=== PATIENT | male | born 1945 | race Caucasian/White ===

== ENCOUNTER → 2016-03-20 | Outpatient (CLI) | payer OTHER ==
--- NOTE | 2016-03-20 11:18 | DIAGNOSTIC IMAGING REPORT ---
CT SCAN OF THE ABDOMEN AND PELVIS WITHOUT IV CONTRAST CLINICAL HISTORY: Nephrolithiasis. Dysuria. COMPARISON STUDY: KUB dated 01/08/2013. TECHNIQUE: CT scan of the abdomen and pelvis is performed from the lung bases to the proximal femora. Images are reviewed in the axial, sagittal, and coronal planes. IV contrast was not administered for this examination. Automated dose control exposure was utilized. CT DOSE: 1692.07 mGy.cm FINDINGS: Lung bases: The heart is mildly enlarged and without pericardial effusion. The lung bases are clear noting dependent atelectasis. Liver: The unenhanced liver is normal in size, contour, and attenuation. There is no intrahepatic biliary ductal dilatation. Gallbladder: There are numerous calcified gallstones. There is no CT evidence of cholecystitis. Spleen: Normal in size and attenuation. Pancreas: Atrophic. Adrenal glands: Unremarkable. Kidneys: The unenhanced kidneys are atrophic and without hydronephrosis. There are 2 nonobstructing calculi in the lower pole of the right kidney measuring up to 8 mm. No left renal calculi are identified. There is nonspecific bilateral perinephric stranding, left greater than right. Bilateral renal cysts measure up to 3.4 cm. Additional subcentimeter hypodensities also likely represent cysts but are too small for definitive characterization. Abdominal vasculature: The abdominal aorta is normal in course and caliber noting moderate atherosclerotic calcification. Bowel: The small bowel and colon are normal in course and caliber. There is a large duodenal diverticulum. There is moderate sigmoid diverticulosis without CT evidence of acute diverticulitis. Moderate colonic fecal retention is observed. The appendix is well-visualized and normal. Peritoneum: There is no intraperitoneal free air or abdominal ascites. Lymphadenopathy: None. Pelvic viscera: The prostate gland is mildly enlarged and heterogeneous, measuring 5.4 cm in transverse diameter. The bladder wall appears thickened and trabeculated suggesting the sequelae of chronic outlet obstruction. Findings suggest previous right inguinal herniorrhaphy. There is a fat-containing left inguinal hernia. Skeletal structures: The skeletal structures are osteopenic. There is moderate lumbosacral spondylosis. No lytic or blastic lesions are seen. Chronic posttraumatic deformity and postoperative changes identified in the right pelvis. Arthritic change is present in the hips, right greater than left. IMPRESSION: 1. The kidneys demonstrate cortical atrophy and are without hydronephrosis. 2. There is nonspecific bilateral perinephric stranding, left greater than right. Correlate clinically and with urinalysis for evidence of urinary tract infection/pyelonephritis. 3. There are nonobstructing right renal calculi. No left renal calculi are identified. 4. Cholelithiasis without CT evidence of acute cholecystitis. 5. Cardiomegaly. 6. Moderate sigmoid diverticulosis without CT evidence of acute diverticulitis. 7. Prostatomegaly with evidence of chronic bladder outlet obstruction. 8. Additional findings as above. Electronically signed by: Conor Dick M.D. 03/20/2016 11:16 AM Dictated Date/Time: 03/20/2016 11:07 AM
== END | disposition home or self-care (01) ==
LOC: C.CTS 10:40
PROVIDERS: ATTEND Urology
DX: N20.0 Calculus of kidney (principal); R30.0 Dysuria; K80.20 Calculus of gallbladder without cholecystitis without obstruction; I51.7 Cardiomegaly; K57.92 Diverticulitis of intestine, part unspecified, without perforation or abscess without bleeding; N40.1 Benign prostatic hyperplasia with lower urinary tract symptoms

== ENCOUNTER → 2016-03-28 | Outpatient (CLI) | payer OTHER | END | disposition home or self-care (01) | LOC: C.LAB 10:32 | PROVIDERS: ATTEND Urology | DX: R30.0 Dysuria (principal) ==

== ENCOUNTER → 2016-05-07 | Outpatient (CLI) | payer OTHER ==
[2016-05-07 10:47] LABS: HEMATOCRIT 41.7 % (42-52); MEAN CORPUSCULAR HEMOGLOBIN 30.2 pg (25-34); MEAN CORPUSCULAR HGB CONC 34.3 g/dl (32-36); PLATELET COUNT 206 K/uL (130-400); RED BLOOD COUNT 4.74 M/uL (4.7-6.1); WHITE BLOOD COUNT 9.65 K/uL (4.8-10.8)
[2016-05-07 10:56] LABS: URINE APPEARANCE CLEAR (CLEAR); URINE BILIRUBIN NEG (NEG); URINE COLOR YELLOW; URINE NITRITE NEG (NEG); URINE SPECIFIC GRAVITY 1.011 (1.000-1.030); UROBILINOGEN NEG (NEG)
[2016-05-07 11:13] LABS: MANUAL MICROSCOPIC REQUIRED? NO; REVIEW REQ? NO
[2016-05-07 11:27] LABS: BLOOD UREA NITROGEN 29 mg/dl (7-18); BUN/CREATININE RATIO 15.3 (10-20); CARBON DIOXIDE 28 mmol/L (21-32); CHLORIDE 106 mmol/L (98-107); GLUCOSE 140 mg/dl (70-99); PHOSPHORUS 3.9 mg/dl (2.5-4.9); POTASSIUM 4.7 mmol/L (3.5-5.1); SODIUM 141 mmol/L (136-145)
[2016-05-07 11:43] LABS: URINE PROTIEN/CREAT RATIO 1.1 (0-0.2); URINE TOTAL PROTEIN 124.9 mg/dl (0-11.9)
== END | disposition home or self-care (01) ==
LOC: C.LAB1850 09:13
PROVIDERS: ATTEND Internal Medicine Nephrology
DX: D64.9 Anemia, unspecified (principal); N20.0 Calculus of kidney; N18.3 Chronic kidney disease, stage 3 (moderate); I12.9 Hypertensive chronic kidney disease with stage 1 through stage 4 chronic kidney disease, or unspecified chronic kidney disease; E55.9 Vitamin D deficiency, unspecified

== ENCOUNTER → 2016-05-14 | Outpatient (CLI) | payer OTHER ==
--- NOTE | 2016-05-14 10:58 | DIAGNOSTIC IMAGING REPORT ---
KUB CLINICAL HISTORY: N20.0 [id number] nephrocalcinosis COMPARISON STUDY: 01/08/2013 FINDINGS: Postoperative changes to the right hip as well as right acetabular region. No significant nephrocalcinosis. Nonobstructive bowel pattern. IMPRESSION: Normal study Electronically signed by: Burt Rivero M.D. 05/14/2016 10:56 AM Dictated Date/Time: 05/14/2016 10:51 AM
== END | disposition home or self-care (01) ==
LOC: C.LAB 09:48
PROVIDERS: ATTEND Urology
DX: N20.0 Calculus of kidney (principal); N40.0 Benign prostatic hyperplasia without lower urinary tract symptoms; N41.1 Chronic prostatitis

== ENCOUNTER → 2016-05-25 | Outpatient (CLI) | payer OTHER ==
[~2016-05-25] MED LIST: AMLO-110 PO; ASCO1CAP3 PO; ATOR-22 PO; CIPR250T3 PO; DUTA0.5C PO; ERGO500037 PO; FERR1TAB23 PO; FLM4 PO; INSU1.2I INJ; METO25TA56 PO; NVLGI/PEN INJ; OXYC7.5T65 PO; PANT40TA PO; PHEN-939 PO; SUCR1TAB29 PO; TRAV0.00 OP; URC10 PO
--- NOTE | 2016-05-25 16:11 | DIAGNOSTIC IMAGING REPORT ---
KUB CLINICAL HISTORY: N20.0 [id number] COMPARISON STUDY: 05/14/2016 FINDINGS: The renal shadows are partially obscured by bowel gas and fecal material. No renal calculi are visualized. There is a left pelvic basin calcification unchanged the prior study likely are presenting a phlebolith. There is no pathologic bowel dilatation. Postsurgical changes involve the right acetabular region. There are osteoarthritic changes present within the right hip with marked joint space narrowing. IMPRESSION: 1. No evidence of pathologic bowel dilatation 2. No urinary tract calculi are visualized on conventional radiographic imaging Electronically signed by: Mor Saini M.D. 05/25/2016 4:09 PM Dictated Date/Time: 05/25/2016 4:08 PM
== END | disposition home or self-care (01) ==
LOC: C.RAD 15:46
PROVIDERS: ATTEND Nurse Practitioner Family
DX: N20.0 Calculus of kidney (principal)

== ENCOUNTER → 2016-11-07 | Outpatient (CLI) | payer OTHER ==
[2016-11-07 17:19] LABS: HEMATOCRIT 40.7 % (42-52); MEAN CELL VOLUME 90.8 fL (80-100); MEAN CORPUSCULAR HEMOGLOBIN 29.9 pg (25-34); MEAN CORPUSCULAR HGB CONC 32.9 g/dl (32-36); MEAN PLATELET VOLUME 10.6 fL (7.4-10.4); PLATELET COUNT 214 K/uL (130-400); RED BLOOD COUNT 4.48 M/uL (4.7-6.1); WHITE BLOOD COUNT 9.12 K/uL (4.8-10.8)
[2016-11-07 17:28] LABS: URINE APPEARANCE CLEAR (CLEAR); URINE BILIRUBIN NEG (NEG); URINE COLOR YELLOW; URINE EPITHELIAL CELL AUTO 0-5 /lpf (0-5); URINE NITRITE NEG (NEG); URINE SPECIFIC GRAVITY 1.018 (1.000-1.030); UROBILINOGEN NEG (NEG)
[2016-11-07 17:34] LABS: MANUAL MICROSCOPIC REQUIRED? NO; REVIEW REQ? NO
[2016-11-07 17:46] LABS: URINE PROTIEN/CREAT RATIO 1.4 (0-0.2); URINE TOTAL PROTEIN 143.7 mg/dl (0-11.9)
[2016-11-07 17:48] LABS: ALB/GLOB RATIO 0.9 (0.9-2); ALKALINE PHOSPHATASE 105 U/L (45-117); ALT/SGPT 21 U/L (12-78); AST/SGOT 15 U/L (15-37); BLOOD UREA NITROGEN 33 mg/dl (7-18); BUN/CREATININE RATIO 17.5 (10-20); CARBON DIOXIDE 30 mmol/L (21-32); CHLORIDE 108 mmol/L (98-107); GLUCOSE 80 mg/dl (70-99); MAGNESIUM 2.2 mg/dl (1.8-2.4); SODIUM 142 mmol/L (136-145); URIC ACID 6.8 mg/dl (2.6-7.2)
== END | disposition home or self-care (01) ==
LOC: C.LAB1850 15:39
PROVIDERS: ATTEND Internal Medicine Nephrology
DX: D64.9 Anemia, unspecified (principal); N20.0 Calculus of kidney; I12.9 Hypertensive chronic kidney disease with stage 1 through stage 4 chronic kidney disease, or unspecified chronic kidney disease; N18.3 Chronic kidney disease, stage 3 (moderate); E55.9 Vitamin D deficiency, unspecified

== ENCOUNTER → 2016-11-28 | Outpatient (CLI) | payer OTHER ==
--- NOTE | 2016-11-28 08:17 | DIAGNOSTIC IMAGING REPORT ---
CT OF THE ABDOMEN AND PELVIS WITHOUT CONTRAST CLINICAL HISTORY: Nephrolithiasis. COMPARISON STUDY: CT of the abdomen and pelvis March 20, 2016 and KUB May 25, 2016. TECHNIQUE: Axial images of the abdomen and pelvis were obtained without IV contrast. Images were reviewed in the axial, sagittal, and coronal planes. A dose lowering technique was utilized adhering to the principles of ALARA. FINDINGS: Several right renal calculi are noted, the largest of which is a 7 mm lower pole calculus. There are a few punctate left renal calculi. There are no ureteral calculi and there is no hydronephrosis. There are no bladder calculi. The prostate is mildly enlarged. Mild bilateral perinephric infiltration is unchanged. There are multiple water attenuation bilateral renal lesions. These are suboptimally assessed on this exam but favor cysts. There are gallstones within the gallbladder. Unenhanced images of the liver, spleen, adrenal glands and pancreas are unremarkable. Duodenal diverticula are noted. There is colonic diverticulosis without evidence for acute diverticulitis. A previous right acetabular internal fixation is noted. There are no suspicious osseous lesions. There is no lymphadenopathy. IMPRESSION: 1. Bilateral nephrolithiasis, slightly increased since CT of March 20, 2016. No ureteral calculi or hydronephrosis. 2. Cholelithiasis. 3. Colonic diverticulosis without evidence for acute diverticulitis. 4. Mild enlargement of the prostate. Electronically signed by: Pablo Owusu M.D. 11/28/2016 8:15 AM Dictated Date/Time: 11/28/2016 8:00 AM
== END | disposition home or self-care (01) ==
LOC: C.CTS 07:30
PROVIDERS: ATTEND Urology
DX: N20.0 Calculus of kidney (principal); K80.20 Calculus of gallbladder without cholecystitis without obstruction; K57.30 Diverticulosis of large intestine without perforation or abscess without bleeding

== ENCOUNTER → 2016-12-11 | Outpatient (CLI) | payer OTHER | END | disposition home or self-care (01) | LOC: C.LABSPEC 17:04 | PROVIDERS: ATTEND Nurse Practitioner Adult Health | DX: N41.1 Chronic prostatitis (principal) ==

== ENCOUNTER 2017-01-28 08:14 | Day surgery (SDC) | payer OTHER ==
[2017-01-16 13:27] VITALS: BMI 38.0
--- NOTE | 2017-01-16 13:56 | PAT Medication Instructions ---
Service Date Jan 16, 2017. Current Home Medication List Amlodipine (Norvasc), 5 MG PO QAM Ascorbic Acid (Vitamin C), 500 MG PO QPM Atorvastatin (Lipitor), 20 MG PO QAM Dutasteride (Avodart), 0.5 MG PO QAM Ergocalciferol (Vitamin D 08180 Unit), 50,000 UNIT PO MONTHLY Ferrous Sulfate (Iron), 325 MG PO BID Insulin Aspart (Novolog Flexpen), INJ SC Insulin Glargine (Toujeo Solostar), 74 UNITS INJ HS Metoprolol Tartrate (Lopressor) (Lopressor), 25 MG PO BID Pantoprazole (Protonix), 40 MG PO QAM Potassium Citrate (Potassium Citrate), 10 MEQ PO QAM Sucralfate (Carafate), 1 GM PO QID Tamsulosin HCl (Tamsulosin HCl), 0.8 MG PO HS Travoprost (Travatan Z), 1 DROPS OP HS Medication Instructions For Your Scheduled Surgery - Hold the following medications the morning of surgery: Dutasteride (Avodart), 0.5 MG PO QAM Ergocalciferol (Vitamin D 82291 Unit), 50,000 UNIT PO MONTHLY Ferrous Sulfate (Iron), 325 MG PO BID Insulin Aspart (Novolog Flexpen), INJ SC Potassium Citrate (Potassium Citrate), 10 MEQ PO QAM Sucralfate (Carafate), 1 GM PO QID - Take the following medications the morning of surgery with a sip of water: Metoprolol Tartrate (Lopressor) (Lopressor), 25 MG PO BID Pantoprazole (Protonix), 40 MG PO QAM Atorvastatin (Lipitor), 20 MG PO QAM Amlodipine (Norvasc), 5 MG PO QAM - Take the following medications as scheduled the night before surgery: Tamsulosin HCl (Tamsulosin HCl), 0.8 MG PO HS Travoprost (Travatan Z), 1 DROPS OP HS Sucralfate (Carafate), 1 GM PO QID Metoprolol Tartrate (Lopressor) (Lopressor), 25 MG PO BID Insulin Glargine (Toujeo Solostar), 74 UNITS INJ HS Insulin Aspart (Novolog Flexpen), INJ SC Ferrous Sulfate (Iron), 325 MG PO BID Ascorbic Acid (Vitamin C), 500 MG PO QPM If you have any questions please call us at [phone] or [phone] or [phone]
--- NOTE | 2017-01-16 14:27 | DIAGNOSTIC IMAGING REPORT ---
CHEST 2 VIEWS ROUTINE HISTORY: Preop. COMPARISON: None. FINDINGS: There are low lung volumes. There are few bibasilar linear densities suggesting subsegmental atelectasis or scarring. The lungs are otherwise clear. No pleural effusions. No pneumothorax. IMPRESSION: No acute process. Electronically signed by: Nasim Sanchez M.D. 01/16/2017 2:26 PM Dictated Date/Time: 01/16/2017 2:24 PM
[2017-01-16 14:45] LABS: BASO % 0.2 %; BASO ABS # 0.02 K/uL (0-0.2); COMPLETE YES; EOS % 3.7 %; HEMATOCRIT 40.6 % (42-52); IG% 0.2 %; LYMPH ABS # 1.73 K/uL (1.2-3.4); MEAN CORPUSCULAR HEMOGLOBIN 30.3 pg (25-34); MEAN CORPUSCULAR HGB CONC 33.3 g/dl (32-36); MEAN PLATELET VOLUME 10.5 fL (7.4-10.4); MONO % 7.3 %; NEUT % 69.6 %; PLATELET COUNT 216 K/uL (130-400); RED BLOOD COUNT 4.46 M/uL (4.7-6.1); WHITE BLOOD COUNT 9.12 K/uL (4.8-10.8)
[2017-01-16 14:58] LABS: URINE APPEARANCE CLEAR (CLEAR); URINE BILIRUBIN NEG (NEG); URINE COLOR YELLOW; URINE NITRITE NEG (NEG); URINE PH 6.5 (4.5-7.5); URINE SPECIFIC GRAVITY 1.017 (1.000-1.030); UROBILINOGEN NEG (NEG)
[2017-01-16 15:01] LABS: MANUAL MICROSCOPIC REQUIRED? NO; REVIEW REQ? NO
[2017-01-16 15:46] LABS: CREATININE 2.04 mg/dl (0.60-1.40)
[2017-01-16 15:47] LABS: BUN/CREATININE RATIO 13.9 (10-20); CALCIUM 8.8 mg/dl (8.5-10.1); POTASSIUM 5.2 mmol/L (3.5-5.1)
[~2017-01-28] VITALS: Ht 182.9 cm; Wt 128.8 kg
[~2017-01-28 08:14] MED LIST changes: -CIPR250T3 PO; +CIPROFLOXACIN / D5W 400 MG IV SCH; +LACTATED RINGER'S 1000ML 1,000 ML IV SCH; -OXYC7.5T65 PO; -PHEN-939 PO
--- NOTE | 2017-01-28 08:33 | History & Physical Bridge Note ---
H&P Re-Evaluation Bridge Note: I have examined the patient, reviewed the History & Physical and in the interval since the performance of the History & Physical I have noted the following changes of clinical significance: No changes noted
[2017-01-28 08:35] VITALS: BP 190/97; PULSE 88; TEMP 36.7; O2SAT 95; Ht 182.9 cm; Wt 128.8 kg
[2017-01-28] MEDS ORDERED: LIDOCAINE HCL 2% 2 ML VIAL (20MG/ML) ONE (09:29)
[2017-01-28] MEDS ORDERED: DEXAMETHASONE SOD INJ 4 MG/ML VIAL ONE (09:29)
[2017-01-28] MEDS ORDERED: ONDANSETRON INJ 2 MG/ML 2 ML VIAL ONE (09:29)
[2017-01-28] MEDS ORDERED: PROPOFOL IV EMULSION 10 MG/ML 20 ML VIAL IV ONE (09:29)
[2017-01-28] MEDS ORDERED: FENTANYL CITRATE INJ 50 MCG/1 ML 2 ML VIAL ONE (09:29)
[2017-01-28] MEDS ORDERED: MIDAZOLAM HCL 1 MG/ML 2ML VIAL ONE (09:29)
[2017-01-28] MEDS ORDERED: LABETALOL HCL IV 5 MG/ML 20ML IV PRN (10:00)
[2017-01-28] MEDS ORDERED: ONDANSETRON INJ 2 MG/ML 2 ML VIAL IV PRN (10:00)
[2017-01-28] MEDS ORDERED: ATROPINE SULFATE 0.1 MG/ML 5ML SYR IV PRN (10:00)
[2017-01-28] MEDS ORDERED: HYDROmorphone INJ 1 MG/ML SYR IV PRN (10:00)
[2017-01-28] MEDS ORDERED: MEPERIDINE HCL 25 MG/ML CARP IV PRN (10:00)
[2017-01-28] MEDS ORDERED: EpHEDrine SULFATE INJ 50 MG/ML AMP IV PRN (10:00)
[2017-01-28] MEDS ORDERED: BELLADONNA/OPIUM SUPP 60 MG SUPP PR ONE (10:44)
[2017-01-28] MEDS: FENTANYL CITRATE INJ 50 MCG/1 ML 2 ML VIAL IV PRN ×4 (11:28→11:43)
[2017-01-28] MEDS ORDERED: OXYC7.5T65 PO (11:29)
[2017-01-28] MEDS ORDERED: CIPR250T3 PO (11:29)
[2017-01-28] MEDS ORDERED: PHEN-939 PO (11:29)
--- NOTE | 2017-01-28 11:36 | Discharge Instructions ---
Discharge Instructions Date of Service Jan 28, 2017. Admission Reason for Admission: Benign Prostatic Hyperplasia Discharge Discharge Diagnosis / Problem: BPH Discharge Goals Goal(s): Improve function, Improve disease control, Therapeutic intervention Activity Recommendations Activity Limitations: as noted below Lifting Limitations: no more than 25 pounds, gradually increase as tolerated Exercise/Sports Limitations: rest today, gradually increase as tolerated May Resume Sexual Activity: after follow-up appointment Shower/Bathe: tomorrow (no tub bath with jameson in place, may shower) Driving or Machine Use: resume 1 day after discharge . Instructions / Follow-Up Instructions / Follow-Up Jameson to gravity drainage as instructed, office visit for catheter removal Jan 29, 2017 at 1:40 PM. Current Hospital Diet Patient's current hospital diet: Discharge Diet Recommended Diet: Regular Diet (good fluid intake) Procedures Procedures Performed: Meatal Dilation; Greenlight Transuretheral Resection of Prostate Pending Studies Studies pending at discharge: no Medical Emergencies . Who to Call and When: Medical Emergencies: If at any time you feel your situation is an emergency, please call 911 immediately. . Non-Emergent Contact Non-Emergency issues call your: Urologist Call Non-Emergent contact if: you have a fever, temperature is above 101, your pain is not controlled, your pain is worsening, your pain is unusual for you, your pain is concerning you, you have any medication questions . . "Provider Documentation" section prepared by Steve Eid. . VTE Core Measure Inpt VTE Proph given/why not?: SCD's [place] Drug Monitoring Program Search Results: patient reviewed within database, no issues identified
--- NOTE | 2017-01-28 11:39 | [facility] Post Operative Brief Note ---
Immediate Operative Summary Operative Date Jan 28, 2017. Pre-Operative Diagnosis Benign Prostatic Hyperplasia Post-Operative Diagnosis Benign Prostatic Hyperplasia Procedure(s) Performed Meatal Dilation; Greenlight Transuretheral Resection of Prostate Surgeon Dr. Lokesh Eid Director Business Management Surgeon(s) NA Estimated Blood Loss 5mL Findings Open fossa after 82K J used with excellent hemostasis. Specimens none per surgeon Drains 20 fr 10 cc H2O jameson Anesthesia GALMA Complication(s) None Disposition Recovery Room / PACU
[2017-01-28] MEDS ORDERED: OXYCODONE/ACETAMINOPHEN 5-325 TAB PO PRN (11:45)
[2017-01-28] MEDS ORDERED: PHENAZOPYRIDINE HCL 100 MG TAB PO PRN (11:45)
[2017-01-28] MEDS ORDERED: PHENAZOPYRIDINE HCL 200 MG TAB PO ONE (11:55)
[2017-01-28 12:15] VITALS: BP 160/86; PULSE 64; TEMP 36.3; O2SAT 93
--- NOTE | 2017-01-28 12:41 | Anesthesiology Progress Note ---
Anesthesia Post Op Note Date & Time Jan 28, 2017 at 12:41 Vital Signs Pain Intensity: 4 Vital Signs Past 12 Hours Date Time Temp Pulse Resp B/P (MAP) Pulse Ox O2 Delivery O2 Flow Rate FiO2 01/28/17 12:05 67 17 168/90 94 Nasal Cannula 2 01/28/17 11:55 36.3 67 17 167/96 94 Nasal Cannula 3 01/28/17 11:45 77 16 135/99 92 Nasal Cannula 5 01/28/17 11:35 79 20 147/75 92 Oxymask 10 01/28/17 11:25 75 18 159/92 96 Oxymask 10 01/28/17 11:16 36.3 79 14 132/97 95 Oxymask 10 01/28/17 08:35 36.7 88 18 190/97 (128) 95 Room Air Notes Mental Status: alert / awake / arousable, participated in evaluation Pt Amnestic to Procedure: Yes Nausea / Vomiting: adequately controlled Pain: adequately controlled Airway Patency, RR, SpO2: stable & adequate BP & HR: stable & adequate Hydration State: stable & adequate Anesthetic Complications: no major complications apparent
[2017-01-28 12:50] VITALS: BP 150/83; PULSE 66; TEMP 36.4; O2SAT 95
[2017-01-28 13:15] VITALS: BP 151/85; PULSE 72; O2SAT 96
--- NOTE | 2017-01-28 14:15 | [facility] Operative Report ---
Operative Report Operative Date Jan 28, 2017. Pre-Operative Diagnosis Benign Prostatic Hyperplasia Post-Operative Diagnosis Benign Prostatic Hyperplasia, Meatal Stenosis Procedure(s) Performed Meatal Dilation; Greenlight Transuretheral Resection of Prostate Surgeon Dr. Lokesh Eid Mobile Application Tester Surgeon(s) NA Estimated Blood Loss 5mL Findings Open fossa after 82KJ energy used, excellent hemostasis. Specimens none per surgeon Drains 20 fr 10 cc H2O jameson Anesthesia GALMA Complication(s) None Disposition Recovery Room / PACU Indications 71-year-old male with recurrent bouts of worsening voiding despite the use of maximal medical therapy who is here today for greenlight vaporization of his prostate gland to manage his disease. Please see H&P for further details. Informed consent reviewed with the patient preoperatively today. Intravenous ciprofloxacin provided for antibiotic coverage and SCDs used for DVT prophylaxis. Description of Procedure Patient was properly identified and brought into the operative suite after identification of appropriate consent of the chart. General anesthesia with laryngeal mask was initiated and patient was prepped and draped in the standard fashion for this procedure. Full timeout was followed. Greenlight laser resectoscope was attempted to be introduced into the bladder with resistance at the level of the meatus. This was dilated using serial male dilators to a 20 [place] caliber then allowing for easy passage of the greenlight laser resectoscope. Bladder was surveyed illustrating ureteral orifices which were adequately removed from the bladder neck and moderate trabeculation. No intravesical lesions, papillary masses or mucosal changes were appreciated. No calculi were present. Using a SideFire greenlight laser fiber circumferential vaporization of the prostate gland was performed. Relaxing incisions at the bladder neck were made to avoid future bladder neck contracture. After using approximately 82,000 J of energy prostatic fossa was noted to be well open with excellent hemostasis. Bladder was partially distended and resectoscope was removed. 20 [place]ian Jameson catheter was placed with return of clear irrigant with 10 mL of sterile water in the balloon. Anesthesia was reversed after provision of the belladonna and opium suppository. Patient was transferred to the recovery room in stable condition. Follow-up care: Patient will be discharged home with a prescription for ciprofloxacin, Percocet and Pyridium. Outpatient trial void is confirmed. Patient is instructed to contact our service if he note any fevers, chills, nausea, vomiting or other difficulties in the postoperative period. Discharge instructions are provided. I attest to the content of the Intraoperative Record and any orders documented therein. Any exceptions are noted below.
== END 2017-01-28 14:05 | disposition home or self-care (01) ==
LOC: C.ACU 08:14
PROVIDERS: ATTEND Urology
DX: N40.1 Benign prostatic hyperplasia with lower urinary tract symptoms (principal); N32.89 Other specified disorders of bladder; N41.1 Chronic prostatitis; R30.0 Dysuria; D64.9 Anemia, unspecified; I12.9 Hypertensive chronic kidney disease with stage 1 through stage 4 chronic kidney disease, or unspecified chronic kidney disease; N18.3 Chronic kidney disease, stage 3 (moderate)

== ENCOUNTER → 2017-05-06 | Outpatient (CLI) | payer OTHER ==
[~2017-05-06] MED LIST changes: +CIPR250T3 PO; -CIPROFLOXACIN / D5W 400 MG IV SCH; -LACTATED RINGER'S 1000ML 1,000 ML IV SCH; +OXYC7.5T65 PO
--- NOTE | 2017-05-06 11:57 | DIAGNOSTIC IMAGING REPORT ---
KUB CLINICAL HISTORY: Chronic prostatitis. COMPARISON STUDY: CT of the abdomen and pelvis November 28, 2016 and KUB May 25, 2016. FINDINGS: Right acetabular internal fixation is incidentally noted. Bowel gas pattern is normal. A left pelvic calcification was shown to represent a phlebolith on prior CT. No urinary calculi are identified however the calculi shown on CT of November 28, 2016 may be radiolucent. IMPRESSION: No urinary calculi identified by radiography. However, the calculi shown on prior CT may be radiolucent by radiography. Electronically signed by: Pablo Owusu M.D. 05/06/2017 11:56 AM Dictated Date/Time: 05/06/2017 11:51 AM
[2017-05-06 12:42] LABS: BLOOD UREA NITROGEN 28 mg/dl (7-18); CREATININE 1.97 mg/dl (0.60-1.40)
== END | disposition home or self-care (01) ==
LOC: C.LAB 10:41
PROVIDERS: ATTEND Urology
DX: N41.1 Chronic prostatitis (principal)

== ENCOUNTER → 2017-05-06 | Outpatient (CLI) | payer OTHER ==
[2017-05-06 12:16] LABS: HEMATOCRIT 40.9 % (42-52); HEMOGLOBIN 13.8 g/dL (14.0-18.0); MEAN CELL VOLUME 89.1 fL (80-100); MEAN CORPUSCULAR HEMOGLOBIN 30.1 pg (25-34); MEAN CORPUSCULAR HGB CONC 33.7 g/dl (32-36); PLATELET COUNT 271 K/uL (130-400); WHITE BLOOD COUNT 10.25 K/uL (4.8-10.8)
[2017-05-06 12:38] LABS: ALBUMIN 3.1 gm/dl (3.4-5.0); BLOOD UREA NITROGEN 28 mg/dl (7-18); CARBON DIOXIDE 27 mmol/L (21-32); CREATININE 2.07 mg/dl (0.60-1.40); GLUCOSE 128 mg/dl (70-99); POTASSIUM 5.2 mmol/L (3.5-5.1); SODIUM 139 mmol/L (136-145)
[2017-05-06 12:39] LABS: PHOSPHORUS 3.2 mg/dl (2.5-4.9)
== END | disposition home or self-care (01) ==
LOC: C.LAB1850 10:02
PROVIDERS: ATTEND Internal Medicine Nephrology
DX: E11.9 Type 2 diabetes mellitus without complications (principal); D64.9 Anemia, unspecified; N20.0 Calculus of kidney; N18.3 Chronic kidney disease, stage 3 (moderate); I12.9 Hypertensive chronic kidney disease with stage 1 through stage 4 chronic kidney disease, or unspecified chronic kidney disease; E55.9 Vitamin D deficiency, unspecified

== ENCOUNTER → 2017-09-13 | Outpatient (CLI) | payer OTHER ==
[~2017-09-13] MED LIST changes: -AMLO-110 PO; -CIPR250T3 PO; -FLM4 PO; +LOSA1TAB PO; -OXYC7.5T65 PO; -URC10 PO
[2017-09-13 12:27] LABS: BLOOD UREA NITROGEN 39 mg/dl (7-18); CALCIUM 8.3 mg/dl (8.5-10.1); CARBON DIOXIDE 24 mmol/L (21-32); CREATININE 2.17 mg/dl (0.60-1.40); GLUCOSE 98 mg/dl (70-99); POTASSIUM 4.8 mmol/L (3.5-5.1); SODIUM 139 mmol/L (136-145)
--- NOTE | 2017-10-25 07:07 | CODING QUERY MEDICAL NECESSITY ---
TREATMENT RENDERED WITHOUT A DIAGNOSIS To promote full compliance with coding requirements relating to patient care, physician participation is requested in all cases of city controller uncertainty. Please assist us with providing a diagnosis/symptom for the test(s) below: A diagnosis/symptom was not documented on your Order. A valid diagnosis/symptom is required to bill all insurances. Please remember that we are unable to code a diagnosis of rule out, probable, possible, questionable, or suspected. Tests that require a diagnosis: DOS: 09/13/17 * PARTIAL RENAL PROFILE DIAGNOSIS: Provider Signature: Date: Thank you Zehra Armstrong [employer] Information Management Once completed, please kindly fax back to [phone] For questions please call [phone]
== END | disposition home or self-care (01) ==
LOC: C.LAB1850 10:39
PROVIDERS: ATTEND Family Medicine
DX: N17.9 Acute kidney failure, unspecified (principal)

== ENCOUNTER 2018-02-23 02:03 | Inpatient (IN) ==
[2018-02-23] MEDS ORDERED: SODIUM CHLORIDE 0.9% 1000ML 1,000 ML IV ONE (02:25)
[2018-02-23] MEDS ORDERED: KETOROLAC (**for OR use only**) 30 MG/ML VIAL IV STA (02:25)
[2018-02-23] MEDS ORDERED: KETOROLAC 30 MG/ML VIAL ONE (02:32)
[2018-02-23 02:45] LABS: Basophils # (auto) 0.01 K/uL (0-0.2); Basophils % (auto) 0.1 %; Eosinophils # (auto) 0.22 K/uL (0-0.5); Eosinophils % (auto) 1.8 %; Hematocrit (blood only) 42.4 % (42-52); Hemoglobin 14.4 g/dL (14.0-18.0); Immature Granulocytes # (auto) 0.03 K/uL (0.00-0.02); Immature Granulocytes % (auto) 0.2 %; Lymphocytes # (auto) 1.66 K/uL (1.2-3.4); Lymphocytes % (auto) 13.8 %; Mean Corpuscular Volume 90.8 fL (80-100); Mean Platelet Volume 10.8 fL (7.4-10.4); Monocytes # (auto) 0.77 K/uL (0.11-0.59); Monocytes % (auto) 6.4 %; Neutrophils # (auto) 9.32 K/uL (1.4-6.5); Neutrophils % (auto) 77.7 %; Platelet Count 203 K/uL (130-400); RDW Coefficient of Variation 13.1 % (11.5-14.5); RDW Standard Deviation 43.1 fL (36.4-46.3); Red Blood Count 4.67 M/uL (4.7-6.1); White Blood Count 12.01 K/uL (4.8-10.8)
[2018-02-23 02:47] LABS: Appearance Urine Clear (Clear); Bacteria Urine Automated Negative (Negative); Bilirubin Urine Negative (Negative); Cast Urine Automated 0 /lpf (0-5); Color Urine Yellow; Epithelial Cell Urine Auto 0-5 /lpf (0-5); Glucose Urine UA Negative (Negative); Ketones Urine Negative (Negative); Leukocyte Esterase Urine Negative (Negative); Nitrite Urine Negative (Negative); Protein Urine 2+ (Negative); Specific Gravity Urine 1.009 (1.000-1.030); Urobilinogen Urine Negative (Negative)
[2018-02-23 03:02] LABS: Albumin Level 3.4 gm/dl (3.4-5.0); BUN Creatinine Ratio 15.9 (10-20); Est GFR (African American) 31.8; Est GFR (Non-African American) 27.4; Potassium 4.7 mmol/L (3.5-5.1)
[2018-02-23 03:05] LABS: Albumin Globulin Ratio 0.8 (0.9-2); Bilirubin,Total 0.4 mg/dl (0.1-1); Globulin 4.3 gm/dl (2.5-4.0); Total Protein 7.7 gm/dl (6.4-8.2)
[2018-02-23] MEDS ORDERED: SODIUM CHLORIDE 0.9% 500 ML IV SCH (04:15)
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
[2018-02-23] MEDS ORDERED: DEXTROSE 50% 50 ML SYRINGE IV PRN (06:58)
[2018-02-23] MEDS ORDERED: GLUCAGON FOR INJ 1 MG VIAL SQ PRN (06:58)
[2018-02-23] MEDS ORDERED: GLUCOSE 10 TABS/TUBE PO PRN (06:58)
[2018-02-23] MEDS ORDERED: GLUCOSE 40% GEL 15 GM TUBE PO PRN (06:58)
[2018-02-23] MEDS ORDERED: ACETAMINOPHEN 1000 MG/100 ML IV IV PRN (06:58)
[2018-02-23] MEDS ORDERED: CARBOHYDRATES FOR HYPOGLYCEMIA PO PRN (06:58)
[2018-02-23] MEDS ORDERED: Nursing to Pharmacy Communication ONE ×3 (07:03→22:21)
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
[2018-02-23] MEDS: SODIUM CHLORIDE 0.9% 1000ML 1,000 ML IV SCH ×2 (08:02→16:46)
[2018-02-23] MEDS: SUCRALFATE 1 GM TAB PO SCH ×4 (08:02→20:40)
[2018-02-23] MEDS: PANTOprazole 40 MG TAB PO SCH (08:03)
[2018-02-23] MEDS: LOSARTAN POTASSIUM 25 MG TAB PO SCH (08:03)
[2018-02-23] MEDS: METOPROLOL TARTRATE 25 MG TAB PO SCH ×2 (08:03→20:40)
--- NOTE | 2018-02-23 08:31 | CT Scan Report ---
ABDOMEN AND PELVIS CT WITHOUT CONTRAST CT DOSE: 1895.96 mGy.cm HISTORY: Acute right-sided flank pain eval for right sided stone TECHNIQUE: Multiaxial CT images of the abdomen and pelvis were performed without contrast. A dose lo wering technique was utilized adhering to the principles of ALARA. COMPARISON STUDY: CT abdomen and pelvis 10/29/2017. FINDINGS: Mild dependent subsegmental bibasilar atelectasis. No pneumatosis or pneumoperitoneum. The imaged inf erior cardiac chambers are unremarkable with coronary arterial calcifications noted. Cholelithiasis. No CT evidence of acute cholecystitis. Liver, spleen, pancreas and adrenal glands are unremarkable. Hypodense lesions of the bilateral kidneys are suggestive of renal cyst. Mild bilateral cortical thin leilani and parenchymal scarring of the kidneys with bilateral perinephric stranding. Nonobstructing nep hrolithiasis of the inferior pole right kidney with conglomerate calculi measuring up to 1.1 cm. Kenneth tionally, there appears to be two calculi within the dependent renal pelvis on the right measuring up to 2 mm. Mild to moderate right-sided hydroureteronephrosis secondary to a 9 x 8 x 11 mm calculus of the proximal right ureter just distal to the ureteropelvic junction at the level of the superior end plate L2. Mild reactive perinephric and periureteral inflammatory stranding. Mild wall thickening wit h partial distention of the bladder. Prominent prostate. Small fat filled left inguinal hernia. Calci fication tortuosity of the abdominal aorta without aneurysm. No adenopathy. No bowel obstruction or focal bowel wall thickening. Large duodenal diverticulum. Colonic diverticulo sis without CT evidence of acute diverticulitis. Normal appendix. Evidence of remote epiploic appenda gitis about the ascending colon, image 240 series 3. Soft tissues are within normal limits. Bones beck ear to be intact. Multilevel facet arthrosis, spondylitic spurring with facet arthrosis. ORIF changes about the right acetabulum. Severe joint space narrowing with prominent subcortical cystic changes o f the right femoral acetabular joint. IMPRESSION: 1. Mild to moderate right-sided hydroureteronephrosis secondary to a 9 x 8 x 11 mm calculus of the pr oximal right ureter at the level of the superior endplate L2. 2. Additional nonobstructive right nephrolithiasis. 3. Cholelithiasis. 4. Colonic diverticulosis without acute diverticulitis. 5. Additional findings as above. Electronically signed by: Syed Ward M.D. 02/23/2018 8:29 AM
[2018-02-23] MEDS: INSULIN ASPART 100 UNITS/ML 3 ML PEN SC SCH ×4 (08:36→17:47)
[2018-02-23] MEDS ORDERED: ASCORBIC ACID 500 MG TAB PO SCH (09:00)
[2018-02-23] MEDS ORDERED: DUTASTERIDE 0.5 MG PO SCH (09:00)
[2018-02-23] MEDS: cefTRIAXone SODIUM 1,000 MG/50 ML BAG IV SCH (09:06)
[2018-02-23] MEDS ORDERED: TAMSULOSIN HCL 0.4 MG CAP PO ONE (09:27)
--- NOTE | 2018-02-23 09:35 | Hospitalist Progress Note ---
Date of Service February 23, 2018 Assessment & Plan (1) Ureterolithiasis: 72-year-old male was admitted on 23 February 2018 for a right-sided ureteral stone. Ureterolithiasis: Known history of the same. UA noted blood but otherwise not suggestive of an underlying infection. CT a/p non-con (as read by overnight radiologist) showed a 9 mm stone in the right proximal ureter as well as mild right hydronephrosis and additional nonobstructing renal stones. Blood WBC 12. Given IVF and toradol in ED. feeling better on the floor, minimal pain continue NSS at 100cc/hr, continue Rocephin for prophylaxis Morphine PRN keep NPO except meds until seen by urology, determine course of action has not required stent in the past, he would typically get lithotripsy at [place] (2) Hydronephrosis concurrent with and due to calculi of kidney and ureter: see above (3) Hypertension: On home losartan, metoprolol with sips BP elevated at 180 systolic from pain control pain utilize Hydralazine if it remains markedly elevated (4) Hyperlipidemia: Lipitor (5) GERD (gastroesophageal reflux disease): Protonix (6) Diabetes mellitus: At home is on Tresiba 74 units at midnight (his normal dosing time) and NovoLog. Here will convert to lantus but start at 20 units daily due to being NPO. Insulin sliding scale as well. monitor for hyper and hypoglycemia if he can eat can adjust Lantus (7) Chronic kidney disease: Admit Cr 2.28 (comparisons around same). BUN 36. Providing judicious IVF. Cr is 2.3, continue to monitor, making adequate urine (8) BPH (benign prostatic hyperplasia): s/p TURP, on Avodart start Flomax as well (9) Glaucoma: (10) DVT prophylaxis: SCD for now add medication once surgical intervention determined has a h/o provoked DVT and PE after orthopedic surgery Subjective patient resting comfortably, says the Morphine he had in the ED has worked for a few hours no hematuria seen, he is still making urine h/o multiple stones, in [place] they would resolve with lithotripsy in October he was able to pass a 5mm stone discussed that urology would be around, determine best course of action, ie cystoscopy with stent and/or litho BP elevated in 180's systolic, likely due to pain and stress, took AM meds labs from admission reviewed, Cr is 2.3, this is his baseline Review of Systems All systems reviewed & are unremarkable except as noted in HPI & below Genitourinary (Male): + flank pain (mild, right side); no dysuria, no difficulty urinating, no urinary frequency and no hematuria Physical Exam 2 Vital Signs (Past 24 Hours): Last Vital Signs Temp 36.3 C L 02/23/18 06:57 Pulse 106 H 02/23/18 06:57 Resp 18 02/23/18 06:57 BP 167/107 H 02/23/18 06:57 Pulse Ox 93 02/23/18 06:57 Constitutional: well developed, well nourished and + obese Eyes: PERRL, conjunctivae normal, anicteric sclerae ENMT: external ear and nose normal, oropharynx normal Neck: trachea midline, no thyromegaly Respiratory: normal respiratory effort, lungs clear to auscultation Cardiovascular: RRR, no murmur, no edema Gastrointestinal (Abdomen): normal bowel sounds, soft, nontender, no hepatosplenomegaly Musculoskeletal: no cyanosis or clubbing, extremities motor strength 5/5 Skin: no rashes, warm and dry Neurologic: patellar DTR's 2+ bilat, sensation intact and PERRL, EOMI, accommodation nl, no face palsy, no dysarthria Psychiatric: A+Ox3, euthymic affect Lymphatic: no cervical or axillary lymphadenopathy Results & Data Laboratory Results Laboratory Results - last 24 hr 02/23/18 02/23/18 02/23/18 02:35 02:35 02:35 WBC 12.01 H RBC 4.67 L Hgb 14.4 Hct 42.4 MCV 90.8 MCH 30.8 MCHC 34.0 RDW Std Deviation 43.1 RDW Coeff of Dorothy 13.1 Plt Count 203 MPV 10.8 H Immature Gran % (Auto) 0.2 Neut % (Auto) 77.7 Lymph % (Auto) 13.8 Daniels % (Auto) 6.4 Eos % (Auto) 1.8 Baso % (Auto) 0.1 Immature Gran # (Auto) 0.03 H Neut # (Auto) 9.32 H Lymph # (Auto) 1.66 Daniels # (Auto) 0.77 H Eos # (Auto) 0.22 Baso # (Auto) 0.01 Sodium 134 L Potassium 4.7 Chloride 102 Carbon Dioxide 26 Anion Gap 6.0 BUN 36 H Creatinine 2.28 H Est Cr Clr Drug Dosing 40.0 Est GFR ( Amer) 31.8 Est GFR (Non-Af Amer) 27.4 BUN/Creatinine Ratio 15.9 Glucose 194 H POC Glucose Calcium 9.0 Total Bilirubin 0.4 AST 13 L ALT 19 Alkaline Phosphatase 120 H Total Protein 7.7 Albumin 3.4 Globulin 4.3 H Albumin/Globulin Ratio 0.8 L Urine Color Yellow Urine Appearance Clear Urine pH 5.0 Ur Specific Fisher 1.009 Urine Protein 2+ H Urine Glucose (UA) Negative Urine Ketones Negative Urine Blood 2+ H Urine Nitrite Negative Urine Bilirubin Negative Urine Urobilinogen Negative Ur Leukocyte Esterase Negative Urine WBC (Auto) 1-5 Urine RBC (Auto) 0-4 U Hyaline Cast (Auto) 0 U Epithel Cells (Auto) 0-5 Urine Bacteria (Auto) Negative 02/23/18 06:47 WBC RBC Hgb Hct MCV MCH MCHC RDW Std Deviation RDW Coeff of Dorothy Plt Count MPV Immature Gran % (Auto) Neut % (Auto) Lymph % (Auto) Daniels % (Auto) Eos % (Auto) Baso % (Auto) Immature Gran # (Auto) Neut # (Auto) Lymph # (Auto) Daniels # (Auto) Eos # (Auto) Baso # (Auto) Sodium Potassium Chloride Carbon Dioxide Anion Gap BUN Creatinine Est Cr Clr Drug Dosing Est GFR ( Amer) Est GFR (Non-Af Amer) BUN/Creatinine Ratio Glucose POC Glucose 137 H Calcium Total Bilirubin AST ALT Alkaline Phosphatase Total Protein Albumin Globulin Albumin/Globulin Ratio Urine Color Urine Appearance Urine pH Ur Specific Fisher Urine Protein Urine Glucose (UA) Urine Ketones Urine Blood Urine Nitrite Urine Bilirubin Urine Urobilinogen Ur Leukocyte Esterase Urine WBC (Auto) Urine RBC (Auto) U Hyaline Cast (Auto) U Epithel Cells (Auto) Urine Bacteria (Auto) Diagnostic Findings CT ABDOMEN/PELVIS WITHOUT CONTRAST IMPRESSION: 1. Mild to moderate right-sided hydroureteronephrosis secondary to a 9 x 8 x 11 mm calculus of the proximal right ureter at the level of the superior endplate L2. 2. Additional nonobstructive right nephrolithiasis. 3. Cholelithiasis. 4. Colonic diverticulosis without acute diverticulitis. 5. Additional findings as above. Medications Administered Current Inpatient Medications Acetaminophen (Ofirmev) 1,000 mg IV Q8H PRN PRN Reason: Pain Stop: 03/25/18 06:57 Ascorbic Acid (Vitamin C) 500 mg PO QAM GERARDO Stop: 03/25/18 08:59 Atorvastatin Calcium (Lipitor) 20 mg PO QPM GERARDO Stop: 03/25/18 20:59 Dextrose (Dextrose 50%) 25 - 50 ml IV UD PRN; Protocol PRN Reason: Hypoglycemia Protocol Stop: 03/25/18 06:57 Ergocalciferol (Vitamin D2) 50,000 units PO Q30D@0900 G[facility]ARDO Stop: 03/30/18 08:59 Glucagon (Glucagen) 1 mg SQ UD PRN; Protocol PRN Reason: Hypoglycemia Protocol Stop: 03/25/18 06:57 Glucose (Glucose 40%) 15 - 30 gm PO UD PRN; Protocol PRN Reason: Hypoglycemia Protocol Stop: 03/25/18 06:57 Glucose (Dex4 Glucose) 4 - 8 tabs PO UD PRN; Protocol PRN Reason: Hypoglycemia Protocol Stop: 03/25/18 06:57 Ceftriaxone Sodium (Rocephin) 1,000 mg in 50 mls @ 100 mls/hr IV Q24H GERARDO Stop: 02/25/18 05:36 Last Admin: 02/23/18 09:06 Dose: 100 mls/hr Sodium Chloride (Nss 1000ml) 1,000 mls @ 100 mls/hr IV .Q10H GERARDO Stop: 03/25/18 06:57 Last Admin: 02/23/18 08:02 Dose: 75 mls/hr Insulin Aspart (Novolog Flexpen) 0 units SC Q6 G[facility]ARDO Stop: 03/25/18 07:29 Last Admin: 02/23/18 08:36 Dose: Not Given Insulin Glargine (Lantus Solostar Pen) 20 units SC Q12 G[facility]ARDO Stop: 03/25/18 20:59 Losartan Potassium (Cozaar) 25 mg PO QAM G[facility]ARDO Stop: 03/25/18 08:59 Last Admin: 02/23/18 08:03 Dose: 25 mg Metoprolol Tartrate (Lopressor) 25 mg PO BID G[facility]ARDO Stop: 03/25/18 08:59 Last Admin: 02/23/18 08:03 Dose: 25 mg Miscellaneous (Carbohydrates For Hypoglycemia) 15 - 30 gm PO UD PRN PRN Reason: Hypoglycemia Treatment Stop: 03/25/18 06:57 Miscellaneous (Order Awaiting Action) 1 ea N/A QS [facility] Stop: 03/25/18 07:59 Morphine Sulfate (Morphine Sulfate) 4 mg IV Q2H PRN PRN Reason: Moderate Pain Stop: 03/09/18 06:57 Pantoprazole Sodium (Protonix) 40 mg PO QAM [facility] Stop: 03/25/18 08:59 Last Admin: 02/23/18 08:03 Dose: 40 mg Sucralfate (Carafate Tab) 1 gm PO QID [facility] Stop: 03/25/18 08:59 Last Admin: 02/23/18 08:02 Dose: 1 gm Tamsulosin HCl (Flomax) 0.4 mg PO HS [facility] Stop: 03/25/18 20:59
[2018-02-23] MEDS: ASCORBIC ACID 500 MG TAB PO SCH (18:38)
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
[2018-02-23] MEDS: TAMSULOSIN HCL 0.4 MG CAP PO SCH (20:41)
[2018-02-23] MEDS: INSULIN GLARGINE SOLOSTAR 100 UNITS/ML 3 ML PEN SC SCH (20:46)
[2018-02-23] MEDS: MoRPHine SULFATE 4 MG/ML 1 ML CARP\\VIAL IV PRN (20:53)
[2018-02-23] MEDS ORDERED: TRAVOPROST Z 0.004% OPH SOLN 2.5 ML BTL OP SCH (21:00)
[2018-02-23] MEDS ORDERED: INSULIN ASPART 100 UNITS/ML 3 ML PEN SC SCH (21:00)
[2018-02-23] MEDS ORDERED: ATORVASTATIN 20 MG TAB PO SCH (21:00)
[2018-02-24] MEDS ORDERED: TRAVOPROST Z 0.004% OPH SOLN 2.5 ML BTL OP SCH
[2018-02-24] MEDS: INSULIN ASPART 100 UNITS/ML 3 ML PEN SC SCH ×4 (00:48→18:24)
[2018-02-24] MEDS: SODIUM CHLORIDE 0.9% 1000ML 1,000 ML IV SCH ×2 (02:53→16:49)
[2018-02-24] MEDS: cefTRIAXone SODIUM 1,000 MG/50 ML BAG IV SCH (05:21)
[2018-02-24] MEDS: MoRPHine SULFATE 4 MG/ML 1 ML CARP\\VIAL IV PRN ×2 (05:21→07:53)
[2018-02-24 06:56] LABS: Estimated Average Glucose 169 mg/dl
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
--- NOTE | 2018-02-24 09:15 | Hospitalist Progress Note ---
Date of Service February 24, 2018 Assessment & Plan (1) Ureterolithiasis: Known history of the same. - UA noted blood but otherwise not suggestive of an underlying infection. - CT a/p non-con showed a 9 mm stone in the right proximal ureter as well as mild right hydronephrosis and additional nonobstructing renal stones. - NSS at 100cc/hr, continue Rocephin for prophylaxis - continue Morphine PRN - OR 02/24 for cystoscopy and lithotripsy (2) Hydronephrosis concurrent with and due to calculi of kidney and ureter: see above (3) Hypertension: Continue home metoprolol, hold losartan until following the procedure (4) Hyperlipidemia: Continue home Lipitor (5) GERD (gastroesophageal reflux disease): Continue home Protonix (6) Diabetes mellitus: At home is on Tresiba 74 units at midnight (his normal dosing time) and NovoLog. Here will convert to lantus but start at 20 units daily due to being NPO. SS if he can eat can adjust Lantus (7) Chronic kidney disease: Admit Cr 2.28 which is baseline. Continue IVF (8) BPH (benign prostatic hyperplasia): s/p TURP, on Avodart Tamsulosin initiated (9) Glaucoma: (10) DVT prophylaxis: SCD for now due to procedure, start heparin subq when ok with urology following procedure has a h/o provoked DVT and PE after orthopedic surgery Subjective Mr. Milton's pain is well controlled. He denies any nausea or vomiting. He is scheduled for the OR at noon Review of Systems All systems reviewed & are unremarkable except as noted in HPI & below Physical Exam 2 Vital Signs (Past 24 Hours): Last Vital Signs Temp 36.7 C 02/24/18 07:47 Pulse 93 H 02/24/18 07:47 Resp 18 02/24/18 07:47 BP 151/87 H 02/24/18 07:47 Pulse Ox 94 02/24/18 07:47 Physical Exam: General: no distress Eyes: normal inspection, PERLL Respiratory: chest non tender, clear to auscultation, normal breath sounds, no respiratory distress, no accessory muscle use Cardiac: regular rate and rhythm, no rub or gallop, no murmur, no edema, no jvd GI/: active bowel sounds, no abd pain or tenderness, soft, non distended Extremities: normal range of motion, normal strength, non tender Neuro/Psych: alert and oriented x 3, normal mood and affect Skin: normal color, dry Results & Data Laboratory Results Abnormal lab results 02/23/18 02/23/18 02/23/18 Range/Units 12:06 17:01 20:34 POC Glucose 100 H 130 H 135 H (70-99) Hemoglobin A1c (4.5-5.6) % 02/24/18 02/24/18 Range/Units 05:18 05:29 POC Glucose 117 H (70-99) Hemoglobin A1c 7.5 H (4.5-5.6) %
[2018-02-24] MEDS: INSULIN GLARGINE SOLOSTAR 100 UNITS/ML 3 ML PEN SC SCH (09:24)
[2018-02-24] MEDS: METOPROLOL TARTRATE 25 MG TAB PO SCH (09:27)
[2018-02-24] MEDS: PANTOprazole 40 MG TAB PO SCH (09:28)
[2018-02-24] MEDS: SUCRALFATE 1 GM TAB PO SCH ×3 (09:28→16:04)
[2018-02-24] MEDS: LOSARTAN POTASSIUM 25 MG TAB PO SCH (09:28)
[2018-02-24] MEDS ORDERED: ePHEDrine sulfate 50 MG/ML AMP IV PRN (11:06)
[2018-02-24] MEDS ORDERED: fentaNYL citrate 100 MCG/2 ML VIAL IV PRN (11:06)
[2018-02-24] MEDS ORDERED: ATROPINE SULFATE 0.1 MG/ML 5ML SYR IV PRN (11:06)
[2018-02-24] MEDS ORDERED: ONDANSETRON INJ 2 MG/ML 2 ML VIAL IV PRN (11:06)
[2018-02-24] MEDS ORDERED: LIDOCAINE HCL 2% 2 ML VIAL/AMP(20MG/ML) INFIL ONE (11:10)
[2018-02-24] MEDS ORDERED: PROPOFOL IV EMULSION 10 MG/ML 20 ML VIAL IV ONE ×2 (11:10→12:17)
[2018-02-24] MEDS ORDERED: ONDANSETRON INJ 2 MG/ML 2 ML VIAL ONE (11:10)
[2018-02-24] MEDS ORDERED: fentaNYL citrate 100 MCG/2 ML VIAL ONE (11:11)
[2018-02-24] MEDS ORDERED: MIDAZOLAM HCL 1 MG/ML 2ML VIAL ONE (11:11)
--- NOTE | 2018-02-24 11:51 | History & Physical Bridge Note ---
Date of Service February 24, 2018 History & Physical Bridge Note I have examined the patient, reviewed the History & Physical and in the interval since the performance of the History & Physical I have noted the following changes of clinical significance: no changes noted
[2018-02-24] MEDS ORDERED: IOTHALAMATE MEGLUMINE II 17.2% 250 ML VIAL ONE (11:54)
[2018-02-24] MEDS ORDERED: PHENYLEPHRINE 100MCG/ML 5ML SYR ONE (12:33)
--- NOTE | 2018-02-24 12:45 | Operative Report ---
Post Operative Report Date of Surgery February 24, 2018 Pre & Post Diagnosis Operation Date: 02/24/18 12:05 Pre-Op Diagnosis: RIGHT URETEROLITHIASIS & HYDRONEPHROSIS Post-Op Diagnosis: RIGHT URETEROLITHIASIS & HYDRONEPHROSIS Procedure Operation Date: 02/24/18 12:05 Actual Procedures p Cystoscopy, Right Ureteroscopy, Laser Lithotripsy, stone extraction, and Right retrograde pyelogram and ureteral Stent Placement(Right) - Saul Morris II, DO Surgeon Saul Morris, II Drilling Engineering Manager None Estimated Blood Loss 2 Findings Consistent with Post-Op Diagnosis Very irritated ureter proximal to stone. Specimens Stone for analysis Drains 6 Fr Multilength Anesthesia Type General Complications none Disposition Disposition: Recovery Room Indications Patient with large obstructing stone and worsening flank pain and long history of stones. 10 mm stone at UPJ on right. Risks and benefits discussed at length. Description of Procedure Patient was consented and brought back to the operating room. Patient was placed under anesthesia in the supine position and moved to the dorsal lithotomy position. Patient was prepped and draped in the regular sterile fashion. A time out was completed. A 30degree Cystoscope was placed into the bladder and the entire bladder was examined. The UO's were identified. The UO was cannulized with a catheter and a retrograde pyelogram was completed. A wire was then placed. A ureteral access sheath and second safety wire was placed. The flexible ureteroscope was taken into the ureter. The entire ureter and renal pelvis were examined. The stones were identified. A laser fiber was selected and the stones were pulverized to dust and small fragments. Larger fragments were removed and sent for analysis. The entire area was once again examined. No residual large fragments or areas of concern were noted. The scope was slowly removed with the wire left in place. Contrast was placed through the scope for a pyelogram to assist in stent placement. The entire ureter was examined as the scope was slowly removed. No obstructions or other areas of concern were noted. With the wire in place, a 6 Fr Double J stent was placed. It was confirmed with fluoroscopy. With the stent in place, the bladder was emptied. The scope was removed. The patient was cleaned, aroused from anesthesia, and transferred to the pacu in stable condition having tolerated the procedure well with no complications. I was present and participated in all aspects of the procedure. The patient will be monitored in the PACU until transferred. I attest to the content of the Intraoperative Record and any orders documented therein. Any exceptions are noted below.
--- NOTE | 2018-02-24 13:53 | Anesthesiology Progress Note ---
Date of Service February 24, 2018 Anesthesia Post Procedure Vital Signs Vital Signs: Temp Pulse Pulse Pulse Pulse Resp BP 02/24/18 13:44 36.6 C 76 17 152/83 H 02/24/18 13:25 78 20 147/84 H 02/24/18 13:15 37 C 74 18 155/84 H 02/24/18 13:05 77 16 137/73 02/24/18 12:55 79 14 134/73 02/24/18 12:49 36.2 C L 80 12 106/71 02/24/18 10:42 37 C 89 20 180/93 H 02/24/18 07:47 36.7 C 93 H 18 151/87 H 02/23/18 23:10 36.9 C 79 16 167/89 H 02/23/18 20:36 86 171/101 H 02/23/18 14:55 36.6 C 86 18 142/77 H Pulse Ox 02/24/18 13:44 91 02/24/18 13:25 94 02/24/18 13:15 96 02/24/18 13:05 98 02/24/18 12:55 97 02/24/18 12:49 93 02/24/18 10:42 93 02/24/18 07:47 94 02/23/18 23:10 95 02/23/18 20:36 02/23/18 14:55 93 Pain Intensity Right Flank: Pain Intensity: 9 Notes Mental Status: alert / awake / arousable Patient Amnestic to Procedure: Yes Nausea / Vomiting: adequately controlled Pain: adequately controlled Airway Patency, RR, SpO2: stable & adequate BP & HR: stable & adequate Hydration State: stable & adequate Anesthetic Complications: no major complications apparent
--- NOTE | 2018-02-24 14:28 | Fluoroscopy Report ---
FL retrograde includes kub HISTORY: 72 years-old Male CYSTO status post cystourethrogram in a patient with history of nephrolit hiasis and ureteral calculi. COMPARISON: CT abdomen and pelvis 02/23/2018 TECHNIQUE: 4 spot fluoroscopic images of the right abdomen and pelvis were obtained utilizing 57.1 se conds of fluoroscopy time FINDINGS: Right-sided ureteroscope with guidewire and sheath. Subsequent images demonstrate deployment of a loyda ble pigtail right ureteral stent which appears to be in satisfactory positioning. Hardware about the right hemipelvis is partially imaged. IMPRESSION: Fluoroscopic assistance as above. Please see procedural report for further details. The above report was generated using voice recognition software. It may contain grammatical, syntax o r spelling errors. Electronically signed by: Syed Ward M.D. 02/24/2018 2:27 PM
[2018-02-24] MEDS: ASCORBIC ACID 500 MG TAB PO SCH (18:25)
[2018-02-24] MEDS: TAMSULOSIN HCL 0.4 MG CAP PO SCH (18:25)
--- NOTE | 2018-02-24 18:45 | Discharge Summary ---
Date of Service February 24, 2018 Admission HPI Per Admitting Provider 72-year-old male presents to emergency room complaining of a constant right flank pain beginning around 3 PM on 22Feb2018 (day prior to admit). Patient says he has a history of multiple prior kidney stones bilaterally, most recently this past fall which he thinks he passed spontaneously, and this feels similar. His initial pain of about 7/10 has since improved with Toradol given in the ED. He denies any nausea, vomiting, anterior abdominal pain, known fever or chills, or difficulty urinating. He sees Dr. Eid with urology and Dr. Tomlinson with nephrology. No other acute patient complaints. Principal Diagnosis nephrolitiaisis s/p cystoscopy, Right Ureteroscopy, Laser Lithotripsy and Right ureteral Stent Placement; Right Retrograde pyelography Surgeon: Saul Morris II Discharge Exam The pt called to request discharge after Chikis Dudlye FUR DRY CLEANER had rounded, I did complete the diacharge process to expediate the pt to leave, and the patient left prior to my visit. The nursing reported the pt was in no distress, did have hematuria and understands that he needs to drink plenty of fluid with close follow up with Dr Morris Discharge Data Allergies Allergy/AdvReac Type Severity Reaction Status Date / Time Sulfa (Sulfonamide Allergy Unknown BURNING Verified 02/23/18 03:34 Antibiotics) SENSATION IN GENITALIA AREA Consultations 02/23/18 04:02 ED Decision to Admit Stat 02/23/18 05:37 Consult Urology Routine Procedures Performed Operation Date: 02/24/18 12:05 Actual Procedures p Cystoscopy, Right Ureteroscopy, Laser Lithotripsy and Right ureteral Stent Placement; Right Retrograde pyelography(Right) - Saul Morris II, DO Ordered Studies 02/23/18 02:25 CT abd pelvis wo con Urgent 02/24/18 10:50 FL retrograde includes kub Routine Hospital Course (1) Ureterolithiasis: Known history of the same. - UA noted blood but otherwise not suggestive of an underlying infection. - CT a/p non-con showed a 9 mm stone in the right proximal ureter as well as mild right hydronephrosis and additional nonobstructing renal stones. - OR 02/24 for cystoscopy and lithotripsy, pt has no pain post procedure (2) Hydronephrosis concurrent with and due to calculi of kidney and ureter: see above (3) Hypertension: Continue home metoprolol, losartan (4) Hyperlipidemia: Continue home Lipitor (5) GERD (gastroesophageal reflux disease): Continue home Protonix (6) Diabetes mellitus: At home is on Tresiba 74 units at midnight (his normal dosing time) and NovoLog. (7) Chronic kidney disease: Admit Cr 2.28 which is baseline.chronic kidney disease type 3 (8) BPH (benign prostatic hyperplasia): s/p TURP, on Avodart Tamsulosin Rx (9) Glaucoma: Total Time Total Time Spent Total Time Spent (In Minutes): greater than 30 minutes were required to prepare discharge Discharge Plan Discharge Items Patient Disposition: Home - Self-Care Reason For Visit: RIGHT URETEROLITHIASIS & HYDRONEPHROSIS Discharge Diagnosis: kidney stone Discharge Goals: Decrease discomfort, Diagnostic testing and Improve disease control Activity: Resume your previous activity Non-emergency contact: Primary Care Provider and Urologist Call non-emergency contact if: you have any medication questions Follow-up/Referrals: Saul Morris II, DO [Physician] - Maik Rahman MD [Primary Care Provider] - Diet: Regular Addtl Provider Instructions: Please drink plenty of fluids use ibuprofen and or tylenol for pain you may call urology, Dr Morris, if you have any questions or problems Prescriptions: New tamsulosin 0.4 mg Capsule 0.4 mg PO HS Qty: 30 RF: 3 Continue travoprost [Travatan Z] 0.004 % Drops 1 drp OPHTHALMIC (EYE) PM RF: 0 insulin degludec [Tresiba FlexTouch U-100] 100 unit/mL (3 mL) Insulin Pen 74 units SUBCUT HS RF: 0 insulin aspart U-100 [Novolog Flexpen U-100 Insulin] 100 unit/mL Insulin Pen SUBCUT DIRECTED RF: 0 losartan 25 mg Tablet 25 mg PO QAM RF: 0 pantoprazole 40 mg Tablet,Delayed Release (Dr/Ec) 40 mg PO QAM RF: 0 sucralfate 1 gram Tablet 1,000 mg PO QID RF: 0 dutasteride [Avodart] 0.5 mg Capsule 0.5 mg PO QAM RF: 0 metoprolol tartrate 25 mg Tablet 25 mg PO BID RF: 0 atorvastatin 20 mg Tablet 20 mg PO QPM RF: 0 ferrous sulfate 325 mg (65 mg iron) Tablet 650 mg PO QAM RF: 0 ascorbic acid (vitamin C) [Vitamin C] 500 mg Tablet 500 mg PO QAM RF: 0 ergocalciferol (vitamin D2) [Vitamin D2] 50,000 unit Capsule 50,000 unit PO MONTHLY RF: 0 Visit Report Forms: [facility] Portal Stand-Alone Forms: [facility] Discharge Orders: Discharge Order (Routine); Ordered 02/24/18 Ordered By: Malcolm Owen Admission Data Admit Date/Time: 02/23/18 05:37 Attending Provider: Malcolm Owen Admit Provider: Syed Mart Primary Care Provider: Maik Rahman Other Providers: Ramon Fowler ; Jules Landon ; Saul Morris II Service: Surgical Services Other Interventions: Discharge Summary Assessment (RN) Last Done: 02/24/18 18:26
[2018-02-28] MEDS ORDERED: ERGOCALCIFEROL 50,000 UNITS CAP PO SCH (09:00)
[2018-03-05 07:49] LABS: Component 2 DNR
== END 2018-02-24 19:10 | disposition home or self-care (01) | DRG 661 ==
LOC: ED 02:03 → 3N 05:37 → SUATTDRO 05:37 → 3N 06:28

== ENCOUNTER 2019-08-04 06:52 | Observation (INO) ==
--- NOTE | 2019-07-16 16:05 | PAT Medication Instructions ---
Medication Instructions Date of Service July 16, 2019 Home Medications Medication Instructions Recorded pantoprazole 40 mg tablet,delayed 40 mg PO QAM #90 tab 12/26/18 release sucralfate 1 gram tablet 1,000 mg PO QID 90 Days #360 tab 12/26/18 pen needle, diabetic 32 gauge x #100 ea 01/26/19" FreeStyle Lite Strips #200 ea NS 03/12/19 metoprolol tartrate 25 mg tablet 25 mg PO BID #180 tab 03/30/19 Wheeled Walker #1 ea 04/30/19 atorvastatin 20 mg tablet 20 mg PO HS #30 tab 05/15/19 nystatin 100,000 unit/gram topical 1 appln TOP TID #30 gm 06/03/19 powder dutasteride 0.5 mg capsule 0.5 mg PO DAILY #90 cap 06/12/19 ergocalciferol (vitamin D2) 1,250 50,000 unit PO MONTHLY #3 cap 06/29/19 mcg (50,000 unit) capsule insulin degludec 100 unit/mL (3 74 unit SUBCUT HS #15 ml 07/13/19 mL) subcutaneous pen ondansetron 4 - 8 mg PO Q8H PRN #14 tab 07/16/19 oxycodone 5 - 10 mg PO Q6H PRN #12 tab 07/16/19 ascorbic acid (vitamin C) [Vitamin C] 500 mg PO QAM ferrous sulfate 650 mg PO QAM travoprost [Travatan Z] 1 drp OPB HS pantoprazole 40 mg tablet,delayed release 40 mg PO QAM sucralfate 1 gram tablet 1,000 mg PO QID metoprolol tartrate 25 mg tablet 25 mg PO BID insulin aspart U-100 100 unit/mL (3 mL) subcutaneous pen See Rx Instructions SUBCUT DAILY PRN atorvastatin 20 mg tablet 20 mg PO HS nystatin 100,000 unit/gram topical powder 1 appln TOP TID dutasteride 0.5 mg capsule 0.5 mg PO DAILY ergocalciferol (vitamin D2) 1,250 mcg (50,000 unit) capsule 50,000 unit PO MONTHLY insulin degludec 100 unit/mL (3 mL) subcutaneous pen 74 unit SUBCUT HS ondansetron 4 - 8 mg PO Q8H PRN oxycodone 5 - 10 mg PO Q6H PRN STOP taking 24 hours before surgery nystatin 100,000 unit/gram topical powder 1 appln TOP TID DO NOT take the morning of surgery ascorbic acid (vitamin C) [Vitamin C] 500 mg PO QAM ferrous sulfate 650 mg PO QAM sucralfate 1 gram tablet 1,000 mg PO QID insulin aspart U-100 100 unit/mL (3 mL) subcutaneous pen See Rx Instructions SUBCUT DAILY PRN ergocalciferol (vitamin D2) 1,250 mcg (50,000 unit) capsule 50,000 unit PO MONTHLY Take morning of surgery With a small sip of water, OTHERWISE NOTHING TO EAT OR DRINK AFTER MIDNIGHT: pantoprazole 40 mg tablet,delayed release 40 mg PO QAM metoprolol tartrate 25 mg tablet 25 mg PO BID dutasteride 0.5 mg capsule 0.5 mg PO DAILY ondansetron 4 - 8 mg PO Q8H PRN (if needed) oxycodone 5 - 10 mg PO Q6H PRN (okay to take up to 4 hours prior to surgery if needed) Take evening before surgery travoprost [Travatan Z] 1 drp OPB HS sucralfate 1 gram tablet 1,000 mg PO QID metoprolol tartrate 25 mg tablet 25 mg PO BID insulin aspart U-100 100 unit/mL (3 mL) subcutaneous pen See Rx Instructions SUBCUT DAILY PRN (if needed) atorvastatin 20 mg tablet 20 mg PO HS insulin degludec 100 unit/mL (3 mL) subcutaneous pen 74 unit SUBCUT HS ondansetron 4 - 8 mg PO Q8H PRN (if needed) oxycodone 5 - 10 mg PO Q6H PRN (if needed) Other Notes If you have any questions please call us at [phone] or [phone] or [phone] or [phone]
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
--- NOTE | 2019-07-23 11:53 | XRay Report ---
XR chest Pre-admission PA/Lat CLINICAL HISTORY: Preoperative evaluation. COMPARISON STUDY: Chest radiograph February 10, 2018. FINDINGS: Left shoulder arthroplasty is incidentally noted. Lung volumes are mildly diminished. This is unchanged. Linear left basilar opacity reflects atelectasis. No consolidation or evidence for pulm onary edema. Cardiomegaly is unchanged. There is no pneumothorax or pleural effusion. IMPRESSION: No acute findings. No change in appearance of the chest. ACT 112: Negative or not required by law. Electronically signed by: Pablo Owusu M.D. 07/23/2019 11:52 AM
[2019-07-23 12:28] LABS: Basophils # (auto) 0.03 K/uL (0-0.2); Basophils % (auto) 0.3 %; Eosinophils # (auto) 0.49 K/uL (0-0.5); Eosinophils % (auto) 5.2 %; Hematocrit (blood only) 38.8 % (42-52); Immature Granulocytes # (auto) 0.02 K/uL (0.00-0.02); Immature Granulocytes % (auto) 0.2 %; Lymphocytes # (auto) 1.45 K/uL (1.2-3.4); Lymphocytes % (auto) 15.4 %; Mean Corpuscular Hemoglobin 31.2 pg (25-34); Mean Corpuscular Hgb Conc 33.5 g/dL (32-36); Mean Platelet Volume 10.8 fL (7.4-10.4); Monocytes # (auto) 0.62 K/uL (0.11-0.59); Monocytes % (auto) 6.6 %; Neutrophils # (auto) 6.81 K/uL (1.4-6.5); Neutrophils % (auto) 72.3 %; Platelet Count 220 K/uL (130-400); RDW Coefficient of Variation 13.4 % (11.5-14.5); RDW Standard Deviation 45.7 fL (36.4-46.3); Red Blood Count 4.17 M/uL (4.7-6.1); White Blood Count 9.42 K/uL (4.8-10.8)
[2019-07-23 12:49] LABS: Partial Thromboplastin Time 27.8 Seconds (21.0-31.0); Prothrombin Time 10.4 Seconds (9.0-12.0)
[2019-07-23 12:55] LABS: C Reactive Protein 1.33 mg/dl (0-0.29); Creatinine Clr Calc Pharmacy 36.1 ml/min; Est GFR (African American) 28.8; Est GFR (Non-African American) 24.9; Potassium 5.5 mmol/L (3.5-5.1)
--- NOTE | 2019-08-01 12:40 | History and Physical Report ---
DATE OF ADMISSION: 08/04/2019 CHIEF COMPLAINT: Right hip pain and discomfort. HISTORY OF PRESENT ILLNESS: The patient is a 73-year-old gentleman who is referred to me by my partner, Dr. Rodríguez, for surgical treatment of his right hip. He has history of a right hip acetabular fracture treated by Dr. Boggs in [facility] in 05/2005. He did okay for about a year or so and then developed increasing right hip pain and discomfort that has gradually gotten worse over the past 10 years. He describes groin and thigh pain. The more he walks, the more it hurts. It is increased with weightbearing. He has pain constantly, but gets worse near the end of the day. He is having difficulty maintaining any degree of active lifestyle. Denies any major back problems. He now presents for surgical treatment. Of note, the patient did have a PE at the time of his acetabular fracture and was on Coumadin for 6 months. He has no known clotting disorder. PAST MEDICAL HISTORY: Significant for: 1. Pulmonary embolism in 2005. 2. Diabetes. 3. Chronic anemia. 4. Gastroesophageal reflux disease. 5. Hiatal hernia. 6. Obesity. 7. Kidney stones. 8. Stage III chronic kidney disease. PAST SURGICAL HISTORY: Previous surgeries include: 1. Right knee patellectomy years ago. 2. Right hip acetabular fracture in 2005. 3. Right hernia repair. 4. Left shoulder replacement done by Dr. Rodríguez. ALLERGIES: SULFA. CURRENT MEDICINES: 1. Vitamin C. 2. Iron sulfate. 3. Travatan eyedrops. 4. Pantoprazole 40 mg a day. 5. Sucralfate 1 gram 4 times a day. 6. Insulin. 7. Metoprolol 25 mg twice a day. 8. Atorvastatin 20 mg at bedtime. 9. Nystatin topical powder. 10. Dutasteride 0.5 mg once a day. 11. Vitamin D2. 12. Ondansetron p.r.n. 13. Furosemide 20 mg a day. SOCIAL HISTORY: ____ 73-year-old male. He is from [place]. He is . No significant alcohol intake. Does not smoke. FAMILY HISTORY: Noncontributory. REVIEW OF SYSTEMS: Significant for diabetes. Denies any current chest pain or shortness of breath. He did have this one PE back at time of his acetabular fracture. He has no known clotting disorder and not on any blood thinners. Denies any chest pain or shortness of breath. No history of dysuria. PHYSICAL EXAMINATION: GENERAL: Physical examination shows a pleasant, moderately obese middle-aged male. Looks to be in reasonably good health. HEENT: Benign. NECK: Supple, no lymphadenopathy. LUNGS: Clear to auscultation. HEART: Has a regular rate and rhythm. ABDOMEN: Soft, nontender, nondistended. EXTREMITIES: Grossly neurovascularly intact except as follows. Examination of the right hip and leg reveal the patient walks with an antalgic gait. He is about a 0.5 cm short on the right side than the left. He does have pain with any type of hip motion which recreates his groin and buttock pain. This pain is increased with internal rotation. Internal rotation is to about neutral. Negative straight leg raise. He is neurologically intact. Examination of the right knee reveals a well-healed incision. He is missing his patella. There is no knee effusion. X-RAYS: X-rays of the right hip show advanced right hip arthritis. He has got complete loss of his joint space and cystic changes on both sides of the joint. He had the evidence of previous acetabular ORIF with hardware in place. CT SCAN: CT scan was reviewed. It shows advanced right hip DJD. The hardware for the most part looks to be outside the acetabulum, although there are 2 screws that look fairly close ____. ASSESSMENT: A 73-year-old male, diabetic with history of other problems including underlying heart disease, chronic renal insufficiency, diabetes, chronic anemia, gastroesophageal reflux disease and kidney stones with advanced right hip degenerative joint disease after previous acetabular fracture ORIF. PLAN: We talked about treatment. He has been seen by both grey stock recorder and renal doctors. He would like to proceed with surgical treatment. We will certainly have to be careful due to his medical comorbidities as far as fluids and pain control. We are going to proceed with a right total hip replacement. We may have to remove some of the hardware depending of whether it is in the way. ____ universal hardware removal tray available. The risks and benefits of right total hip replacement were explained to the patient including but not limited to DVT, PE, , infection, neurological injury, vascular injury, bleeding problem, pain, limited range of motion, stiffness, failure to relieve symptoms, incomplete relief of symptoms, need for further surgery in future, fracture, leg length inequality, nerve palsy, etc. The patient understands and desires to proceed. Informed consent was obtained. I do think he is probably at increased risk for dislocation. We will probably try and antevert his cup a little bit more than usual. We will use Xarelto for DVT prophylaxis due to his kidney disease along with his history of PE in the past. He is planning to be discharged to home using the [facility].
[~2019-08-04 06:52] MED LIST changes: +ACETAMINOPHEN 500 MG TAB PO SCH; -ASCO1CAP3 PO; -ATOR-22 PO; +BUPIVACAINE 0.5 % 5 MG/1 ML PF 10ML VIAL ONE; +CEFAZOLIN 3000MG 72.5 ML IV SCH; -DUTA0.5C PO; -ERGO500037 PO; +FAMOTIDINE 20 MG TAB PO SCH; -FERR1TAB23 PO; +GABAPENTIN 300 MG CAP PO SCH; -INSU1.2I INJ; -LOSA1TAB PO; +LR 60ML/HR IV SCH; -METO25TA56 PO; +METOCLOPRAMIDE HCL 10 MG TABLET PO SCH; -NVLGI/PEN INJ; -PANT40TA PO; +SODIUM CHLORIDE 0.9% 1000ML IV SCH; -SUCR1TAB29 PO; +TRANEXAMIC ACID 1,000 MG **IV Pre-op IV SCH; -TRAV0.00 OP
[2019-08-04] MEDS ORDERED: fentaNYL citrate 100 MCG/2 ML VIAL ONE ×2 (07:30→10:06)
[2019-08-04] MEDS ORDERED: MIDAZOLAM HCL 1 MG/ML 2ML VIAL ONE (07:30)
[2019-08-04] MEDS ORDERED: ONDANSETRON INJ 2 MG/ML 2 ML VIAL ONE (08:21)
[2019-08-04] MEDS ORDERED: PROPOFOL IV EMULSION 10 MG/ML 20 ML VIAL IV ONE (08:21)
[2019-08-04] MEDS ORDERED: LIDOCAINE HCL 2% 2 ML VIAL/AMP(20MG/ML) INFIL ONE (08:21)
[2019-08-04] MEDS ORDERED: MoRPHine SULFATE PF 1 MG/ML 10 ML AMP/VIAL ONE (08:58)
[2019-08-04] MEDS ORDERED: BUPIVACAINE 0.5 % 5 MG/1 ML MPF 30ML VIAL ONE (08:59)
[2019-08-04] MEDS ORDERED: EPINEPHrine INJ 1 MG/ML AMP ONE (08:59)
[2019-08-04] MEDS ORDERED: BACITRACIN INJ 50,000 UNIT VIAL ONE (08:59)
--- NOTE | 2019-08-04 09:14 | History & Physical Bridge Note ---
Date of Service August 04, 2019 History & Physical Bridge Note I have examined the patient, reviewed the History & Physical and in the interval since the performance of the History & Physical I have noted the following changes of clinical significance: no changes noted
[2019-08-04] MEDS ORDERED: TRANEXAMIC ACID / 0.7% NACL 1000MG/100ML BAG IV ONE (09:16)
[2019-08-04] MEDS ORDERED: PHENYLEPHRINE 100MCG/ML 5ML SYR ONE (09:40)
[2019-08-04] MEDS ORDERED: ePHEDrine sulfate 50 MG/ML AMP IV PRN ×2 (10:15→12:51)
[2019-08-04] MEDS ORDERED: ATROPINE SULFATE 0.1 MG/ML 10ML SYR IV PRN (10:15)
[2019-08-04] MEDS ORDERED: ONDANSETRON INJ 2 MG/ML 2 ML VIAL IV PRN ×2 (10:15→12:51)
[2019-08-04] MEDS: fentaNYL citrate 100 MCG/2 ML VIAL IV PRN ×2 (11:28→11:39)
--- NOTE | 2019-08-04 11:33 | Operative Report ---
Post Operative Report Pre & Post Diagnosis Operation Date: 08/04/19 08:50 Pre-Op Diagnosis: Right Hip Advanced posttraumatic degenerative Joint Disease Post-Op Diagnosis: Right Hip Advanced post traumatic degenerative Joint Disease I identified the patient and participated in the time-out.: Yes Procedure Operation Date: 08/04/19 08:50 Actual Procedures p Right Total Hip Arthroplasty--Uncemented(Right) - Linwood Duckworth MD Surgeon Linwood Duckworth MD Stable Attendant Randal, PAC Estimated Blood Loss 300 Findings Consistent with Post-Op Diagnosis Findings revealed advanced right hip DJD. He had a very scarred and posterior hip joint capsule. He had a fairly poorly repaired IT band and gluteal fascia. He had a significant joint effusion with a grade 4 [id number] disease of the femoral head and acetabulum. Fluids 1500 cc. Specimens Right femoral head sent for pathology. Drains None. Anesthesia Type Spinal MAC Complications none Disposition Accompanied Patient To Recovery: Yes Disposition: Recovery Room Indications Patient is a 73-year-old fairly active gentleman is had a history of a right acetabular fracture dislocation treated with ORIF about 14 years ago. He did pretty well for the first several years but over the past couple years he developed increased pain discomfort and market inability to get around. He had pain and stiffness in the right hip. He failed all conservative treatment. X- rays show progressive right hip arthritis. Patient was medically optimized and proceeded to desire total hip arthroplasty. Description of Procedure Operative implants consist of: 1. Biomet size 58 mm G7 acetabular shell. 2. Biomet 6.5 cancellus acetabular screws 1 of 35 mm in length and 125 mm length # 3. [place] hole eliminator 4. Highly cross-linked polyethylene liner with a 40 mm inner diameter and 58 mm outer diameter. 5. [place] size 11 KLA femoral stem. 6. +5/40 mm ceramic articular ball. Patient was taken to the operating room identified and placed on the operating table supine position protectors were properly padded. IV antibiotics were provided by anesthesia team. A spinal anesthetic had been implemented in the holding area. A Martins catheter was placed in sterile fashion. Unfortunately the spinal is not set up so a general laryngeal mask anesthetic was implemented. The patient then placed in the left lateral decubitus position. An axillary roll was placed. A Stulberg positioner was used for positioning. The right hip and leg were then prepped and draped in usual sterile fashion. A posterior lateral approach to the right hip was then performed through the previous incision. This was a bit anterior but we used it to do the very close nature of the desired incision. Sharp dissection was gone through subcutaneous this down to the IT band gluteal fascia. The IT band gluteal fascia repair was fairly poor quality especially superiorly. I did not incise this. I then did spend some time dissecting the IT band off the vastus lateralis. The underlying greater trochanter bursa was then excised. The posterior capsule and external rotators were then taken off the posterior aspect of hip joint as a single sleeve. Great care was taken throughout the procedure protect sciatic nerve at all times. Hip was internally rotated and dislocated. Femoral neck osteotomy cut was made with Final Cut about 8 mm above the lesser trochanter. Femoral head was removed and sent for pathology. The femur was retracted anteriorly. Attention drawn the acetabulum. The acetabular labrum was excised per the pulmonary fat was excised. Sequential reaming the acetabular was then performed begin with a size 47 progressing up to 57. Great care was taken through the reaming process. I anticipated I may encounter several screws from the posterior acetabular fixation but we were able to place this cup and reamed without the entering or encountering any screws. A 58 mm Biomet G7 acetabular shell was then placed in about 40 degrees of lateral opening and 20 degrees of anteversion. It was fixed with two 6.5 cancellus acetabular screws. Trial liner was placed. Attention drawn the femur. The proximal femur was entered with a cookie-cutter followed by canal finder. Broaching was then begun beginning with a size 8 and progressing up to 11. We got pretty good fit at 11. We then trialed the hip and the +5 articular ball appeared to create appropriate soft tissue tension and provide full stability in full extension and external rotation and flexion to 90 degrees into rotation over [address] these implants. All trial implants were removed. An apex eliminator was placed. A highly cross-linked polyethylene liner was placed. A Jeanne KLA size 11 femoral stem was then impacted in position. +5/40 mm ceramic articular ball was placed. Hip was located and was found to be stable. Attention drawn toward closing. The wound was irrigated cups ounce pulsatile lavage solution. I did inject locally with 60 cc of half percent Marcaine with epinephrine. The posterior capsule and external rotators were repaired as a single layer through drill holes in the posterior trochanter with #2 Tycron suture. The IT band gluteal fascia then closed with a running #1 PDS suture. The subcutaneous tissues then closed with 2 layers the deep layer #1 Vicryl suture and subcutaneous tissues with 2-0 Dexon suture in a buried interrupted fashion. Skin was then closed with skin yenni. Leg was then cleaned dried a sterile dressing was Xeroform, 4 x 4's, sterile ABD pad and foam tape was applied. Patient then transferred to the recovery room in stable condition. Patient tolerated the procedure well there are no complications. I attest to the content of the Intraoperative Record and any orders documented therein. Any exceptions are noted below.
[2019-08-04] MEDS ORDERED: HYDROmorphone INJ 1 MG/ML SYRINGE ONE ×2 (12:02→12:22)
--- NOTE | 2019-08-04 12:02 | XRay Report ---
XR hip RT 2V w pelvis CLINICAL HISTORY: post op COMPARISON: CT scan dated 05/29/2019 DISCUSSION: Postsurgical changes are again evident within the right acetabulum and right inferior isc hial. There is now evidence for a total right hip arthroplasty. There is gas present within the soft tissues consistent with recent surgery. There are overlying skin yenni. There is no dislocation. IMPRESSION: Postsurgical changes of a total right hip arthroplasty. ACT 112: Negative or not required by law. Electronically signed by: Mor Saini M.D. 08/04/2019 12:01 PM
[2019-08-04] MEDS: HYDROmorphone INJ 0.5 MG/0.5 ML SYR IV PRN ×2 (12:23→12:30)
[2019-08-04] MEDS ORDERED: NALOXONE HCL 1 MG in SODIUM CHLORIDE 0.9% 1000ML 1,000 ML IV PRN (12:51)
[2019-08-04] MEDS ORDERED: LACTATED RINGER'S 500 ML IV PRN (12:51)
[2019-08-04] MEDS ORDERED: MoRPHine SULFATE PF 1 MG/ML 10 ML AMP/VIAL INT SPINAL ONE (12:51)
[2019-08-04] MEDS ORDERED: DiphenhydrAMINE HCL 50 MG/ML VIAL IV PRN (12:51)
[2019-08-04] MEDS ORDERED: NALOXONE HCL 0.4 MG/1 ML VIAL/CARP IV PRN ×2 (12:51→13:07)
[2019-08-04] MEDS ORDERED: NALOXONE HCL 0.08 MG in SYRINGE 1.8 ML IV PRN (12:51)
[2019-08-04] MEDS ORDERED: HYDROmorphone INJ 0.5 MG/0.5 ML SYR IV PRN ×2 (12:51→13:56)
[2019-08-04] MEDS ORDERED: NALBUPHINE HCL INJ 10 MG/ML AMP IV PRN (12:51)
--- NOTE | 2019-08-04 12:58 | Anesthesiology Progress Note ---
Date of Service August 04, 2019 Anesthesia Post Procedure Vital Signs Vital Signs: Temp Pulse Pulse Resp BP BP Pulse Ox 08/04/19 12:40 72 12 154/86 H 94 08/04/19 12:30 36.4 C L 75 12 128/81 95 08/04/19 12:20 71 12 140/81 94 08/04/19 12:10 74 12 131/86 94 08/04/19 12:00 75 12 156/89 H 96 08/04/19 11:50 75 14 151/84 H 96 08/04/19 11:40 72 14 154/89 H 95 08/04/19 11:30 80 12 156/83 H 97 08/04/19 11:20 75 15 152/93 H 97 08/04/19 11:12 36.2 C L 76 19 161/80 H 94 08/04/19 08:17 36.9 C 70 18 157/92 H 98 Pain Intensity Right Hip: Pain Intensity: 5 Transfer of Care Handoff Completed per policy Notes Mental Status: alert / awake / arousable and participated in evaluation Nausea / Vomiting: adequately controlled Pain: adequately controlled Airway Patency, RR, SpO2: stable & adequate BP & HR: stable & adequate Hydration State: stable & adequate Neuraxial Anesthesia: was administered and see Notes below Anesthetic Complications: no major complications apparent and Pt Satisfied with anesthetic care Notes: During spinal placement, I had good return of fluid, but fluid was noted to be slightly cloudy in appearance. Spinal never resulted in a detectable level and patient had to have a GA. Pt had significant pain in PACU - now improved after IV narcotics. Duramorph orders were placed, but the patient is ok to receive additional narcotics from the primary team since the spinal never set up for the patient.
[2019-08-04] MEDS ORDERED: SODIUM CHLORIDE 0.9% 1000ML 1,000 ML IV SCH (13:00)
[2019-08-04] MEDS ORDERED: NO NARCOTICS OR SEDATIVES SCH (13:00)
[2019-08-04] MEDS ORDERED: DC INTRASPINAL MORPHINE SCH (13:00)
[2019-08-04] MEDS ORDERED: GLUCOSE 10 TABS/TUBE PO PRN (13:07)
[2019-08-04] MEDS ORDERED: TAMSULOSIN HCL 0.4 MG CAP PO PRN (13:07)
[2019-08-04] MEDS ORDERED: NO NSAIDS SCH (13:07)
[2019-08-04] MEDS ORDERED: ALUMINUM/MAGNESIUM SUSP 30 ML UDC PO PRN (13:07)
[2019-08-04] MEDS ORDERED: MAGNESIUM HYDROXIDE SUSP 30 ML UDC PO PRN (13:07)
[2019-08-04] MEDS ORDERED: DEXTROSE 50% 50 ML SYRINGE IV PRN (13:07)
[2019-08-04] MEDS ORDERED: bisacodyL 10 MG SUPP PR PRN (13:07)
[2019-08-04] MEDS ORDERED: GLUCAGON FOR INJ 1 MG VIAL SQ PRN (13:07)
[2019-08-04] MEDS ORDERED: GLUCOSE 40% GEL 15 GM TUBE PO PRN (13:07)
[2019-08-04] MEDS ORDERED: INSULIN ASPART 100 UNITS/ML 3 ML PEN SQ PRN (13:07)
[2019-08-04] MEDS: SODIUM CHLORIDE 0.9% 1000ML 1,000 ML IV SCH ×2 (13:29→23:41)
[2019-08-04] MEDS ORDERED: PHARMACY GLYCEMIC MGMT CONSULT PRN (13:36)
[2019-08-04] MEDS ORDERED: METOCLOPRAMIDE HCL INJ 5 MG/ML 2 ML VIAL IV PRN (13:56)
--- NOTE | 2019-08-04 14:17 | Pharmacy Report ---
Glycemic Control Consultation - Date of Service August 04, 2019 - Scope Scope: Glycemic Pharmacist consulted for glycemic control and to write orders per [facility] inpatient glycemic control protocol. - Objective Weight: 123.604 kg Accuchecks BSG (last 24hrs): 08/04/19 08/04/19 08/04/19 07:29 11:18 13:30 POC Glucose 86 92 108 H - Recent Pertinent Medications Outpatient Anti-diabetic Regimen: * Tresiba 74 units SC HS * A1c = 7.7 % on 07/13/19 Risk Factors for Insulin Resistance: * Recent Surgery: POD 0 * Diet: T2DM - Assessment & Plan Assessment & Plan: ASSESSMENT: * 73 yo M with T2DM well controlled on outpatient regimen s/p R JESSICA * Reviewed prior glycemic note from 2019 admission w similar stressors * "Based on previous admissions, he typically requires less insulin as an inpt as compared to when he is at home" * During that admission, patient received 50 units of Lantus on POD 0 which resulted in an AM fasting BSG of 113 mg/dL. Will utilize similar dose this admission, but with parameter to increase for hyperglycemia * Will tighten the Novolog parameters as compared to previous 2nd noted post- prandial elevations in BSG. Will add two overnight checks. PLAN FOR INPATIENT GLYCEMIC CONTROL: * Basal insulin * Lantus 50 units SQ HS. Increase to 60 units if BSG > 180 mg/dL * Bolus insulin * NovoLog per scale ACHS or Q6hrs while NPO * Goal Range: Low 110 mg/dL - High 140 mg/dL * Correction Factor: 15 mg/dL/unit * Nutritional / Prandial insulin per carb ratio of 1 unit per 5 grams CHO consumed * Please note that the plan above was derived based on current level of insulin resistance and hospital stress. These recommendations are appropriate for inpatient admission only. Plan of care upon discharge will need to be reassessed to avoid potential outpatient hypo/hyperglycemia. Thank you.
[2019-08-04] MEDS: NYSTATIN POWDER 15GM BTL EXT SCH ×2 (14:54→21:30)
[2019-08-04] MEDS: SUCRALFATE 1 GM TAB PO SCH ×3 (14:54→21:45)
[2019-08-04] MEDS: ACETAMINOPHEN 500 MG TAB PO SCH ×2 (14:55→21:45)
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
[2019-08-04] MEDS ORDERED: TRANEXAMIC ACID / 0.7% NACL 1,000 MG/100 ML BAG IV SCH (17:30)
[2019-08-04] MEDS: INSULIN ASPART 100 UNITS/ML 3 ML PEN SC SCH ×3 (18:13→23:45)
[2019-08-04] MEDS: FERROUS GLUCONATE 324 MG TAB PO SCH (18:15)
[2019-08-04] MEDS: ONDANSETRON INJ 2 MG/ML 2 ML VIAL IV PRN (18:49)
[2019-08-04] MEDS: CEFAZOLIN 2000MG 2,000 MG/15 ML SYR IV SCH (18:54)
[2019-08-04] MEDS ORDERED: INSULIN DEGLUDEC 74 UNIT SQ SCH (21:00)
[2019-08-04] MEDS ORDERED: INSULIN GLARGINE SOLOSTAR 100 UNITS/ML 3 ML PEN SC SCH ×2 (21:00→21:45)
[2019-08-04] MEDS: SENNA 8.6 MG TAB PO SCH (21:29)
[2019-08-04] MEDS: TRAVOPROST Z 0.004% OPH SOLN 2.5 ML BTL OPB SCH (21:46)
[2019-08-04] MEDS: ATORVASTATIN 20 MG TAB PO SCH (21:46)
[2019-08-04] MEDS: DOCUSATE SODIUM 100 MG CAP PO SCH (21:46)
[2019-08-04] MEDS: METOPROLOL TARTRATE 25 MG TAB PO SCH (21:46)
[2019-08-04] MEDS: TRAMADOL HCL 50 MG TABLET PO PRN (23:39)
[2019-08-05] MEDS ORDERED: INSULIN GLARGINE SOLOSTAR 100 UNITS/ML 3 ML PEN SC SCH ×2 (00:30→21:00)
[2019-08-05] MEDS: CEFAZOLIN 2000MG 2,000 MG/15 ML SYR IV SCH (01:07)
[2019-08-05] MEDS ORDERED: INSULIN HUMAN REGULAR PER UNIT 6 UNITS in SYRINGE 5.94 ML IV ONE (04:15)
[2019-08-05] MEDS: INSULIN ASPART 100 UNITS/ML 3 ML PEN SC SCH ×5 (04:35→21:05)
[2019-08-05] MEDS: ACETAMINOPHEN 500 MG TAB PO SCH ×3 (05:08→21:04)
[2019-08-05] MEDS: TRAMADOL HCL 50 MG TABLET PO PRN (05:57)
[2019-08-05 06:20] LABS: Basophils # (auto) 0.04 K/uL (0-0.2); Basophils % (auto) 0.3 %; Eosinophils # (auto) 0.04 K/uL (0-0.5); Eosinophils % (auto) 0.3 %; Hematocrit (blood only) 35.5 % (42-52); Hemoglobin 11.6 g/dL (14.0-18.0); Immature Granulocytes # (auto) 0.03 K/uL (0.00-0.02); Immature Granulocytes % (auto) 0.2 %; Lymphocytes # (auto) 1.16 K/uL (1.2-3.4); Lymphocytes % (auto) 8.7 %; Mean Corpuscular Hemoglobin 31.3 pg (25-34); Mean Corpuscular Hgb Conc 32.7 g/dL (32-36); Mean Corpuscular Volume 95.7 fL (80-100); Mean Platelet Volume 10.7 fL (7.4-10.4); Monocytes # (auto) 1.36 K/uL (0.11-0.59); Monocytes % (auto) 10.2 %; Neutrophils # (auto) 10.65 K/uL (1.4-6.5); Neutrophils % (auto) 80.3 %; Platelet Count 213 K/uL (130-400); RDW Coefficient of Variation 13.5 % (11.5-14.5); RDW Standard Deviation 46.8 fL (36.4-46.3); Red Blood Count 3.71 M/uL (4.7-6.1); White Blood Count 13.28 K/uL (4.8-10.8)
[2019-08-05 06:53] LABS: BUN Creatinine Ratio 16.8 (10-20); Calcium 7.8 mg/dl (8.5-10.1); Creatinine Clr Calc Pharmacy 31.7 ml/min; Est GFR (African American) 24.9; Est GFR (Non-African American) 21.4; Potassium 4.4 mmol/L (3.5-5.1)
[2019-08-05] MEDS ORDERED: ONDANSETRON INJ 2 MG/ML 2 ML VIAL IV PRN (06:53)
[2019-08-05] MEDS ORDERED: HYDROmorphone INJ 0.5 MG/0.5 ML SYR IV PRN (06:53)
[2019-08-05] MEDS ORDERED: TRAMADOL HCL 50 MG TABLET PO PRN (06:53)
[2019-08-05] MEDS ORDERED: METOCLOPRAMIDE HCL INJ 5 MG/ML 2 ML VIAL IV PRN (06:53)
[2019-08-05] MEDS: SUCRALFATE 1 GM TAB PO SCH ×4 (07:34→20:04)
[2019-08-05] MEDS: FERROUS GLUCONATE 324 MG TAB PO SCH ×2 (07:35→16:32)
[2019-08-05] MEDS: ONDANSETRON INJ 2 MG/ML 2 ML VIAL IV PRN (07:47)
[2019-08-05] MEDS: METOPROLOL TARTRATE 25 MG TAB PO SCH ×2 (08:25→20:04)
[2019-08-05] MEDS: NYSTATIN POWDER 15GM BTL EXT SCH ×3 (08:25→20:05)
[2019-08-05] MEDS: ASCORBIC ACID 500 MG TAB PO SCH (08:25)
[2019-08-05] MEDS: PANTOprazole 40 MG TAB PO SCH (08:25)
[2019-08-05] MEDS: FUROSEMIDE 20 MG TAB PO SCH (08:25)
[2019-08-05] MEDS: MULTIVITAMIN TAB PO SCH (08:25)
[2019-08-05] MEDS: DOCUSATE SODIUM 100 MG CAP PO SCH ×2 (08:25→20:04)
--- NOTE | 2019-08-05 08:26 | Anesthesiology Progress Note ---
Date of Service August 05, 2019 Anesthesia Post Procedure Vital Signs Vital Signs: Temp Pulse Pulse Resp BP BP Pulse Ox 08/05/19 07:56 37.1 C 71 16 112/69 94 08/05/19 03:56 36.8 C 80 16 157/77 H 93 08/04/19 23:16 132/77 08/04/19 23:13 36.7 C 94 H 18 161/80 H 94 08/04/19 19:27 36.4 C L 97 H 20 149/67 H 94 08/04/19 15:02 36.3 C L 82 16 166/89 H 97 08/04/19 14:00 72 14 165/77 H 97 08/04/19 13:30 68 14 142/79 H 99 08/04/19 13:00 36.4 C L 68 14 167/77 H 91 08/04/19 12:40 72 12 154/86 H 94 08/04/19 12:30 36.4 C L 75 12 128/81 95 08/04/19 12:20 71 12 140/81 94 08/04/19 12:10 74 12 131/86 94 08/04/19 12:00 75 12 156/89 H 96 08/04/19 11:50 75 14 151/84 H 96 08/04/19 11:40 72 14 154/89 H 95 08/04/19 11:30 80 12 156/83 H 97 08/04/19 11:20 75 15 152/93 H 97 08/04/19 11:12 36.2 C L 76 19 161/80 H 94 Pain Intensity Right Hip: Pain Intensity: 8 Notes Mental Status: alert / awake / arousable and participated in evaluation Nausea / Vomiting: improving with treatment Pain: adequately controlled Airway Patency, RR, SpO2: stable & adequate BP & HR: stable & adequate Hydration State: stable & adequate Neuraxial Anesthesia: see Notes below (pt spinal failed; converted to general LMA) Anesthetic Complications: Pt Satisfied with anesthetic care
[2019-08-05] MEDS ORDERED: FERROUS SULFATE 650 MG PO SCH (09:00)
[2019-08-05] MEDS: CARBOHYDRATES FOR HYPOGLYCEMIA PO PRN ×2 (12:51→13:12)
[2019-08-05] MEDS: RIVAROXABAN 10 MG TABLET PO SCH (12:56)
--- NOTE | 2019-08-05 13:41 | Progress Notes ---
DATE: 08/05/2019 SUBJECTIVE: A 73-year-old gentleman with multiple medical comorbidities postoperative day 1 from a right total hip replacement. He is doing pretty well. Significant amount of pain with therapy, but in between times not too bad. No chest pain or shortness of breath. Not feeling dizzy or lightheaded. OBJECTIVE: VITAL SIGNS: Temperature 37.1. Vital signs stable. GENERAL: Shows a pleasant, middle-aged male. He is sitting up in his bed with his feet dangling over and looks quite comfortable. EXTREMITIES: Examination of the right hip reveals leg lengths to be equal. Hip is located. Dressing is clean, dry and intact. Thigh is soft and supple. He can dorsiflex and plantarflex his foot appropriately. LABORATORY DATA: Hemoglobin 11.6. Hematocrit 35.5. His electrolytes are stable. He has elevated creatinine, but he is at baseline. ASSESSMENT: 73-year-old gentleman postop day 1 from left total hip replacement. He has multiple medical comorbidities, but all appear to be stable. PLAN: 1. DVT prophylaxis including thigh-high TEDS, SCDs, and Xarelto for 1 month. 2. PT/OT. Weight bear as tolerated. Left total hip protocol. 3. Pain control, doing okay with current pain regimen. 4. Medical management as per the medicine service. 5. Disposition: Plan to discharge to home with some home health once medically stable and adequately recovered and pain controlled.
--- NOTE | 2019-08-05 13:53 | Pharmacy Report ---
Pharmacy Glycemic Short Note 2 - Date of Service August 05, 2019 - Glycemic Short BSG Results (Last 24 hours): 08/04/19 08/04/19 08/04/19 16:09 17:26 20:39 Glucose POC Glucose 91 92 115 H 08/04/19 08/04/19 08/05/19 21:51 23:43 03:58 Glucose POC Glucose 113 H 208 H 327 H* 08/05/19 08/05/19 08/05/19 04:02 04:08 05:43 Glucose 98 POC Glucose 288 H 283 H 08/05/19 08/05/19 08/05/19 08:17 12:47 13:06 Glucose POC Glucose 80 51 L* 48 L* 08/05/19 13:27 Glucose POC Glucose 94 ASSESSMENT: * 73 yo M with T2DM well controlled on outpatient regimen s/p R JESSICA * Reviewed prior glycemic note from 2019 admission w similar stressors * "Based on previous admissions, he typically requires less insulin as an inpt as compared to when he is at home" * During that admission, patient received 50 units of Lantus on POD 0 which resulted in an AM fasting BSG of 113 mg/dL. Will utilize similar dose this admission, but with parameter to increase for hyperglycemia * Will tighten the Novolog parameters as compared to previous 2nd noted post- prandial elevations in BSG. Will add two overnight checks. 08/04: * Patient received total of 55 units of insulin yesterday, of which 50 were basal insulin * Patient snacking overnight - IV insulin given this AM for elevated BSG / however BSGs dropping very quickly * Despite no novolog given at lunch, BSGs still trending down at lunch time to 51 mg/dL - nurse tx per hypoglycemia protocol / on recheck 94 * Nurse states patient reports multiple low BSGs at home and that his po intake is very limited currently * Decrease basal insulin / loosen CF and CR today PLAN FOR INPATIENT GLYCEMIC CONTROL: * Basal insulin * Lantus 30-40 units with HS based upon scale * Bolus insulin * NovoLog per scale ACHS or Q6hrs while NPO * Goal Range: Low 110 mg/dL - High 140 mg/dL * Correction Factor: 20 mg/dL/unit * Nutritional / Prandial insulin per carb ratio of 1 unit per 7 grams CHO consumed * Please note that the plan above was derived based on current level of insulin resistance and hospital stress. These recommendations are appropriate for inpatient admission only. Plan of care upon discharge will need to be reassessed to avoid potential outpatient hypo/hyperglycemia. Thank you.
--- NOTE | 2019-08-05 14:28 | Hospitalist Progress Note ---
Date of Service August 05, 2019 Assessment & Plan (1) Post-operative state: S/p JESSICA DVT proph, pain control per primary Monitor for acute blood loss (2) Hyperlipidemia: Continue home statin (3) GERD (gastroesophageal reflux disease): Continue pantoprazole (4) Diabetes mellitus, type II: Consult pharmacy for glycemic management BSGs somewhat labile following surgery (5) BPH (benign prostatic hyperplasia): Continue dutasteride (6) Chronic kidney disease, stage III (moderate): Baseline 2-2.4. Avoid nephrotoxins where possible 2.8 on 07/30 and again today (7) Anemia: Anemia of chronic disease Baseline hgb around 13 (8) Acute blood loss anemia: Hgb decreased by about 1.5 from baseline following surgery (9) Hypertension: Continue home metoprolol, furosemide BPs controlled Medicine will sign off at this time. Please call with any questions or concerns Admission and Anticipated Discharge Date Admission Date: August 04, 2019 Subjective Mr. Halls pain is under better control today. He is still somewhat nauseas but otherwise has no complaints. ROS Constitutional: no chills, aches, sweats or fever Respiratory: no sob,cough, sputum, or wheezing Cardiac: no chest pain, palpitations, edema, orthopnea or lightheadedness GI: no abdominal pain, vomiting, diarrhea or constipation : no dysuria or hesitancy Extremities: no joint pain or weakness Skin: no rash All other systems reviewed and negative Physical Exam Physical Exam: General: no distress Eyes: normal inspection, PERLL Respiratory: chest non tender, clear to auscultation, normal breath sounds, no respiratory distress, no accessory muscle use Cardiac: regular rate and rhythm, no rub or gallop, no murmur, no edema, no jvd GI/: active bowel sounds, no abd pain or tenderness, soft, non distended Extremities: normal range of motion, normal strength, non tender Neuro/Psych: alert and oriented x 3, normal mood and affect Skin: normal color, dry Results & Data Results & Data ([facility]) Vital Signs (Past 12 Hours) Vital Signs Temp Pulse Resp BP BP Pulse Ox 08/05/19 07:56 37.1 C 71 16 112/69 94 08/05/19 03:56 36.8 C 80 16 157/77 H 93 PG Care Time/CCT Total # of Minutes Spent Total Time Spent with Patient: Total time spent is greater than 50% in coordination of care (as documented) at patient's floor/unit and/or counseling patient: Coding Level of Care Code 94110 Subseq Hosp Care Lvl 2 Diagnoses Post-operative state Z98.890 Hyperlipidemia E78.5 GERD (gastroesophageal reflux disease) K21.9 Diabetes mellitus, type II E11.9 BPH (benign prostatic hyperplasia) N40.0 Chronic kidney disease, stage III (moderate) N18.3 Anemia D64.9 Acute blood loss anemia D62 Hypertension I10 Hypertension type: essential hypertension (1) Hypertension Hypertension type: essential hypertension Qualified Code(s): I10 - Essential (primary) hypertension
[2019-08-05] MEDS: SENNA 8.6 MG TAB PO SCH (20:04)
[2019-08-05] MEDS: ATORVASTATIN 20 MG TAB PO SCH (20:04)
[2019-08-05] MEDS: TRAVOPROST Z 0.004% OPH SOLN 2.5 ML BTL OPB SCH (20:04)
[2019-08-05] MEDS ORDERED: INSULIN GLARGINE SOLOSTAR 100 UNITS/ML 3 ML PEN SC ONE (21:00)
[2019-08-06] MEDS ORDERED: INSULIN ASPART 100 UNITS/ML 3 ML PEN SC SCH
[2019-08-06] MEDS: ACETAMINOPHEN 500 MG TAB PO SCH (05:12)
[2019-08-06] MEDS: METOPROLOL TARTRATE 25 MG TAB PO SCH (07:32)
[2019-08-06] MEDS: MULTIVITAMIN TAB PO SCH (07:32)
[2019-08-06] MEDS: ASCORBIC ACID 500 MG TAB PO SCH (07:32)
[2019-08-06] MEDS: SUCRALFATE 1 GM TAB PO SCH (07:32)
[2019-08-06] MEDS: FERROUS GLUCONATE 324 MG TAB PO SCH (07:32)
[2019-08-06] MEDS: PANTOprazole 40 MG TAB PO SCH (07:32)
[2019-08-06] MEDS: DOCUSATE SODIUM 100 MG CAP PO SCH (07:33)
[2019-08-06] MEDS: FUROSEMIDE 20 MG TAB PO SCH (07:33)
[2019-08-06] MEDS: RIVAROXABAN 10 MG TABLET PO SCH (07:33)
[2019-08-06] MEDS: NYSTATIN POWDER 15GM BTL EXT SCH (07:33)
--- NOTE | 2019-08-06 07:33 | Progress Notes ---
DATE: 08/06/2019 SUBJECTIVE: A 73-year-old gentleman postop day 2 from right total hip replacement. He is doing well. Therapy has gone well. Pain is controlled. Denies any chest pain or shortness of breath. Not feeling dizzy or lightheaded. OBJECTIVE: VITAL SIGNS: Temperature is 37.4. Vital signs stable. GENERAL: Shows a pleasant elderly male. He is sitting up in his bedside chair, looks completely comfortable. EXTREMITIES: Examination of the right hip and leg reveals the leg lengths are equal. Dressing is clean, dry and intact. Thigh is soft and supple. His hip is located. He is neurologically intact. ASSESSMENT: A 73-year-old gentleman with multiple medical comorbidities postoperative day 2 from right hip replacement, doing quite well. His pain is controlled. Hip is located. He is neurologically intact. PLAN: 1. DVT prophylaxis including thigh-high TEDs, SCDs, and Xarelto for 1 month. 2. PT/OT. He can weightbear as tolerated. Right total hip protocol. 3. Pain control, doing pretty well with current pain regimen. 4. Disposition: Plan to discharge to home with some home health later today.
[2019-08-06] MEDS: INSULIN ASPART 100 UNITS/ML 3 ML PEN SC SCH (08:54)
[2019-08-06] MEDS ORDERED: INSULIN GLARGINE SOLOSTAR 100 UNITS/ML 3 ML PEN SC ONE (09:00)
--- NOTE | 2019-08-10 15:51 | Discharge Summary ---
Date of Service August 10, 2019 Admission HPI Per Admitting Provider See admission H&P Admission Exam (Per Admitting) Constitutional Documented in the admission H&P Discharge Data Consultations 08/04/19 13:07 Consult Internal Medicine Routine 08/05/19 08:00 Consult Case Management - Discharge Planning Routine Procedures Performed Operation Date: 08/04/19 08:50 Actual Procedures p Right Total Hip Arthroplasty--Uncemented(Right) - Linwood Duckworth MD Hospital Course (1) Status post total hip replacement, right: 73-year-old male admitted on 08/04/2019 underwent right total hip arthroplasty. He tolerated the procedure well. There were no complications. He was transferred to the PACU postoperatively and later to the orthopedic for further care. He was given Ancef for antibiotic prophylaxis. DEREJE stockings, SCDs, and Xarelto for DVT prophylaxis. His hemoglobin, hematocrit, and vital signs were monitored during his hospital stay remained stable. He did not require blood transfusions. There were no complications. By postoperative day 2 he is tolerating a diabetic diet, pain was controlled with oral pain medicine, is participating in physical therapy. Postop day 2 was discharged home. He was given printed discharge instructions as well as new prescriptions for extra strength Tylenol, tramadol, and Xarelto. Continue DEREJE stockings. Continue physical therapy. He is weightbearing as tolerated. Continue total hip precautions. Follow-up in approximately 2 weeks postop or sooner if any problems or concerns. Coding Level of Care Code None Diagnoses Status post total hip replacement, right Z96.641
[2019-08-26] MEDS ORDERED: ERGOCALCIFEROL 50,000 UNITS CAP PO SCH (09:00)
== END 2019-08-06 11:17 | disposition home or self-care (01) ==
LOC: ASU 06:52 → 3E 06:52

== ENCOUNTER 2019-08-23 10:28 | Observation (INO) ==
[2019-08-23] MEDS ORDERED: ONDANSETRON INJ 2 MG/ML 2 ML VIAL IV STA (10:44)
[2019-08-23] MEDS ORDERED: HYDROmorphone INJ 0.5 MG/0.5 ML SYR IV STA (10:44)
[2019-08-23] MEDS ORDERED: SODIUM CHLORIDE 0.9% 500 ML IV SCH (10:45)
[2019-08-23 11:16] LABS: Basophils # (auto) 0.03 K/uL (0-0.2); Basophils % (auto) 0.3 %; Eosinophils # (auto) 0.41 K/uL (0-0.5); Eosinophils % (auto) 3.6 %; Hematocrit (blood only) 33.8 % (42-52); Hemoglobin 11.5 g/dL (14.0-18.0); Immature Granulocytes # (auto) 0.01 K/uL (0.00-0.02); Immature Granulocytes % (auto) 0.1 %; Lymphocytes % (auto) 8.8 %; Mean Corpuscular Hemoglobin 30.8 pg (25-34); Mean Corpuscular Volume 90.6 fL (80-100); Mean Platelet Volume 10.1 fL (7.4-10.4); Monocytes # (auto) 0.85 K/uL (0.11-0.59); Monocytes % (auto) 7.5 %; Neutrophils # (auto) 9.08 K/uL (1.4-6.5); Neutrophils % (auto) 79.7 %; Platelet Count 303 K/uL (130-400); RDW Coefficient of Variation 12.6 % (11.5-14.5); Red Blood Count 3.73 M/uL (4.7-6.1); White Blood Count 11.38 K/uL (4.8-10.8)
[2019-08-23 11:42] LABS: Albumin Level 2.7 gm/dl (3.4-5.0); BUN Creatinine Ratio 14.5 (10-20); Creatinine Clr Calc Pharmacy 25.9 ml/min; Est GFR (African American) 19.2; Est GFR (Non-African American) 16.6; Potassium 4.4 mmol/L (3.5-5.1)
[2019-08-23 11:44] LABS: Albumin Globulin Ratio 0.6 (0.9-2); Bilirubin,Total 0.5 mg/dl (0.2-1); Globulin 4.5 gm/dl (2.5-4.0); Total Protein 7.2 gm/dl (6.4-8.2)
--- NOTE | 2019-08-23 11:52 | CT Scan Report ---
ABDOMEN AND PELVIS CT WITHOUT CONTRAST CT DOSE: 1942.61 mGy.cm HISTORY: L flank pain TECHNIQUE: Multiaxial CT images of the abdomen and pelvis were performed without contrast. A dose lo wering technique was utilized adhering to the principles of ALARA. COMPARISON STUDY: Abdomen and pelvis CT 02/01/2019. FINDINGS: A few bibasilar linear densities consistent with subsegmental atelectasis. No pneumoperiton eum. No pneumatosis. Prior right total arthroplasty and additional postoperative changes within the r ight acetabulum. No suspicious lytic are blastic osseous lesions. The heart remains mildly enlarged. The unenhanced liver, spleen, adrenal glands, and pancreas are unremarkable. Cholelithiasis. No gallb ladder wall thickening. No retroperitoneal or pelvic lymphadenopathy. The prostate gland is normal in size. Small fat-containing left inguinal hernia. Postoperative changes from prior right inguinal her stephanie repair. Normal caliber abdominal aorta. 5 mm stone within the lower pole the right kidney. Stable bilateral renal hypodense lesions. These are incompletely characterized on this noncontrast study. L eft perinephric fat stranding/edema. There are 2 stones within the lower pole the left kidney with th e largest measuring 6 mm. There is mild left hydroureteronephrosis secondary to an obstructing 5 mm s tone within the distal left ureter best in image 407. This is approximately 2 cm proximal to the uret erovesical junction. Normal bladder. Suboptimal evaluation for bowel pathology due to the lack of int ravenous and oral contrast. However, there is no definite bowel wall thickening or obstruction. Colon ic diverticulosis. No evidence for acute diverticulitis. Normal appendix. A 4 cm diverticulum at the third portion of the duodenum. Mild fullness within the pancreatic head remains unchanged. IMPRESSION: 1. There is a 5 mm obstructing stone within the distal left ureter resulting in mild left hydroureter onephrosis. 2. Bilateral nephrolithiasis. 3. Cholelithiasis. 4. No bowel wall thickening or obstruction. 5. Colonic diverticulosis. 6. Additional findings as described above. ACT 112: Negative or not required by law. Electronically signed by: Nasim Sanchez M.D. 08/23/2019 11:51 AM
[2019-08-23 11:59] LABS: Appearance Urine Clear (Clear); Bacteria Urine Automated Negative (Negative); Bilirubin Urine Negative (Negative); Blood Urine 2+ (Negative); Color Urine Yellow; Glucose Urine UA Trace (Negative); Ketones Urine Negative (Negative); Leukocyte Esterase Urine Negative (Negative); Nitrite Urine Negative (Negative); Protein Urine 2+ (Negative); Specific Gravity Urine 1.013 (1.000-1.030); Urobilinogen Urine Negative (Negative)
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
[2019-08-23] MEDS ORDERED: HYDROmorphone INJ 0.5 MG/0.5 ML SYR IV PRN (13:12)
[2019-08-23] MEDS: LACTATED RINGER'S 1,000 ML IV SCH ×2 (13:13→21:40)
[2019-08-23] MEDS ORDERED: ALUMINUM/MAGNESIUM SUSP 30 ML UDC PO PRN (13:56)
[2019-08-23] MEDS ORDERED: MAGNESIUM HYDROXIDE SUSP 30 ML UDC PO PRN (13:56)
[2019-08-23] MEDS ORDERED: GLUCOSE 10 TABS/TUBE PO PRN (13:56)
[2019-08-23] MEDS ORDERED: ONDANSETRON INJ 2 MG/ML 2 ML VIAL IV PRN (13:56)
[2019-08-23] MEDS ORDERED: POLYETHYLENE (MIRALAX) 17 GM PACK PO PRN (13:56)
[2019-08-23] MEDS ORDERED: CARBOHYDRATES FOR HYPOGLYCEMIA PO PRN (13:56)
[2019-08-23] MEDS ORDERED: DEXTROSE 50% 50 ML SYRINGE IV PRN (13:56)
[2019-08-23] MEDS ORDERED: GLUCAGON FOR INJ 1 MG VIAL SQ PRN (13:56)
[2019-08-23] MEDS ORDERED: GLUCOSE 40% GEL 15 GM TUBE PO PRN (13:56)
[2019-08-23] MEDS ORDERED: ACETAMINOPHEN 325 MG TAB PO PRN (13:56)
[2019-08-23] MEDS: NYSTATIN POWDER 15GM BTL EXT SCH ×2 (15:20→20:08)
[2019-08-23] MEDS: SUCRALFATE 1 GM TAB PO SCH ×2 (16:24→20:07)
[2019-08-23] MEDS ORDERED: fentaNYL citrate 100 MCG/2 ML VIAL ONE (17:11)
[2019-08-23] MEDS ORDERED: PROPOFOL IV EMULSION 10 MG/ML 20 ML VIAL IV ONE (17:11)
[2019-08-23] MEDS ORDERED: GLYCOPYRROLATE 0.2 MG/ML VIAL ONE (17:11)
--- NOTE | 2019-08-23 17:24 | Urology Consultation ---
Date of Consultation August 23, 2019 Assessment & Plan (1) Ureterolithiasis: Distal left ureteral stone. 5mm. [place] and SERENE. Persistent pain. Plan to take to OR tonight for Cysto, Uscope, Laser litho, and stent. Trend Cr tomorrow to confirm improvement of renal fx. (2) Chronic kidney disease, stage III (moderate): History of Present Illness Attending Physician: Bebo Galvan MD 73 y/o male with a hx of kidney stones, began having pain last night. Left side. /10. Flank radiating to groin. No hem. No dys. Occ nausea. No fevers. No chills. The pain persisted. He then came to ER. CT scan performed which showed a 5mm stone in the distal left ureter with hydro. Cr elevated to 3.4, up from baseline of 2.7. Due to pain and SERENE, he was admitted with urology consultation for possible stent placement. He has a hx of stones. He states that the pain he was feeling is similar compared to previous stones. Allergies Allergy/AdvReac Type Severity Reaction Status Date / Time Sulfa (Sulfonamide Allergy Intermediate genital Verified 08/23/19 11:38 Antibiotics) area burning sensation doxycycline Allergy Unknown per records Verified 08/23/19 11:38 Home Medications Home Medications Medication Instructions Recorded Confirmed Type ascorbic acid (vitamin C) [Vitamin 500 mg PO QAM 10/29/17 08/23/19 History C] ferrous sulfate 650 mg PO QAM 10/29/17 08/23/19 History travoprost [Travatan Z] 1 drp OPB HS 01/30/18 08/23/19 History pantoprazole 40 mg tablet,delayed 40 mg PO QAM #90 tab 12/26/18 08/23/19 Rx release pen needle, diabetic 32 gauge x #100 ea 01/26/19 07/22/19 Rx 5/32" FreeStyle Lite Strips #200 ea NS 03/12/19 07/22/19 Rx metoprolol tartrate 25 mg tablet 25 mg PO BID #180 tab 03/30/19 08/23/19 Rx insulin aspart U-100 100 unit/mL See Rx Instructions SUBCUT DAILY 04/22/19 08/23/19 History (3 mL) subcutaneous pen PRN ml Wheeled Walker #1 ea 04/30/19 07/22/19 Rx atorvastatin 20 mg tablet 20 mg PO HS #30 tab 05/15/19 08/23/19 Rx nystatin 100,000 unit/gram topical 1 appln TOP TID #30 gm 06/03/19 08/23/19 Rx powder ergocalciferol (vitamin D2) 1,250 50,000 unit PO MONTHLY #3 cap 06/29/19 08/23/19 Rx mcg (50,000 unit) capsule sucralfate 1 gram tablet 1,000 mg PO QID 90 Days #360 tab 08/03/19 08/23/19 Rx tramadol 50 - 100 mg PO Q6H PRN #30 tab 08/05/19 08/23/19 Rx cephalexin 500 mg capsule 500 mg PO Q6 10 Days #40 cap 08/10/19 08/23/19 Rx miscellaneous medical supply #1 ea 08/19/19 08/19/19 Rx acetaminophen 1,000 mg PO Q8 PRN 08/23/19 08/23/19 History dutasteride [Avodart] 0.5 mg PO QAM 08/23/19 08/23/19 History furosemide 20 mg PO QAM 08/23/19 08/23/19 History insulin degludec 70 unit SUBCUT HS 08/23/19 08/23/19 History rivaroxaban [Xarelto] 10 mg PO QDD 08/23/19 08/23/19 History Patient History Social History Preferred Language: Tristanian Communication Ability: Effective Visual Impairment: No Limitations Hearing Ability: Normal Assembler Tractor Required: No Beliefs That Will Affect Care: None marital status: Current Living Situation: Spouse current occupational status: retired Other Information That Helps Us Care for You: No Feels Safe at Home: Yes Safety Concerns: Feels Safe At This Time Smoking Status: Never smoker Second Hand Exposure: No ; Hx Alcohol Use: Yes Alcohol type: beer Alcohol Intake Frequency: Holidays/Special Occasions Alcohol Intake Frequency Comment: Socially Hx Substance Use: No Childhood Exposure to Second-Hand Smoke: No caffeine: Yes Dental Care, Regularly: Yes Physical Activity Frequency: 1-2 Times per Week Seatbelt Use: always Sunscreen Use: No Review of Systems Review of Systems: All systems reviewed & are unremarkable except as noted in HPI & below Physical Exam Constitutional: WD/WN, vitals as above Eyes: PERRL, conjunctivae normal, anicteric sclerae ENMT: external ear and nose normal, oropharynx normal Neck: trachea midline, no thyromegaly Respiratory: normal respiratory effort, lungs clear to auscultation Cardiovascular: RRR, no murmur, no edema Gastrointestinal (Abdomen): normal bowel sounds, soft, nontender, no hepatosplenomegaly Musculoskeletal: no cyanosis or clubbing, extremities motor strength 5/5 Neurologic: patellar DTR's 2+ bilat, sensation intact Genitourinary: + CVA tenderness Lymphatic: no cervical or axillary lymphadenopathy Results & Data Vital Signs (Past 12 Hours) Vital Signs Temp Pulse Pulse Pulse Resp BP BP 08/23/19 15:40 36.8 C 97 H 18 167/97 H 08/23/19 15:00 156/79 H 08/23/19 14:00 99 H 16 167/102 H 08/23/19 13:01 96 H 17 08/23/19 13:00 97 H 17 182/100 H 08/23/19 12:31 98 H 18 08/23/19 12:30 96 H 19 165/96 H 08/23/19 12:01 100 H 22 08/23/19 12:00 98 H 21 167/90 H 08/23/19 11:49 106 H 08/23/19 11:15 103 H 23 08/23/19 11:10 102 H 19 166/90 H 08/23/19 10:36 37.2 C 110 H 22 202/82 H Pulse Ox 08/23/19 15:40 97 08/23/19 15:00 08/23/19 14:00 96 08/23/19 13:01 97 08/23/19 13:00 97 08/23/19 12:31 96 08/23/19 12:30 95 08/23/19 12:01 95 08/23/19 12:00 95 08/23/19 11:49 95 08/23/19 11:15 92 08/23/19 11:10 93 08/23/19 10:36 97
[2019-08-23] MEDS ORDERED: IOTHALAMATE MEGLUMINE II 17.2% 250 ML VIAL ONE (17:28)
[2019-08-23] MEDS: INSULIN ASPART 100 UNITS/ML 3 ML PEN SC SCH ×2 (17:28→21:09)
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
[2019-08-23] MEDS ORDERED: LIDOCAINE HCL 2% 2 ML VIAL/AMP(20MG/ML) INFIL ONE (17:56)
[2019-08-23] MEDS ORDERED: CEFAZOLIN 250 MG/ML 1 GM VIAL ONE (17:56)
[2019-08-23] MEDS ORDERED: CEFAZOLIN 1000MG 1,000 MG/7.5 ML SYR IV ONE (18:01)
--- NOTE | 2019-08-23 18:17 | Post Operative Brief Note ---
Immediate Post Op Note v1 Date of Surgery August 23, 2019 Pre & Post Diagnosis Operation Date: 08/23/19 17:30 Pre-Op Diagnosis: URETEROLITHIASIS Post-Op Diagnosis: URETEROLITHIASIS I identified the patient and participated in the time-out.: Yes Procedure Operation Date: 08/23/19 17:30 Actual Procedures p Cystoscopy, Laser Lithotripsy Holmium, Basket Stone Extraction, Stent Placement(Left) - Malcolm Pereira MD Surgeon Malcolm Pereira MD Cadd Manager none Estimated Blood Loss 0 Findings Consistent with Post-Op Diagnosis
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
--- NOTE | 2019-08-23 19:03 | Fluoroscopy Report ---
FL KUB CLINICAL HISTORY: LT CYSTO/STENT PLACEMENT COMPARISON STUDY: Abdomen and pelvis CT 08/23/2019. FLUOROSCOPY TIME: 13 seconds. FINDINGS: 4 fluoroscopic spot images demonstrate a left ureteral stent which appears in position. IMPRESSION: Fluoroscopy provided for left ureteral stent placement which appears in good position. ACT 112: Negative or not required by law. Electronically signed by: Nasim Sanchez M.D. 08/23/2019 7:02 PM
[2019-08-23] MEDS ORDERED: ACETAMINOPHEN 500 MG TAB PO PRN (19:07)
[2019-08-23] MEDS ORDERED: INSULIN ASPART 100 UNITS/ML 3 ML PEN SQ PRN (19:07)
--- NOTE | 2019-08-23 19:53 | Anesthesiology Progress Note ---
Date of Service August 23, 2019 Anesthesia Post Procedure Vital Signs Vital Signs: Temp Pulse Pulse Pulse Pulse Resp BP 08/23/19 19:35 36.4 C L 90 18 08/23/19 19:23 36.4 C L 103 H 20 08/23/19 18:55 36.4 C L 88 14 08/23/19 18:46 36.0 C L 99 H 13 08/23/19 15:40 36.8 C 97 H 18 08/23/19 15:00 08/23/19 14:00 99 H 16 08/23/19 13:01 96 H 17 08/23/19 13:00 97 H 17 182/100 H 08/23/19 12:31 98 H 18 08/23/19 12:30 96 H 19 165/96 H 08/23/19 12:01 100 H 22 08/23/19 12:00 98 H 21 167/90 H 08/23/19 11:49 106 H 08/23/19 11:15 103 H 23 08/23/19 11:10 102 H 19 166/90 H 08/23/19 10:36 37.2 C 110 H 22 202/82 H BP Pulse Ox 08/23/19 19:35 170/92 H 97 08/23/19 19:23 169/91 H 96 08/23/19 18:55 158/83 H 97 08/23/19 18:46 166/83 H 95 08/23/19 15:40 167/97 H 97 08/23/19 15:00 156/79 H 08/23/19 14:00 167/102 H 96 08/23/19 13:01 97 08/23/19 13:00 97 08/23/19 12:31 96 08/23/19 12:30 95 08/23/19 12:01 95 08/23/19 12:00 95 08/23/19 11:49 95 08/23/19 11:15 92 08/23/19 11:10 93 08/23/19 10:36 97 Pain Intensity Left Flank: Pain Intensity: 4 Transfer of Care Handoff Completed per policy Notes Mental Status: alert / awake / arousable and participated in evaluation Patient Amnestic to Procedure: Yes Nausea / Vomiting: adequately controlled Pain: adequately controlled Airway Patency, RR, SpO2: stable & adequate BP & HR: stable & adequate Hydration State: stable & adequate Anesthetic Complications: no major complications apparent and Pt Satisfied with anesthetic care
[2019-08-23] MEDS: METOPROLOL TARTRATE 25 MG TAB PO SCH (20:07)
[2019-08-23] MEDS ORDERED: TRAVOPROST Z 0.004% OPH SOLN 2.5 ML BTL OPB SCH (21:00)
[2019-08-23] MEDS ORDERED: ATORVASTATIN 20 MG TAB PO SCH (21:00)
[2019-08-23] MEDS ORDERED: INSULIN DEGLUDEC 70 UNIT SQ SCH (21:00)
[2019-08-23] MEDS ORDERED: TAMSULOSIN HCL 0.4 MG CAP PO SCH (21:00)
[2019-08-23] MEDS ORDERED: INSULIN GLARGINE SOLOSTAR 100 UNITS/ML 3 ML PEN SC SCH (21:00)
--- NOTE | 2019-08-24 01:44 | Operative Report (OR) ---
DATE OF OPERATION: 08/23/2019 SURGEON: Malcolm Pereira MD COST ACCOUNTING ANALYST: None. PREOPERATIVE DIAGNOSIS: Left ureteral calculus. POSTOPERATIVE DIAGNOSIS: Left ureteral calculus. PROCEDURE: Cystoscopy, left retrograde pyelogram, left ureteroscopy, laser lithotripsy, stone basket extraction of stone, left ureteral stent placement. ANESTHESIA: General endotracheal. COMPLICATIONS: None. SPECIMENS: Ureteral stone. DRAINS: A 6-Gibraltarian x 26 cm ureteral stent. ESTIMATED BLOOD LOSS: Minimal. CONDITION: Stable. INDICATIONS: The patient has a history of renal calculi, recently presented with left sided flank pain. CT scan showed a 5 mm distal ureteral calculus with obstruction, hydronephrosis, and an elevated creatinine. DESCRIPTION OF PROCEDURE: The patient brought to the operative suite and positively identified, placed on the table in supine position. After the induction of general anesthesia, placed in dorsal lithotomy position, the genitalia were prepped and draped in a sterile fashion. Preoperative antibiotics were administered and a timeout was performed. A rigid cystoscope was passed via the urethra and bladder. The urethra was normal. The prostate was mildly enlarged. Upon gaining entrance into the bladder, this was inspected. There were no abnormalities noted. I turned my attention towards the left ureteral orifice. This was intubated with an open-ended catheter and retrograde pyelogram was performed that showed a filling defect in the distal ureter consistent with the stone seen on the previous CT scan. A sensor wire was passed up to the level of the renal pelvis and a rigid ureteroscope was passed alongside this wire until the stone was encountered. Using a 355 micron holmium laser fiber, the stone was fragmented into multiple smaller pieces, all of which were extracted using a Rupert basket. At the end of the procedure, I did not see any sizable stone fragments within the ureter. A final retrograde pyelogram was unremarkable. A 6-Gibraltarian x 26 cm ureteral stent was then placed with a good curl seen proximally and distally. The bladder was then drained. The strings on the stent were cut short. The patient tolerated the procedure well. Sponge and needle counts were correct. Taken to the PACU in stable condition. I attest to the content of the Intraoperative Record and any orders documented therein. Any exception s are noted below.
[2019-08-24 06:45] LABS: Basophils # (auto) 0.02 K/uL (0-0.2); Basophils % (auto) 0.3 %; Eosinophils # (auto) 0.42 K/uL (0-0.5); Eosinophils % (auto) 5.3 %; Hematocrit (blood only) 29.1 % (42-52); Hemoglobin 9.7 g/dL (14.0-18.0); Immature Granulocytes # (auto) 0.02 K/uL (0.00-0.02); Immature Granulocytes % (auto) 0.3 %; Lymphocytes # (auto) 0.98 K/uL (1.2-3.4); Lymphocytes % (auto) 12.4 %; Mean Corpuscular Hemoglobin 30.6 pg (25-34); Mean Corpuscular Hgb Conc 33.3 g/dL (32-36); Mean Corpuscular Volume 91.8 fL (80-100); Mean Platelet Volume 10.4 fL (7.4-10.4); Monocytes # (auto) 0.63 K/uL (0.11-0.59); Neutrophils # (auto) 5.84 K/uL (1.4-6.5); Neutrophils % (auto) 73.7 %; Platelet Count 277 K/uL (130-400); RDW Coefficient of Variation 12.8 % (11.5-14.5); RDW Standard Deviation 43.3 fL (36.4-46.3); Red Blood Count 3.17 M/uL (4.7-6.1); White Blood Count 7.91 K/uL (4.8-10.8)
[2019-08-24 07:17] LABS: BUN Creatinine Ratio 14.3 (10-20); Calcium 8.3 mg/dl (8.5-10.1); Creatinine Clr Calc Pharmacy 27.2 ml/min; Est GFR (African American) 20.4; Est GFR (Non-African American) 17.6; Potassium 4.5 mmol/L (3.5-5.1)
[2019-08-24] MEDS: METOPROLOL TARTRATE 25 MG TAB PO SCH (08:21)
[2019-08-24] MEDS: SUCRALFATE 1 GM TAB PO SCH ×2 (08:22→12:08)
[2019-08-24] MEDS: NYSTATIN POWDER 15GM BTL EXT SCH ×2 (08:23→12:08)
[2019-08-24] MEDS: INSULIN ASPART 100 UNITS/ML 3 ML PEN SC SCH ×2 (08:25→12:39)
[2019-08-24] MEDS ORDERED: PANTOprazole 40 MG TAB PO SCH (09:00)
[2019-08-24] MEDS ORDERED: FUROSEMIDE 20 MG TAB PO SCH (09:00)
[2019-08-24] MEDS ORDERED: FERROUS SULFATE 325 MG TAB PO SCH (09:00)
[2019-08-24] MEDS ORDERED: ASCORBIC ACID 500 MG TAB PO SCH (09:00)
[2019-08-24] MEDS ORDERED: SODIUM CHLORIDE 0.9% 1000ML 1,000 ML IV SCH (09:15)
--- NOTE | 2019-08-24 13:15 | Discharge Summary ---
Date of Service August 24, 2019 Admission HPI Per Admitting Provider Linwood Milton 73 year old male with extensive past medical history of kidney stones and recent right THR who presents to the ER with 1 day left sided flank/back pain. Pain started suddenly in left side of his back, radiating around to his epigastric area, similar to prior stones. Started at 8pm last night. Severity 7-8/10 initially, 6/10 currently. Aching. No dysuria, although producing slightly less urine. He denies any fevers or chills. Previously on tamsulosin when he had prior stones but no longer taking this. Taking Xarelto for DVT prophylaxis only. Admission Exam Per Admitting Provider Constitutional: well developed and well nourished; no acute distress Eyes: + anicteric sclerae; normal pupil size ENMT: external ear and nose normal, oropharynx normal Neck: trachea midline, no thyromegaly Respiratory: normal respiratory effort, lungs clear to auscultation Cardiovascular: Rate/Rhythm: regular rhythm and + tachycardic Heart Sounds: no murmur Vessels: no JVD Extremities: normal capillary refill; no calf tenderness and no pedal edema Gastrointestinal (Abdomen): normal bowel sounds, soft, nontender, no hepatosplenomegaly Musculoskeletal: no cyanosis or clubbing, extremities motor strength 5/5 Skin: no rashes, warm and dry Neurologic: moves all extremities and awake; no focal motor deficits and not confused Psychiatric: A+Ox3, euthymic affect Genitourinary: + CVA tenderness (Left) Principal Diagnosis Left Nephrolithiasis with Hydronephrosis, SERENE Discharge Exam Constitutional WD/WN, vitals as above + obese; no acute distress Eyes + anicteric sclerae and PERRL ENMT external ear and nose normal, oropharynx normal Neck trachea midline, no thyromegaly Respiratory normal respiratory effort, lungs clear to auscultation Cardiovascular RRR, no murmur, no edema Gastrointestinal (Abdomen) normal bowel sounds, soft, nontender, no hepatosplenomegaly Musculoskeletal no cyanosis or clubbing, extremities motor strength 5/5 Skin no rashes, warm and dry Neurologic patellar DTR's 2+ bilat, sensation intact Psychiatric A+Ox3, euthymic affect Lymphatic no cervical or axillary lymphadenopathy Discharge Data Allergies Allergy/AdvReac Type Severity Reaction Status Date / Time Sulfa (Sulfonamide Allergy Intermediate genital Verified 08/23/19 11:38 Antibiotics) area burning sensation doxycycline Allergy Unknown per records Verified 08/23/19 11:38 Consultations 08/23/19 12:18 ED Decision to Admit Stat 08/23/19 12:31 Consult Urology Routine Procedures Performed Operation Date: 08/23/19 17:30 Actual Procedures p Cystoscopy, Laser Lithotripsy Holmium, Basket Stone Extraction, (Left) - Malcolm Pereira MD s Stent Placement(Left) - Malcolm Pereira MD Ordered Studies 08/23/19 FL KUB Routine FL fluoroscopy <1hr Routine 08/23/19 10:44 CT abd pelvis wo con Stat Hospital Course (1) Ureterolithiasis: 5mm distal obstructing stone without symptoms/signs of infection Noted to have SERENE on CKD with Cr up to 3.44 (baseline 2.7) -- given IVF with improvement of Cr to 3.15 prior to discharge, as patient requesting to leave to care for sick cat at home with s/p Cystoscopy, left retrograde pyelogram, left ureteroscopy, laser lithotripsy, stone basket extraction of stone, left ureteral stent placement with Dr. Pereira o 08/22 Encouraged to continue to push oral fluids. Repeat BMP in 2 days outpatient Lasix was given AM of discharge and Cr still improved on afternoon labs -- patient had been taking lasix for history of elevated potassium, and was instructed to continue this medication as ordered and to have follow up labs on Saturday. To follow up with Dr. Tomlinson. (2) Status post total hip replacement, right: Noted recent history of this Held one dose due to stent insertion and resumed xarelto prior to discharge (3) Diabetes mellitus, type II: HbA1C 7.7 [07/13/19] BSG ACHS (Q6H while NPO) with basal bolus regimen similar to home regimen while inpatient Continued home medication at discharge (4) GERD (gastroesophageal reflux disease): Continued pantoprazole and sucralfate (5) BPH (benign prostatic hyperplasia): Continued dutasteride 0.5mg PO QAM (6) Chronic kidney disease, stage III (moderate): Acutely elevated CR from baseline likely combination of pre and post renal from dehydration and obstruction See above (7) Hypertension: Held lasix while creatinine elevated on admission but was resumed per Urology following procedure Continued at discharge given improvement in Cr (8) DVT prophylaxis: Xarelto as above Discharged home. To have follow up with Dr. Morris per conversation with Dr. Pereira. Also to follow up with his plant associate Dr. Tomlinson outpatient as patient only on lasix for 1 month period of time due to hx hyperkalemia. Total Time Total Time Spent Total Time Spent (In Minutes): 60 Discharge Plan Discharge Items Patient Disposition: Home - Self-Care Reason For Visit: URETEROLITHIASIS Discharge Diagnosis: Left Sided Nephrolithiasis with Hydronephrosis and Acute Kidney Injury Condition on Discharge: Good Goals: You have been hospitalized for an urgent problem which required surgery. During your stay at [facility], we have made an effort to correct the problem that brought you to the hospital while keeping you as comfortable as possible. Surgery and medications were used to bring your condition under control and your discharge instructions will include directions for any medications you should take after leaving the hospital. Please make sure to follow the advice of your surgeon regarding follow up with the surgeon and with your primary care provider. Activity: Resume your previous activity Non-emergency contact: Primary Care Provider and Urologist Call non-emergency contact if: you have any medication questions, your symptoms worsen and your pain is worsening Follow-up/Referrals: Saul Morris DO [Physician] - (1 week) Leon Lainez DO [Primary Care Provider] - Diet: Carb Consistent or DM2 and Heart Healthy Ambulatory Orders: Basic Metabolic Panel (Routine) Timeframe: 2 Days Location: Determined by Patient Ordered By: Kailyn Locke Attending Provider Instructions: You have been hospitalized and were found to have a kidney stone that caused an obstruction and lead to an acute kidney injury. You were treated with IV fluids and taken down to the operating room for stone extraction and stent placement by Dr. Pereira. As he only covers for the urology group, you are being set up for follow up in [address] Narayanan's office. - If you do not hear from them by tomorrow, please give them a call at to follow-up for stent removal and to monitor your progress. Repeat labs were done this afternoon for your elevated Creatinine, which has shown improvement. -- It is determined that given improvement of symptoms, you can resume your lasix tomorrow. A lab slip has been provided to repeat your labs in the next 2-3 days. Please follow up with Dr. Tomlinson as previously scheduled. Records will be sent to his office as requested. Please return to the emergency room for any worsening pain, fever, or for any other symptoms that are concerning for you. It has been a pleasure being a part of the medical team providing for you while you have been in the hospital. Take care! Pending Studies at Discharge: Yes Studies:: Stone Composition Stand-Alone Forms: My [facility] Golinda Codekko Medications and DC Order Prescriptions: Continued pantoprazole 40 mg tablet,delayed release (DR/EC) 40 mg PO QAM Qty: 90 RF: 1 (DME) pen needle, diabetic [BD Shira 2nd Gen Pen Needle] 32 gauge x 5/32" needle See Rx Instructions .ROUTE .MEDSUPPLY Qty: 100 RF: 3 (DME) FreeStyle Lite Strips Strip See Dose Instructions .ROUTE .MEDSUPPLY Qty: 200 RF: 3 metoprolol tartrate 25 mg tablet 25 mg PO BID Qty: 180 RF: 3 atorvastatin 20 mg tablet 20 mg PO HS Qty: 30 RF: 5 nystatin 100,000 unit/gram powder 1 appln TOP TID Qty: 30 RF: 3 ergocalciferol (vitamin D2) [Vitamin D2] 1,250 mcg (50,000 unit) capsule 50,000 unit PO MONTHLY Qty: 3 RF: 3 sucralfate 1 gram tablet 1,000 mg PO QID 90 Days Qty: 360 RF: 1 (DME) Wheeled Walker [facility] See Rx Instructions .ROUTE .MEDSUPPLY Qty: 1 RF: 0 (DME) Carlos Eduardo Corona [facility] See Rx Instructions .ROUTE .MEDSUPPLY Qty: 1 RF: 0 travoprost [Travatan Z] 0.004 % Drops 1 drp OPB HS RF: 0 tramadol 50 mg Tablet 50 - 100 mg PO Q6H PRN (Reason: pain) Qty: 30 RF: 0 ferrous sulfate 325 mg (65 mg iron) Tablet 650 mg PO QAM RF: 0 ascorbic acid (vitamin C) [Vitamin C] 500 mg Tablet 500 mg PO QAM RF: 0 Novolog Flexpen U-100 Insulin 100 unit/mL (3 mL) insulin pen See Rx Instructions SUBCUT DAILY PRN (Reason: Hyperglycemia) RF: 0 acetaminophen 500 mg tablet 1,000 mg PO Q8 PRN (Reason: Pain) RF: 0 furosemide 20 mg tablet 20 mg PO QAM RF: 0 dutasteride [Avodart] 0.5 mg capsule 0.5 mg PO QAM RF: 0 Xarelto 10 mg tablet 10 mg PO QDD RF: 0 insulin degludec 200 unit/mL (3 mL) insulin pen 70 unit SUBCUT HS RF: 0 Discontinued cephalexin 500 mg capsule 500 mg PO Q6 10 Days Qty: 40 RF: 0 Discharge Orders: Discharge Order (Routine); Ordered 08/24/19 Ordered By: Kailyn Dumont/Other Patient Handouts: Having a Ureteral Stent, Kidney Stones: Are You at Risk? Admission Data Admit Date/Time: 08/23/19 12:37 Attending Provider: Cate Girard Admit Provider: Bebo Galvan Primary Care Provider: Leon Lainez Other Providers: Malcolm Pereira Other Interventions: Discharge Summary Assessment (RN) Last Done: 08/24/19 14:41 DC Date/Time DO NOT enter until pt leaves facility: 08/24/19 16:26 Supervising Physician Co-Signing Physician Notes PA Supervision Note: I personally saw and examined the patient. I verified all martinez points and agree with COLLIN Chavis with the following exceptions and/or additions: Patient feeling much better. Denies chest pain or shortness of breath. Is ready for discharge home Vitals reviewed Gen: AAOx3, NAD HEENT: Anicteric sclerae, EOMI CV: RRR no mgr nl S1S2 Pulm: CTAB no wcr Abd: +BS soft NT ND no masses or hernias Ext: No edema, 2+ DP pulses Skin: No rashes, warm/dry Neuro: Full strength throughout 73-year-old male with past medical history of DM 2, GERD, BPH, CKD stage III, HTN, with recent JESSICA, here with ureterolithiasis now status post stent. Also with SERENE Stable for discharged home -Follow renal function in the next 2 to 3 days with blood work as an outpatient Coding Level of Care Code D/C Day Management >30 mins Diagnoses Ureterolithiasis N20.1 Status post total hip replacement, right Z96.641 Diabetes mellitus, type II E11.9 GERD (gastroesophageal reflux disease) K21.9 BPH (benign prostatic hyperplasia) N40.0 Chronic kidney disease, stage III (moderate) N18.3 Hypertension I10 Hypertension type: essential hypertension DVT prophylaxis Z29.9
[2019-08-24 14:08] LABS: BUN Creatinine Ratio 13.2 (10-20); Calcium 8.4 mg/dl (8.5-10.1); Creatinine Clr Calc Pharmacy 28.3 ml/min; Est GFR (African American) 21.4; Est GFR (Non-African American) 18.4; Potassium 4.3 mmol/L (3.5-5.1)
--- NOTE | 2019-08-24 14:27 | Urology Progress Note ---
Date of Service August 24, 2019 Assessment & Plan (1) Ureterolithiasis: Postop day #1 status post stent placement for distal left ureteral stone. 5mm. [place] and SEERNE. Persistent pain. Tolerated treatment of stone. Patient has stent in place and will need to have it removed likely in 1 week. Tolerating diet. Increasing activity. Had significant SERENE which is being monitored. Likely can go home once patient improves. (2) Chronic kidney disease, stage III (moderate): Subjective Postop from stent placement for obstruction issues. Patient has been tolerating well. Has noticed some frequency and urgency. Has not had severe pain in the back and flank. Does have occasional burning and irritation. No severe episodes or major changes. No new nausea or vomiting. Had tolerated anesthesia without major problems Review of Systems Review of Systems: All systems reviewed & are unremarkable except as noted in HPI & below Physical Exam Physical Exam: General: Alert in no acute distress. HEENT: Normocephalic Atraumatic. Inspection normal. Cranial Nerves 2-12 Gross ly intact. Normal inspection of face. Normal inspection of neck. Psychologic: Normal affect. Respiratory: Nonlabored. No use of accessory muscles. No tachypnea or dyspnea. Cardiovascular: No tachycardia Skin: [place] and Dry. No rashes or visible lesions. Extremities/Lymphatics: No edema Abdomen: Soft Non-distended. No rebound or guarding. Results & Data Vital Signs (Past 12 Hours) Vital Signs Temp Pulse Resp BP Pulse Ox 08/24/19 07:45 36.5 C 90 16 147/82 H 92 08/24/19 03:09 36.8 C 86 16 149/66 H 94 PG Care Time/CCT Total # of Minutes Spent Total Time Spent with Patient: Total time spent is greater than 50% in coordination of care (as documented) at patient's floor/unit and/or counseling patient: Coding Level of Care Code 59863 Subseq Hosp Care Lvl 2 Diagnoses Ureterolithiasis N20.1 Chronic kidney disease, stage III (moderate) N18.3
[2019-08-24] MEDS ORDERED: RIVAROXABAN 10 MG TABLET PO SCH (16:30)
[2019-08-26] MEDS ORDERED: ERGOCALCIFEROL 50,000 UNITS CAP PO SCH (09:00)
[2019-08-27 13:30] LABS: Component 2 DNR; Source LEFT URETERAL STONE
== END 2019-08-24 16:26 | disposition home or self-care (01) ==
LOC: ED 10:28 → SUATTDRO 12:37 → INTOOBSV 12:37 → 3N 12:37

== ENCOUNTER 2019-12-16 08:29 | Inpatient (IN) ==
[~2019-12-16 08:29] MED LIST changes: -ACETAMINOPHEN 500 MG TAB PO SCH; -BUPIVACAINE 0.5 % 5 MG/1 ML PF 10ML VIAL ONE; -CEFAZOLIN 3000MG 72.5 ML IV SCH; +CIPROFLOXACIN / D5W 400 MG/200 ML BAG IV SCH; -FAMOTIDINE 20 MG TAB PO SCH; -GABAPENTIN 300 MG CAP PO SCH; -LR 60ML/HR IV SCH; -METOCLOPRAMIDE HCL 10 MG TABLET PO SCH; -SODIUM CHLORIDE 0.9% 1000ML IV SCH; -TRANEXAMIC ACID 1,000 MG **IV Pre-op IV SCH
[2019-12-16] MEDS ORDERED: ACETAMINOPHEN 1000 MG/100 ML IV IV STA (09:05)
[2019-12-16] MEDS ORDERED: ONDANSETRON INJ 2 MG/ML 2 ML VIAL IV STA (09:05)
[2019-12-16] MEDS ORDERED: HYDROmorphone INJ 0.5 MG/0.5 ML SYR IV STA (09:05)
[2019-12-16] MEDS ORDERED: SODIUM CHLORIDE 0.9% 1000ML 500 ML IV ONE ×2 (09:22→11:02)
[2019-12-16 09:25] LABS: Basophils # (auto) 0.02 K/uL (0-0.2); Basophils % (auto) 0.2 %; Eosinophils # (auto) 0.33 K/uL (0-0.5); Eosinophils % (auto) 2.6 %; Hematocrit (blood only) 40.7 % (42-52); Hemoglobin 13.4 g/dL (14.0-18.0); Immature Granulocytes # (auto) 0.03 K/uL (0.00-0.02); Immature Granulocytes % (auto) 0.2 %; Lymphocytes % (auto) 10.4 %; Mean Corpuscular Hemoglobin 29.9 pg (25-34); Mean Corpuscular Hgb Conc 32.9 g/dL (32-36); Mean Corpuscular Volume 90.8 fL (80-100); Mean Platelet Volume 10.5 fL (7.4-10.4); Monocytes # (auto) 0.84 K/uL (0.11-0.59); Monocytes % (auto) 6.7 %; Neutrophils # (auto) 9.97 K/uL (1.4-6.5); Neutrophils % (auto) 79.9 %; Platelet Count 213 K/uL (130-400); RDW Coefficient of Variation 14.2 % (11.5-14.5); RDW Standard Deviation 47.8 fL (36.4-46.3); Red Blood Count 4.48 M/uL (4.7-6.1); White Blood Count 12.49 K/uL (4.8-10.8)
[2019-12-16 09:31] LABS: Albumin Level 3.1 gm/dl (3.4-5.0); BUN Creatinine Ratio 11.7 (10-20); Calcium 9.2 mg/dl (8.5-10.1); Creatinine Clr Calc Pharmacy 26.8 ml/min; Est GFR (Non-African American) 17.2; Potassium 4.6 mmol/L (3.5-5.1)
[2019-12-16 09:34] LABS: Albumin Globulin Ratio 0.7 (0.9-2); Bilirubin,Total 0.5 mg/dl (0.2-1); Globulin 4.4 gm/dl (2.5-4.0); Total Protein 7.5 gm/dl (6.4-8.2)
[2019-12-16 09:40] LABS: Appearance Urine Clear (Clear); Bacteria Urine Automated Negative (Negative); Bilirubin Urine Negative (Negative); Blood Urine 1+ (Negative); Cast Urine Automated 0 /lpf (0-5); Color Urine Yellow; Epithelial Cell Urine Auto 0-5 /lpf (0-5); Glucose Urine UA Negative (Negative); Ketones Urine Negative (Negative); Leukocyte Esterase Urine Negative (Negative); Nitrite Urine Negative (Negative); Protein Urine 3+ (Negative); RBC Urine Automated 0-4 /hpf (0-4); Specific Gravity Urine 1.014 (1.000-1.030); Urobilinogen Urine Negative (Negative)
--- NOTE | 2019-12-16 10:58 | CT Scan Report ---
ABDOMEN AND PELVIS CT WITHOUT CONTRAST CT DOSE: 1772.43 mGy.cm HISTORY: Acute left-sided flank pain with history of kidney stones. Acute nausea. Pt c/o left sided flank pain TECHNIQUE: Multiaxial CT images of the abdomen and pelvis were performed without contrast. A dose lo wering technique was utilized adhering to the principles of ALARA. COMPARISON STUDY: CT abdomen and pelvis 08/23/2019 FINDINGS: Mild dependent subsegmental bibasilar atelectasis. No pneumatosis or pneumoperitoneum. Nataly nary artery calcifications. Mild cardiomegaly. Limited evaluation of the solid abdominal organs witho ut the use of IV contrast. Within the limitations of the exam, the spleen, pancreas and adrenal gland s are unremarkable. Cholelithiasis. Unremarkable liver. Mild cortical thinning of the bilateral kidneys. Bilateral renal cysts measure up to 2.8 cm on the ri ght. There is a 2.7 cm intermediate density lesion with [place] of 24 involving the lateral interp olar left kidney suggestive of a probable complex cyst. Nonobstructing calculi of the right kidney me asure up to 4 mm. Nonobstructing calculi of the left kidney are noted with conglomerate calcification s of the inferior pole measuring up to 11 mm. Moderate left-sided hydroureteronephrosis with reactive perinephric and periureteral stranding. There are 2 calculi within the distal left ureter, the more proximal calculus measures 5 mm approximately 3 cm proximal to the ureterovesicular junction. The mor e distal calculus measures 6 x 5 x 4 mm, 12 mm proximal to the ureterovesicular junction. Mild urinar y bladder wall thickening with partial distention. Mild prostamegaly. Surgical clips of the right ing uinal tissues suggests prior inguinal hernia repair. Calcified plaque of the abdominal aorta without aneurysm. No adenopathy. There is no bowel obstruction or bowel wall thickening. Moderate duodenal diverticulum. Colonic diver ticulosis without acute diverticulitis. Noninflamed appendix. Hardware within the right inferior pubi c ramus. Right hip total joint arthroplasty with ORIF changes of the acetabulum. Demineralized appear ance of the bones. Minimal lumbar levoscoliosis. Severe facet arthrosis of the lower lumbar spine. Gr asad 1 retrolisthesis L2 on L3. IMPRESSION: 1. Moderate left-sided hydroureteronephrosis. There are two calculi within the distal left ureter, la rgest of which measures 6 mm, 1.2 cm proximal to the ureterovesicular junction. 2. Nonobstructing bilateral nephrolithiasis. 3. Cholelithiasis. 4. Colonic diverticulosis. 5. No bowel obstruction or bowel wall thickening. 6. Additional findings as above. ACT 112: Negative or not required by law. The above report was generated using voice recognition software. It may contain grammatical, syntax o r spelling errors. Electronically signed by: Syed Ward M.D. 12/16/2019 10:57 AM
--- NOTE | 2019-12-16 11:03 | XRay Report ---
XR KUB/Abdomen 1 view CLINICAL HISTORY: Left-sided flank pain COMPARISON STUDY: CT scan dated 12/16/2019 FINDINGS: Postsurgical changes involve the right hip and right hemipelvis. The bilateral renal calcul i described on the recent CT scan are not visible on conventional x-ray. The distal left ureteral maría culi described on the recent CT scan are also nonvisualized. There are minimally prominent left mid a bdominal small bowel loops, possibly secondary to an ileus given the history of renal colic IMPRESSION: 1. Nonobstructive bowel gas pattern 2. Mildly prominent left mid abdominal small bowel loops, possibly representing an ileus given the pa tient's history of pain 3. No urinary tract calculi identified on conventional radiographic imaging. ACT 112: Negative or not required by law. Electronically signed by: Mor Saini M.D. 12/16/2019 11:02 AM
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
[2019-12-16] MEDS: HYDROmorphone INJ 0.5 MG/0.5 ML SYR IV PRN ×2 (11:16→12:18)
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
[2019-12-16] MEDS ORDERED: ONDANSETRON INJ 2 MG/ML 2 ML VIAL ONE ×2 (13:26→14:04)
[2019-12-16] MEDS ORDERED: PROPOFOL IV EMULSION 10 MG/ML 20 ML VIAL IV ONE (13:26)
[2019-12-16] MEDS ORDERED: PHENYLEPHRINE 100MCG/ML 5ML SYR ONE ×2 (13:26→16:45)
[2019-12-16] MEDS ORDERED: LIDOCAINE HCL 2% 2 ML VIAL/AMP(20MG/ML) INFIL ONE (13:26)
[2019-12-16] MEDS ORDERED: fentaNYL citrate 100 MCG/2 ML VIAL ONE (13:26)
[2019-12-16] MEDS ORDERED: ePHEDrine sulfate 50 MG/ML SYR ONE (13:26)
[2019-12-16] MEDS ORDERED: DEXTROSE 50% 50 ML SYRINGE IV ONE ×2 (13:26→14:39)
[2019-12-16] MEDS ORDERED: MIDAZOLAM HCL 1 MG/ML 2ML VIAL ONE (13:27)
[2019-12-16] MEDS ORDERED: SUCCINYLCHOLINE CHLORIDE 20 MG/ML 10 ML VIAL IV ONE (14:04)
--- NOTE | 2019-12-16 14:22 | Communication Note ---
Date of Service: December 16, 2019 After initial evaluation, rapid screen for covid returned positive. the patient was immediately placed in isolation room with his . It was also approved to obtain a PCR test for the patient. I had a discussion with the surgeon regarding the urgent need of management due to his acute kidney injury. It was decided that if possible, avoiding general anesthetic and airway management was in the best interest of both the patient and OR staff if he is positive on the confirmatory PCR. If the test confirms SARS CoV2, the patient will most likely undergo stenting today under sedation and will return if necessary for laser lithotripsy after negative testing at a later date. The patient and his were councelled extensively by myself. He is asymptomatic as is his . She will leave the hospital at the time the patient leaves for the OR, immediately place a call to her family physician, and will self isolate at home. The patient's housing overnight on the COVID unit versus a regular medical floor will depend on the results of his confirmatory test. I have spoken with hospital leadership who is in communication with infection control and in agreement with this plan.
[2019-12-16] MEDS ORDERED: CIPROFLOXACIN 400MG / 200ML D5W IV ONE (15:25)
--- NOTE | 2019-12-16 15:33 | Communication Note ---
Date of Service: December 16, 2019 Cephiad test used as COVID confirmation is negative. After discussion with Dr Melchor, we can proceed with assumption that patient is COVID negative and using standart PPE/COVID precautions. The patient and his were notified.
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
[2019-12-16] MEDS ORDERED: LACTATED RINGER'S 1,000 ML IV SCH (16:15)
[2019-12-16] MEDS ORDERED: DIATRIZOATE MEGLUMINE 30% 100ML VIAL INSTIL ONE (16:44)
--- NOTE | 2019-12-16 17:17 | Post Operative Brief Note ---
PG Immediate Post Op with CF Date of Surgery December 16, 2019 Pre & Post Diagnosis Operation Date: 12/16/19 13:05 Pre-Op Diagnosis: Renal colic; Ureterolithiasis Post-Op Diagnosis: Renal colic; Ureterolithiasis I identified the patient and participated in the time-out.: Yes Procedure Operation Date: 12/16/19 13:05 Actual Procedures p Cystoscopy, Left Ureteroscopy, Laser Lithotripsy, Stone Basketing, Ureteral Dilation, Left Ureteral Stent Placement; Urethral Dilation(Left) - Kuldip Blancas MD Surgeon Kuldip Blancas MD Account Resolution Specialist none Estimated Blood Loss 2 Findings Consistent with Post-Op Diagnosis
--- NOTE | 2019-12-16 17:54 | Fluoroscopy Report ---
INTRAOPERATIVE RADIOGRAPHS CLINICAL HISTORY: Left-sided retrograde pyelogram and ureteral stent placement. FINDINGS: 4 spot fluoroscopic views of the left abdomen are correlated with abdominal CT dated 2019. The initial image shows a calculus within the distal left ureter with an adjacent wire. A litho tripsy device is advanced. The final image shows the proximal end of a ureteral stent projecting over the left renal pelvis. There is a large calcification within the left lower pole collecting system. IMPRESSION: Intraoperative images from a left-sided retrograde pyelogram and ureteral stent placement procedure as above. Electronically signed by: Conor Dick M.D. 12/16/2019 5:52 PM
--- NOTE | 2019-12-16 18:01 | Anesthesiology Progress Note ---
Date of Service December 16, 2019 Anesthesia Post Procedure Vital Signs Vital Signs: Temp Pulse Pulse Resp BP BP Pulse Ox 12/16/19 17:55 36 C L 83 16 123/69 93 12/16/19 17:45 88 17 116/64 99 12/16/19 17:35 88 16 110/70 99 12/16/19 17:25 36 C L 94 H 18 139/92 97 12/16/19 13:35 36.7 C 69 20 168/90 H 95 12/16/19 12:19 69 20 168/90 H 95 12/16/19 11:05 74 16 202/101 H 97 12/16/19 10:15 85 16 185/99 H 96 12/16/19 08:43 37.3 C 83 20 201/115 H 96 Pain Intensity Abdomen: Pain Intensity: 3 Transfer of Care Handoff Completed per policy Notes Mental Status: alert / awake / arousable and participated in evaluation Patient Amnestic to Procedure: Yes Nausea / Vomiting: adequately controlled Pain: adequately controlled Airway Patency, RR, SpO2: stable & adequate BP & HR: stable & adequate Hydration State: stable & adequate Anesthetic Complications: no major complications apparent and Pt Satisfied with anesthetic care
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
--- NOTE | 2019-12-16 18:49 | Operative Report (OR) ---
DATE OF OPERATION: 12/16/2019 PREOPERATIVE DIAGNOSIS: Distal right ureteral calculi. POSTOPERATIVE DIAGNOSIS: Distal right ureteral calculi, meatal stenosis. PROCEDURE PERFORMED: Urethral dilation, cystoscopy, balloon dilation of ureteral stricture, left ureteroscopy, laser lithotripsy and left stent placement with stone basketing. SURGEON: Kuldip Blancas MD. ANESTHESIA: General. INDICATIONS: The patient is a 73-year-old male with history of uric acid stones, presented with a CT scan that showed a 6 mm and a 3 mm distal ureteral stones. The patient's creatinine was rising, so he was taken from the Emergency Room to the operating room for ureteroscopy. He had a COVID test in the preoperative area that was a rapid test that was positive. Subsequently, he had a PCR rapid test that was negative. Because of this, he was taken for ureteroscopy as he was asymptomatic for COVID and had a negative PCR test for definitive treatment. DESCRIPTION OF THE PROCEDURE: He had Venodyne stockings placed. He was given preoperative ciprofloxacin. He was given anesthesia and prepped and draped in the usual sterile fashion. Attempts to pass the 21-[place] cystoscope were unsuccessful. The meatus was dilated to 24-[place] and then the 21-[place] was passed without difficulty. The patient appeared to have no strictures, but he did have previous apparent TUR of the prostate. I could not pass a dual flex guidewire into the left ureteral orifice, but I finally was able to pass an open-ended catheter through the opening and then passed a guidewire through the open-ended catheter up into the kidney. Then, because the opening appeared to be quite narrow, I did dilate it with a 4 cm 20 atmosphere balloon to 14 atmospheres for 1 minute, then deflated it and was able to pass the ureteroscope up to a large stone, I took some photographs of the stone, pre and postop. I fragmented the stone into multiple fragments. A good number of them passed, I removed a large one that got stuck into the urethra, I then lasered it into smaller pieces. At the end of the procedure, there were only small pieces. I took a photograph of this that were easily passable. All the other pieces have been fragmented into small enough pieces to pass or have been removed. I passed a 4.8-[place] 26 cm stent over the guidewire into the left renal pelvis, emptied the bladder and the patient was transferred to the recovery room in stable condition. I attest to the content of the Intraoperative Record and any orders documented therein. Any exceptions are noted below. MTDD
[2019-12-16] MEDS ORDERED: ACETAMINOPHEN 500 MG TAB PO PRN (20:31)
[2019-12-16] MEDS ORDERED: HYDROmorphone INJ 1 MG/ML SYRINGE IV PRN (20:31)
[2019-12-16] MEDS ORDERED: CARBOHYDRATES FOR HYPOGLYCEMIA PO PRN (20:31)
[2019-12-16] MEDS ORDERED: ONDANSETRON INJ 2 MG/ML 2 ML VIAL IV PRN (20:31)
[2019-12-16] MEDS ORDERED: GLUCAGON FOR INJ 1 MG VIAL SQ PRN (20:31)
[2019-12-16] MEDS ORDERED: oxyCODONE HCL IR 5 MG TAB (IMMEDIATE RELEASE) PO PRN (20:31)
[2019-12-16] MEDS ORDERED: DEXTROSE 50% 50 ML SYRINGE IV PRN (20:31)
[2019-12-16] MEDS ORDERED: GLUCOSE 10 TABS/TUBE PO PRN (20:31)
[2019-12-16] MEDS ORDERED: GLUCOSE 40% GEL 15 GM TUBE PO PRN (20:31)
[2019-12-16] MEDS ORDERED: HYDROmorphone INJ 0.5 MG/0.5 ML SYR IV PRN (20:31)
[2019-12-16] MEDS ORDERED: PHARMACY GLYCEMIC MGMT CONSULT PRN (20:44)
[2019-12-16] MEDS ORDERED: TRAVOPROST Z 0.004% OPH SOLN 2.5 ML BTL OPB SCH (21:00)
[2019-12-16] MEDS ORDERED: INSULIN DEGLUDEC 70 UNIT SQ SCH (21:00)
[2019-12-16] MEDS ORDERED: ATORVASTATIN 20 MG TAB PO SCH (21:00)
[2019-12-16] MEDS: SODIUM CHLORIDE 0.9% 1000ML 1,000 ML IV SCH (21:02)
[2019-12-16] MEDS ORDERED: TAMSULOSIN HCL 0.4 MG CAP PO ONE (21:30)
[2019-12-16] MEDS: METOPROLOL TARTRATE 25 MG TAB PO SCH (21:50)
[2019-12-16] MEDS: NYSTATIN POWDER 15GM BTL EXT SCH (21:50)
[2019-12-16] MEDS ORDERED: INSULIN GLARGINE SOLOSTAR 100 UNITS/ML 3 ML PEN SC ONE (22:00)
[2019-12-16] MEDS ORDERED: COUGH DROP (SUGAR FREE) LOZ 24 LOZ/1 BOX BUCCAL ONE (23:55)
[2019-12-17] MEDS: INSULIN ASPART 100 UNITS/ML 3 ML PEN SC SCH ×5 (00:55→17:52)
[2019-12-17] MEDS: SODIUM CHLORIDE 0.9% 1000ML 1,000 ML IV SCH (01:53)
[2019-12-17] MEDS ORDERED: CIPROFLOXACIN / D5W 400 MG/200 ML BAG IV SCH (06:00)
--- NOTE | 2019-12-17 06:30 | Emergency Department Note ---
General (ED) Blank Date of Service December 16, 2019 ED Visit Note I personally saw, interviewed, and examined the patient. Patient's case was discussed with Dr. Beltran, ED attending, and I assisted with MDM. Please see attending documentation for full details. Resident Activity Tracking Resident Involvement: Resident Care Provided Care Provided: Adult ED : Acute on chronic kidney failure Qualifiers: Acute renal failure type: unspecified Chronic kidney disease stage: unspecified stage Qualified Code(s): N17.9 - Acute kidney failure, unspecified
[2019-12-17] MEDS ORDERED: INSULIN ASPART 100 UNITS/ML 3 ML PEN SC SCH (08:00)
[2019-12-17 08:19] LABS: Estimated Average Glucose 180 mg/dl; Hemoglobin A1C 7.9 % (4.5-5.6)
[2019-12-17 08:32] LABS: BUN Creatinine Ratio 10.7 (10-20); Calcium 8.1 mg/dl (8.5-10.1); Est GFR (African American) 19.3; Est GFR (Non-African American) 16.6; Potassium 4.9 mmol/L (3.5-5.1)
[2019-12-17] MEDS ORDERED: ASCORBIC ACID 500 MG TAB PO SCH (09:00)
[2019-12-17] MEDS ORDERED: PANTOprazole 40 MG TAB PO SCH (09:00)
[2019-12-17] MEDS: METOPROLOL TARTRATE 25 MG TAB PO SCH (09:08)
[2019-12-17] MEDS: NYSTATIN POWDER 15GM BTL EXT SCH ×2 (09:09→14:03)
--- NOTE | 2019-12-17 09:48 | Urology Progress Note ---
Date of Service December 17, 2019 Assessment & Plan (1) Renal colic: (2) Ureterolithiasis: 73 year-old male patient, with multiple comorbidities, admitted with intractable left flank pain secondary to 2 left distal ureteral stones with associated moderate left hydronephrosis. -POD #1 urethral dilation, cystoscopy, balloon dilation of ureteral stricture, left ureteroscopy, laser lithotripsy and left stent placement with stone basketing. -He is clinically progressing with resolution of pain. -Afebrile, slight increase in creatinine today. -Okay from perspective for discharge once medically stable. -Recommend home with Tamsulosin and three day course of antibiotic therapy. -Recommend continued outpatient follow-up with nephrology and to discuss use of Allopurinol. -Will arrange outpatient follow-up with urology service for stent removal. -Patient in agreement with plan, all questions answered. Admission and Anticipated Discharge Date Admission Date: December 16, 2019 Subjective 73 year-old male patient POD #1 urethral dilation, cystoscopy, balloon dilation of ureteral stricture, left ureteroscopy, laser lithotripsy and left stent placement with stone basketing secondary to 2 distal ureteral stones. He is clinically feeling better since procedure. Denies flank or abdominal pain. Currently tolerating stent. Voiding spontaneously, does report hematuria as expected. Denies urinary frequency/urgency. Denies dysuria. Has been tolerating diet without nausea or vomiting. Denies fevers or chills. Has been out of bed without dizziness/lightheadedness. Anxious to be discharged today. Chart review: Afebrile Creatinine 3.43 (previously 3.33) Denies additional urologic concerns today. Review of Systems Constitutional: as per Subjective / HPI; no fever and no chills Gastrointestinal: as per Subjective / HPI; no nausea and no vomiting Genitourinary: + as per Subjective / HPI Neurologic: no dizziness Physical Exam Constitutional: well developed and well nourished; no acute distress and not ill appearing Respiratory: normal respiratory effort and able to speak in complete sentences; no respiratory distress and no audible wheezes Cardiovascular: Extremities: no calf tenderness and no edema Gastrointestinal (Abdomen): Inspection/Auscultation: abdomen normal to inspection; abdomen not distended Percussion/Palpation: abdomen soft; abdomen nontender and no guarding Psychiatric: Orientation: alert, oriented x 3 and cooperative Affect: euthymic affect Genitourinary: no CVA tenderness Results & Data ([facility]) Vital Signs (Past 12 Hours) Vital Signs Temp Pulse Resp BP BP Pulse Ox 12/17/19 08:04 36.8 C 90 18 157/82 H 92 12/17/19 07:54 36.4 C L 59 L 18 134/66 98 12/17/19 03:59 37.0 C 84 14 154/83 H 94 12/16/19 23:30 36.9 C 91 H 16 148/85 H 95 12/16/19 22:27 36.9 C 95 H 18 163/90 H 94 PG Care Time/CCT Total # of Minutes Spent Total Time Spent with Patient: Total time spent is greater than 50% in coordination of care (as documented) at patient's floor/unit and/or counseling patient: Coding Level of Care Code 54743 Subseq Hosp Care Lvl 2 Diagnoses Renal colic N23 Ureterolithiasis N20.1
[2019-12-17] MEDS ORDERED: SODIUM CHLORIDE 0.9% 1000ML 1,000 ML IV SCH (11:00)
[2019-12-17 15:45] LABS: BUN Creatinine Ratio 11.3 (10-20); Calcium 8.1 mg/dl (8.5-10.1); Creatinine Clr Calc Pharmacy 26.5 ml/min; Est GFR (African American) 19.7; Potassium 4.5 mmol/L (3.5-5.1)
--- NOTE | 2019-12-17 17:30 | Discharge Summary ---
Date of Service December 17, 2019 Admission HPI Per Admitting Provider Patient presents with left-sided abdominal pain and back pain reminiscent of his previous renal colic he was confirmed to have a 6 mm distal left ureteral stone with acute kidney injury on imaging in the emergency department. Urology was consulted and considering intervention for stone retrieval due to his decline in renal function. Otherwise patient has no complaints or problems he is tolerated previous anesthesia without issues he is no subjective signs or symptoms of heart failure objectively he has clear lungs. An EKG was not performed in the ER will likely catch an EKG preoperatively in order preoperative Covid test Principal Diagnosis SERENE on CKD stage 4, Ureterolithiasis Discharge Exam Constitutional WD/WN, vitals as above Eyes + anicteric sclerae Neck trachea midline, no thyromegaly Respiratory normal respiratory effort, lungs clear to auscultation Cardiovascular Rate/Rhythm: regular rate and regular rhythm Extremities: + edema (1+ pitting edema legs to knees bilat) Chest (Breasts) Chest: normal inspection of chest Gastrointestinal (Abdomen) normal bowel sounds, soft, nontender, no hepatosplenomegaly Musculoskeletal Extremities: no cyanosis and no clubbing Skin chronic venous stasis changes Neurologic moves all extremities and awake; no focal motor deficits Psychiatric A+Ox3, euthymic affect Lymphatic no lymphedema Discharge Data Allergies Allergy/AdvReac Type Severity Reaction Status Date / Time Sulfa (Sulfonamide Allergy Intermediate genital Verified 12/16/19 09:17 Antibiotics) area burning sensation doxycycline Allergy Unknown per records Verified 12/16/19 09:17 Consultations 12/16/19 10:52 Consult Urology Stat 12/16/19 10:53 ED Decision to Admit Stat 12/16/19 20:31 Consult Urology Routine Procedures Performed Operation Date: 12/16/19 13:05 Actual Procedures p Cystoscopy, Left Ureteroscopy, Laser Lithotripsy, Stone Basketing, Ureteral Dilation,; Urethral Dilation(Left) - Kuldip Blancas MD s Left Ureteral Stent Placement(Left) - Kuldip Blancas MD Ordered Studies 12/16/19 09:39 CT abd pelvis wo con Stat 12/16/19 13:01 FL retrograde includes kub Routine KUB Hospital Course (1) Renal colic: Admitted with left sided ureterolithiasis, with SERENE. Now s/o left ureteral stent and laser lithtripsy Given IVFs Will send home with tamsulosin, 3 days of CIpro as per Urology. F/u in Urol office for stent removal no pain control needed otherwise CT abd/pelvis 12/16/19 IMPRESSION: 1. Moderate left-sided hydroureteronephrosis. There are two calculi within the distal left ureter, largest of which measures 6 mm, 1.2 cm proximal to the ureterovesicular junction. 2. Nonobstructing bilateral nephrolithiasis. 3. Cholelithiasis. 4. Colonic diverticulosis. 5. No bowel obstruction or bowel wall thickening. OF NOTE, he had a FALSE POSITIVE COVID test upon admission. Had 2 negative tests subsequently. COVID instructions given upon discharge (2) Acute on chronic kidney failure: Plastics Fabricator up to 3.4 from baseline 2.6 Now s/p ureteral stent and relief of obstruction Plastics Fabricator only down slightly to 3.3 on day of discharge but should improve. Advised to drink fluids, HOLD lasix Repeat BMP as outpt on Saturday with results to Dr. Tomlinson Discussed his care with Dr. Tomlinson (3) Diabetes mellitus, type II: Patient typically takes Tresiba and sliding scale insulin will be continued with sliding scale with carb coverage we will order Tresiba or pha rmacy substitute with glycemic management oversight (4) Chronic kidney disease, stage III (moderate): as above (5) BPH (benign prostatic hyperplasia): continue dutasteride give tamsulosin x 14 days (6) Hypertension: Controlled -continue metoprolol 25 twice daily holding lasix (7) Uric acid urolithiasis: based on [facility]ol[facility] urine studies, needs alkalinization of urine -starting sodium bicarb 650mg po once daily upon discharge f/u with Nephro and Urol after dc (8) Anemia: chronic, secondary to CKD follow CBC as outpt continue FeSO4 (9) GERD (gastroesophageal reflux disease): continue PPI no acute issues (10) Metabolic acidosis: HCO3 slightly down to 18, likely from SERENE non anion gap d/w Nephro start NaHCO3 650mg po qday repeat labs Saturday (11) DVT prophylaxis: SCDs Dispo-stable for dc to home Total Time Total Time Spent Total Time Spent (In Minutes): 45 min Total Time Includes: Examination of the Patient, Discharge Planning and Medication Reconciliation Discharge Plan Discharge Items Patient Disposition: Home - Self-Care Reason For Visit: SERENE WITH CKD3, RENAL COLIC Discharge Diagnosis: Acute kidney injury, ureterolithiasis now status post ureteral stent Condition on Discharge: Good Activity: Resume your previous activity Non-emergency contact: Primary Care Provider, Bit Tripoler and Urologist Call non-emergency contact if: you have any medication questions, your symptoms worsen, your pain is not controlled, your pain is worsening, your pain is unusual for you, your pain is concerning for you and you have a fever Follow-up/Referrals: Kuldip Blancas MD [Physician] - 12/29/19 3:30 pm (Please follow-up within 1 to 2 weeks for stent removal.) Saul Tomlinson MD [Physician] - 12/31/19 2:30 pm (Please follow-up within 2 weeks for kidney stones and chronic kidney disease.) Leon Lainez DO [Primary Care Provider] - 12/28/19 11:30 am (Please follow-up within 1 to 2 weeks.) Diet: Low Potassium (2gm) and Low Sodium (2gm) Ambulatory Orders: Renal Function Panel (Routine) Timeframe: 4 Days Location: Determined by Patient Ordered By: Cate Locke Attending Provider Instructions: You are admitted for a kidney stone and had a stent placed in kidney stone was broken up into pieces. Your kidney function is a little bit worse than previous. You were given IV fluids and had repeat blood work which showed improvement in your kidney function. Please continue to take tamsulosin once a day for the kidney stones and stent as well as antibiotics for the next 3 days. Please follow-up with Dr. Tomlinson within the next 2 weeks to discuss starting on medication to help prevent kidney stones. Please follow-up with urology within 1 to 2 weeks for stent removal. Please do not take your furosemide for the next week until you see Dr. Tomlinson and have your kidney function rechecked on Saturday. Please have blood work checked on Saturday to repeat your kidney function You are started on new medication called sodium bicarbonate to be taken 1 tab once daily to help prevent kidney stones but also to help with your kidney disease. Follow-up with your PCP within 1 to 2 weeks. Pending Studies at Discharge: No Stand-Alone Forms: My AFFiRiS, Smoking Cessation Medications and DC Order Prescriptions: New tamsulosin 0.4 mg Capsule 0.4 mg PO HS Qty: 14 RF: 0 ciprofloxacin HCl [Cipro] 500 mg tablet 500 mg PO DAILY Qty: 3 RF: 0 sodium bicarbonate 650 mg tablet 650 mg PO DAILY Qty: 30 RF: 0 Continued pantoprazole 40 mg tablet,delayed release (DR/EC) 40 mg PO QAM Qty: 90 RF: 1 (DME) FreeStyle Lite Strips Strip See Dose Instructions .ROUTE .MEDSUPPLY Qty: 200 RF: 3 metoprolol tartrate 25 mg tablet 25 mg PO BID Qty: 180 RF: 3 nystatin 100,000 unit/gram powder 1 appln TOP TID Qty: 30 RF: 3 ergocalciferol (vitamin D2) [Vitamin D2] 1,250 mcg (50,000 unit) capsule 50,000 unit PO MONTHLY Qty: 3 RF: 3 sucralfate 1 gram tablet 1,000 mg PO QID 90 Days Qty: 360 RF: 1 atorvastatin 20 mg tablet 20 mg PO HS Qty: 90 RF: 3 (DME) pen needle, diabetic [BD Ultra-Fine Shira Pen Needle] 32 gauge x 5/32" needle See Rx Instructions .ROUTE .MEDSUPPLY Qty: 400 RF: 3 (DME) Wheeled Walker Misc See Rx Instructions .ROUTE .MEDSUPPLY Qty: 1 RF: 0 travoprost [Travatan Z] 0.004 % Drops 1 drp OPB HS RF: 0 Tresiba FlexTouch U-200 200 unit/mL (3 mL) insulin pen 70 unit SUBCUT HS RF: 0 ferrous sulfate 325 mg (65 mg iron) Tablet 650 mg PO QAM RF: 0 ascorbic acid (vitamin C) [Vitamin C] 500 mg Tablet 500 mg PO QAM RF: 0 Novolog Flexpen U-100 Insulin 100 unit/mL (3 mL) insulin pen 22 unit SUBCUT DAILY PRN (Reason: Hyperglycemia) RF: 0 acetaminophen 500 mg tablet 1,000 mg PO Q8 PRN (Reason: Pain) RF: 0 dutasteride [Avodart] 0.5 mg capsule 0.5 mg PO QAM RF: 0 Discontinued furosemide 20 mg tablet 20 mg PO QAM Qty: 30 RF: 5 Discharge Orders: Discharge Order (Routine); Ordered 12/17/19 Ordered By: Cate Dumont/Other Patient Handouts: Abdominal Pain, Coping with Kidney Failure, Medicine for Pain Admission Data Admit Date/Time: 12/16/19 20:31 Attending Provider: Cate Girard Admit Provider: Malcolm Owen Primary Care Provider: Leon Lainez Other Providers: Kuldip Blancas ; Malcolm Owen Coding Level of Care Code D/C Day Management >30 mins Diagnoses Renal colic N23 Acute on chronic kidney failure N17.9; N18.9 Acute renal failure type: unspecified Chronic kidney disease stage: unspecified stage Diabetes mellitus, type II E11.9 Chronic kidney disease, stage III (moderate) N18.3 BPH (benign prostatic hyperplasia) N40.0 Hypertension I10 Hypertension type: essential hypertension Uric acid urolithiasis N20.9 Anemia D64.9 GERD (gastroesophageal reflux disease) K21.9 Metabolic acidosis E87.2 DVT prophylaxis Z29.9
[2019-12-17] MEDS ORDERED: TAMSULOSIN HCL 0.4 MG CAP PO SCH (21:00)
[2019-12-17] MEDS ORDERED: INSULIN GLARGINE SOLOSTAR 100 UNITS/ML 3 ML PEN SC SCH ×2 (21:00)
== END 2019-12-17 18:22 | disposition home or self-care (01) | DRG 694 ==
LOC: ED 08:29 → OR 14:26 → SUATTDRO 20:31 → 3N 20:31

== ENCOUNTER 2022-09-06 18:50 | Observation (INO) ==
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
[2022-09-06] MEDS ORDERED: LACTATED RINGER'S 1,000 ML IV SCH ×2 (19:45→23:34)
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
[2022-09-06 21:04] LABS: Appearance Urine Clear (Clear); Bacteria Urine Automated Negative (Negative); Bilirubin Urine Negative (Negative); Blood Urine 1+ (Negative); Color Urine Yellow; Glucose Urine UA Trace (Negative); Ketones Urine Negative (Negative); Leukocyte Esterase Urine Negative (Negative); Nitrite Urine Negative (Negative); Protein Urine 2+ (Negative); RBC Urine Automated 0-4 /hpf (0-4); Specific Gravity Urine 1.008 (1.000-1.030); Urobilinogen Urine Negative (Negative); pH Urine 5.5 (4.5-7.5)
[2022-09-06 21:17] LABS: Magnesium 1.8 mg/dl (1.7-2.4)
[2022-09-06 21:27] LABS: Influenza A virus by PCR Negative (Neg); Influenza B virus by PCR Negative (Neg); RSV by PCR Negative (Neg); SARS CoV2 RNA(COVID-19) Ceph NEGATIVE (Negative)
--- NOTE | 2022-09-06 23:21 | Ultrasound Report ---
Exam(s): US RENAL EXAM: US Retroperitoneal Limited, Renal CLINICAL HISTORY: Reason for exam: SERENE on CKD. TECHNIQUE: Real-time limited ultrasound of the retroperitoneum with image documentation. COMPARISON: Renal ultrasound 11/13/2021 FINDINGS: Right kidney: Right kidney measures 11 cm in long axis. Multiple bilateral renal cysts are seen. no hydronephrosis. Left kidney: Left kidney measures 12.6 cm in long axis. IMPRESSION: No hydronephrosis. Electronically signed by: Ryder Hernández MD 09/06/22 23:19 PM
[2022-09-06] MEDS ORDERED: CARBOHYDRATES FOR HYPOGLYCEMIA PO PRN (23:34)
[2022-09-06] MEDS ORDERED: ACETAMINOPHEN 325 MG TAB PO PRN (23:34)
[2022-09-06] MEDS ORDERED: GLUCAGON FOR INJ 1 MG VIAL SQ PRN (23:34)
[2022-09-06] MEDS ORDERED: ONDANSETRON INJ 2 MG/ML 2 ML VIAL IV PRN (23:34)
[2022-09-06] MEDS ORDERED: GLUCOSE 10 TAB/TUBE PO PRN (23:34)
[2022-09-06] MEDS ORDERED: GLUCOSE 40% GEL 15 GM TUBE PO PRN (23:34)
[2022-09-06] MEDS ORDERED: POLYETHYLENE (MIRALAX) 17 GM PACK PO PRN (23:34)
[2022-09-06] MEDS ORDERED: DEXTROSE 50% 50 ML SYRINGE IV PRN (23:34)
[2022-09-07] MEDS: METOPROLOL TARTRATE 100 MG TAB PO SCH ×3 (00:24→21:14)
[2022-09-07] MEDS: metroNIDAZOLE 500 MG TAB PO SCH ×2 (00:24→07:54)
[2022-09-07] MEDS: SUCRALFATE 1 GM TAB PO SCH ×5 (00:24→21:12)
[2022-09-07] MEDS: SODIUM BICARBONATE 650 MG TAB PO SCH ×3 (00:24→21:13)
[2022-09-07] MEDS: allopurinoL 100 MG TAB PO SCH ×2 (00:25→21:13)
[2022-09-07] MEDS: ATORVASTATIN 20 MG TAB PO SCH ×2 (00:25→21:13)
[2022-09-07] MEDS: INSULIN ASPART PER UNIT CHARGE SC SCH ×5 (00:25→21:19)
[2022-09-07] MEDS: LANTUS PER UNIT CHARGE SQ SCH ×3 (00:31→21:18)
[2022-09-07 06:05] LABS: Hemoglobin 11.1 g/dl (14.0-18.0); Mean Corpuscular Hemoglobin 32.3 pg (25.0-34.0); Mean Corpuscular Hgb Conc 35.8 g/dL (32.0-36.0); Mean Corpuscular Volume 90.1 fL (80.0-100.0); Mean Platelet Volume 10.4 fL (9.4-12.4); Platelet Count 199 K/uL (130-400); RDW Standard Deviation 42.7 fL (36.4-46.3); Red Blood Count 3.44 M/uL (4.70-6.10); White Blood Count 9.42 K/ul (4.8-10.8)
[2022-09-07 06:23] LABS: BUN Creatinine Ratio 14.3 (10-20); Creatinine Clr Calc Pharmacy 16.2 ml/min; Est GFR (African American) 12.5 ml/min; Est GFR (Non-African American) 10.8 ml/min; Potassium 4.4 mmol/L (3.5-5.1)
[2022-09-07] MEDS ORDERED: COUGH DROP (SUGAR FREE) LOZ 24 LOZ/1 BOX BUCCAL PRN (07:58)
--- NOTE | 2022-09-07 08:13 | Hospitalist Progress Note ---
Date of Service September 07, 2022 Assessment & Plan (1) SERENE (acute kidney injury): Plan: Linwood Milton is a 76 yo male presenting with SERENE on CKD. Patient with history of CKD IV with baseline Cr of 3-4, recent hospitalization at [facility] for diverticulitis admitted with worsening renal function. BUN of 72 and Cr of 5.19-> 4.8 on repeat check, continue to trend. Electrolytes and metabolic profile are otherwise acceptable with K of 4.4. Patient reports he is urinating without difficulty, have asked staff for strict intake and output. Urinalysis with 2+ protein, trace glucose, 1+ blood with no RBCs detected. Renal US without evidence of obstruction. Suspect dehydration/prerenal, did receive some IVF which has since been discontinued in favor of PO intake. Avoid nephrotoxic agents. Continue Calcitriol, NaHCO3 650mg po BID. Nephrology consultation appreciated. (2) Diverticulitis: Plan: Patient with recently diagnosed acute uncomplicated diverticulitis. He is presently on Augmentin and Metronidazole (Augmentin started 08/31). Was also on metronidazole, however do not feel that double-anaerobic coverage is necessary so d/c'ed metronidazole. Continue Augmentin through 09/09 for total of 10 days of therapy. No complaints of abdominal pain, nausea, diarrhea at this time. (3) Hypertension: Plan: Chronic. Hypertensive on arrival, cont metoprolol 100mg po BID, consider transition to different agent if still hypertensive (started on this for sinus tachy at outside facility) (4) Diabetes mellitus type 2 in obese: Plan: Fairly well controlled. Last IszA0P=0.9 on 06/11/22. Patient is on dulaglutide as well as insulin degludec outpatient. Lantus 7u BID with SSI while admitted. (5) Hyperlipidemia: Plan: Chronic. Stable. Continue Atorvastatin 20mg po qHS (6) GERD (gastroesophageal reflux disease): Plan: Chronic. Stable. Continue Protonix 40mg po daily, Sucralfate (7) BPH (benign prostatic hyperplasia): Plan: Chronic. Stable -Continue Tamsulosin -Continue Dutasteride Admission and Anticipated Discharge Date Admission Date: September 06, 2022 Subjective Patient without any acute events overnight. Denies abdominal pain, nausea, fevers, chills, shortness of breath, chest pain. Review of Systems Review of Systems: All systems reviewed & are unremarkable except as noted in Subjective Physical Exam Constitutional: WD/WN, vitals as above Respiratory: normal respiratory effort, lungs clear to auscultation Cardiovascular: RRR, no murmur, no edema Gastrointestinal (Abdomen): normal bowel sounds, soft, nontender, no hepatosplenomegaly Skin: no rashes, warm and dry Psychiatric: A+Ox3, euthymic affect Results & Data Results & Data Vital Signs (Past 12 Hours) Vital Signs Temp Pulse Resp BP Pulse Ox O2 Del Method 09/07/22 07:17 36.6 C 91 H 18 161/89 H 94 Room Air 09/07/22 03:09 36.7 C 86 18 153/84 H 93 Room Air 09/06/22 23:25 36.2 C L 88 16 163/87 H 95 Room Air 09/06/22 22:49 90 19 137/75 94 Room Air 09/06/22 20:52 94 H 19 158/83 H 96 Room Air PG Care Time/CCT Total # of Minutes Spent Total Time Spent with Patient: Total time spent is greater than 50% in coordination of care (as documented) at patient's floor/unit and/or counseling patient: Coding Level of Care Code 79829 SUB INP/OBS CARE 3/50MIN Diagnoses SERENE (acute kidney injury) N17.9 Diverticulitis K57.92 Hypertension I10 Hypertension type: essential hypertension Diabetes mellitus type 2 in obese E11.69; E66.9 Hyperlipidemia E78.5 GERD (gastroesophageal reflux disease) K21.9 BPH (benign prostatic hyperplasia) N40.0 (3) Hypertension Hypertension type: essential hypertension Qualified Code(s): I10 - Essential (primary) hypertension
[2022-09-07] MEDS: CALCITRIOL 0.25 MCG CAPSULE PO SCH (08:50)
[2022-09-07] MEDS: FINASTERIDE 5 MG TAB PO SCH (08:51)
[2022-09-07] MEDS: AMOXICILLIN/CLAVULANATE 500 MG TAB PO SCH ×2 (08:51→21:13)
[2022-09-07] MEDS: PANTOprazole 40 MG TAB PO SCH (08:52)
[2022-09-07] MEDS: TAMSULOSIN HCL 0.4 MG CAP PO SCH (08:52)
--- NOTE | 2022-09-07 12:10 | Electrocardiogram Report ---
Test Reason : Blood Pressure : / mmHG Vent. Rate : 099 BPM Atrial Rate : 099 BPM P-R Int : 244 ms QRS Dur : 086 ms QT Int : 340 ms P-R-T Axes : 037 -04 005 degrees QTc Int : 436 ms Sinus rhythm with 1st degree A-V block Cannot rule out Inferior infarct , age undetermined Abnormal ECG When compared with ECG of 05-FEB-2020 13:59, WI interval has increased Minimal criteria for Inferior infarct are now Present Confirmed by Shahab Khan ([id number]) on 09/07/2022 12:10:08 PM Referred By: REFERRED SELF Confirmed By:Beny Khan
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
[2022-09-07] MEDS: HEPARIN SOD 5,000 UNIT/0.5 ML VIAL SQ SCH (21:18)
[2022-09-08 04:30] LABS: Hematocrit (blood only) 34.5 % (42.0-52.0); Hemoglobin 11.8 g/dl (14.0-18.0); Mean Corpuscular Hgb Conc 34.2 g/dL (32.0-36.0); Mean Corpuscular Volume 93.5 fL (80.0-100.0); Mean Platelet Volume 10.6 fL (9.4-12.4); Platelet Count 230 K/uL (130-400); RDW Coefficient of Variation 13.3 % (11.5-14.5); RDW Standard Deviation 45.9 fL (36.4-46.3); Red Blood Count 3.69 M/uL (4.70-6.10)
[2022-09-08 04:37] LABS: Albumin Level 3.3 gm/dl (3.4-5.0); Calcium 8.1 mg/dl (8.6-10.3); Potassium 4.4 mmol/L (3.5-5.1)
[2022-09-08 04:46] LABS: Creatinine Clr Calc Pharmacy 15.8 ml/min; Est GFR (African American) 12.9 ml/min; Est GFR (Non-African American) 11.1 ml/min; Phosphorus 4.2 mg/dl (2.5-4.9)
[2022-09-08] MEDS: CALCITRIOL 0.25 MCG CAPSULE PO SCH ×2 (08:26→09:54)
[2022-09-08] MEDS: SUCRALFATE 1 GM TAB PO SCH (08:26)
[2022-09-08] MEDS: METOPROLOL TARTRATE 100 MG TAB PO SCH (08:26)
[2022-09-08] MEDS: AMOXICILLIN/CLAVULANATE 500 MG TAB PO SCH (08:26)
[2022-09-08] MEDS: FINASTERIDE 5 MG TAB PO SCH (08:26)
[2022-09-08] MEDS: SODIUM BICARBONATE 650 MG TAB PO SCH (08:27)
[2022-09-08] MEDS: PANTOprazole 40 MG TAB PO SCH (08:27)
[2022-09-08] MEDS: TAMSULOSIN HCL 0.4 MG CAP PO SCH (08:27)
[2022-09-08] MEDS: HEPARIN SOD 5,000 UNIT/0.5 ML VIAL SQ SCH (08:27)
[2022-09-08] MEDS: INSULIN ASPART PER UNIT CHARGE SC SCH (08:39)
--- NOTE | 2022-09-08 10:22 | Discharge Summary ---
Discharge Summary Date of Service September 08, 2022 Admission HPI Per Admitting Provider Mr. Linwood Milton is a 76yo male with history of CKD, DM, HTN, HLP and BPH presenting with worsening renal function. Patient follows with Nephrology for his CKD. Last seen on 06/22/22. He has CKD stage G4/A3 with baseline Cr of 3-4 secondary to diabetic nephropathy and hypertensive nephrosclerosis. He has had a LUE AV fistula placed in preparation for renal replacement therapy but has not yet undergone hemodialysis. Mr. Milton developed infections diarrhea on 08/29/22. He was started on Augmentin on 08/31/22. He was admitted to [facility] in [place] from 09/03/22 - 09/05/22 with acute on chronic renal failure, acute uncomplicated diverticulitis and sinus tachycardia. Patient was continued on Augmentin and Flagyl for acute diverticulitis. His Metoprolol was increased from 25mg po BID to 100mg po BID and his NaHCO3 was increased from 650mg po BID to 1300mg po BID. He was discharged home on 09/05/22 with instruction to have a followup BMP and see his PCP. Patient called Dr. Tomlinson today 09/06/22 and had a BMP performed. He was notified of the results and instructed to report to the ER for admission for worsening renal function - BUN of 72 and Cr of 5.19. In the ER patient is afebrile, hypertensive with elevated heart rate of 98. He is complaining of generalized weakness as well as some SOB. He denies fever, chills, body aches. Denies chest pain, palpitations, cough. Denies abdominal pain, nausea, vomiting, diarrhea or constipation. He reports that he is urinating a normal amount without difficulty passing urine. He denies dysuria, hematuria or foamy urine. No additional complaints at this time. ER Course: LR at 125mL/hr x 1 L Admission Exam Per Admitting Provider General: patient resting comfortably, NAD, non-toxic in appearance, AA&O x 4 Skin: warm, dry, intact, no rashes or lesions HEENT: NC/AT, PERRL, EOMI, anicteric sclera, conjunctiva without injection, external ear normal to inspection and nontender, nares patent, moist mucus membranes, dentition intact, no oropharyngeal lesions, neck supple, trachea midline, no LAD, no thyromegaly, no JVD Heart: +S1/S2, regular, no m/r/g Lungs: equal air entry bilaterally, no rales/rhonchi/wheezes Abd: +BS, soft, NT/ND, no masses/organomegaly/ascites Ext: warm, 2+ pulses in UE/LE bilaterally, no clubbing/cyanosis, trace pitting edema of bilateral LE Neuro: nonfocal, patient AA&O x 4, speech intact, no facial droop, moving all extremities on command with equal strength 5/5 Principal Dx & Hospital Course #1 = Principal Diagnosis (1) SERENE (acute kidney injury): Linwood Milton is a 76 yo male presenting with SERENE on CKD. Patient with history of CKD IV with baseline Cr of 3-4, recent hospitalization at [facility] for diverticulitis admitted with worsening renal function. BUN of 72 and Cr of 5.19-> 4.7. Electrolytes and metabolic profile are otherwise acceptable with K of 4.4. Patient reports he is urinating without difficulty. Urinalysis with 2+ protein, trace glucose, 1+ blood with no RBCs detected. Renal US without evidence of obstruction. Suspect dehydration/prerenal with possible new baseline, did receive some IVF which has since been discontinued in favor of PO intake. Avoid nephrotoxic agents. Continue Calcitriol, NaHCO3 1300mg po BID home dosing. Nephrology consultation appreciated, given creatinine improving and has close Nephro follow up, stable for discharge. Can resume home furosemide at decreased dose (from 20 BID to 20 daily for now with close fluid monitoring). (2) Diverticulitis: Patient with recently diagnosed acute uncomplicated diverticulitis. He is presently on Augmentin and Metronidazole (Augmentin started 08/31). Was also on metronidazole, however do not feel that double-anaerobic coverage is necessary so d/c'ed metronidazole. Continue Augmentin through 09/11 per last hospitalization notes. No complaints of abdominal pain, nausea, diarrhea at this time. (3) Hypertension: Chronic. Hypertensive on arrival, cont metoprolol 100mg po BID, consider transition to different agent if still hypertensive (started on this for sinus tachy at outside facility). (4) Diabetes mellitus type 2 in obese: Fairly well controlled. Last CwaS2H=8.9 on 06/11/22. Patient is on dulaglutide as well as insulin degludec outpatient, continue home medications. (5) Hyperlipidemia: Chronic. Stable. Continue Atorvastatin 20mg po qHS. (6) GERD (gastroesophageal reflux disease): Chronic. Stable. Continue Protonix 40mg po daily, Sucralfate. (7) BPH (benign prostatic hyperplasia): Chronic. Stable -Continue Tamsulosin -Continue Dutasteride Discharge Exam Constitutional WD/WN, vitals as above Respiratory normal respiratory effort, lungs clear to auscultation Cardiovascular RRR, no murmur, mild pitting edema to bilateral LE, no different from patient's normal per his report Updated Medication List Medication Instructions Recorded Confirmed Type ferrous sulfate 325 mg (65 mg 325 mg PO BID 10/29/17 09/06/22 History iron) tablet pentosan polysulfate sodium 100 mg 100 mg PO BID 08/29/20 09/06/22 History capsule (Elmiron) tamsulosin 0.4 mg capsule 0.4 mg PO QAM #90 caps 03/10/21 09/06/22 Rx dutasteride 0.5 mg capsule 0.5 mg PO QAM #90 caps 06/26/21 09/06/22 Rx (Avodart) FreeStyle Lite Strips (blood sugar #200 ea 10/25/21 06/22/22 Rx diagnostic) allopurinol 100 mg tablet 100 mg PO QPM #90 tabs 01/01/22 09/06/22 Rx nystatin 100,000 unit/gram topical 1 applic topical TID PRN Skin 03/07/22 09/06/22 Rx powder Irritation #30 grams pen needle, diabetic 32 gauge x #400 ea 03/07/22 06/22/22 Rx 5/32" (BD Ultra-Fine Shira Pen Needle) calcitriol 0.25 mcg capsule 0.25 mcg PO DAILY #90 caps 03/09/22 09/06/22 Rx insulin degludec 200 unit/mL (3 22 - 25 unit (0.11 - 0.125 mL) 04/05/22 09/06/22 Rx mL) subcutaneous pen (Tresiba subcut HS #9 SYRINGES FlexTouch U-200 insulin) sucralfate 1 gram tablet 1,000 mg PO QID 90 days #360 tabs 04/09/22 09/06/22 Rx peg 400-propylene glycol 0.4 %-0.3 1 drp ophthalmic (eye) QID 06/13/22 09/06/22 History % eye drops (Systane (propylene glycol)) furosemide 20 mg tablet 20 mg PO QAM #90 tabs 07/09/22 09/06/22 Rx pantoprazole 40 mg tablet,delayed 40 mg PO QAM #90 tabs 08/10/22 09/06/22 Rx release dulaglutide 1.5 mg/0.5 mL 1.5 mg (0.5 mL) subcut WK #2 mL 08/15/22 09/06/22 Rx subcutaneous pen injector (Trulicity) amoxicillin 500 mg-potassium 1 tab PO BID 09/06/22 09/06/22 History clavulanate 125 mg tablet (Augmentin) atorvastatin 20 mg tablet 20 mg PO HS #90 tabs 09/06/22 09/06/22 Rx metoprolol tartrate 100 mg tablet 100 mg PO BID #90 tabs 09/06/22 09/06/22 Rx sodium bicarbonate 650 mg tablet 1,300 mg PO BID #90 tabs 09/06/22 09/06/22 Rx Hospital Stay Data Consultations 09/06/22 20:23 ED Decision to Admit Stat 09/06/22 23:34 Consult Nephrology Routine Diagnostic Imagining Performed 09/06/22 20:48 US Kidney Bladder [US renal/blad retro comp] Stat Pending Results Patient Have Any Pending Studies at Discharge: No Discharge Instructions Given to Patient (Per Discharging Provider) You were admitted to the hospital for evaluation of elevation in creatinine, marker of kidney function. You were given IV fluids and your creatinine started to improve, and was 4.7 on your day of discharge. This is not back to your normal, however nephrology felt that if you are feeling well we can have close follow-up with you and continue to monitor your lab work. We recommend that you not take your furosemide today, and tomorrow can start taking 20 milligrams daily. Keep an eye on your fluid status and your leg swelling, and if it is getting worse let Dr. Tomlinson know. You should take the metoprolol, 100 milligrams twice daily, and follow up your blood pressure with the kidney doctor. Regarding your antibiotics for diverticulitis, you can stop the metronidazole, but should continue the Augmentin until 09/11. If you have any worsening in abdominal pain, chest pain, trouble breathing, or other urgent medical concerns, please come to the ER for evaluation. Otherwise, please direct all other medical questions to your heart, kidney, and family doctors. Total Time Total Time Spent Total Time Spent (In Minutes): 40 min Coding Level of Care Code 81582 INP/OBS DISCH >30 MIN Diagnoses SERENE (acute kidney injury) N17.9 Diverticulitis K57.92 Hypertension I10 Hypertension type: essential hypertension Diabetes mellitus type 2 in obese E11.69; E66.9 Hyperlipidemia E78.5 GERD (gastroesophageal reflux disease) K21.9 BPH (benign prostatic hyperplasia) N40.0
--- NOTE | 2022-09-08 10:50 | Nephrology Progress Note ---
Date of Service September 08, 2022 Assessment & Plan (1) SERENE (acute kidney injury): Plan: Creatinine relatively stable/improved. SERENE due to volume depletion and ATN. Volume status acceptable. Some increased fluid retention in lower extremities noted. Electrolytes acceptable. Good urine output. No notable uremic symptoms. No emergent indication for dialysis. Plan discharge today with close outpatient follow up. Continue NaHCO3 650mg po BID. (2) Chronic kidney disease, stage 4 (severe): Plan: CKD IV A3. Baseline creatinine ~4 mg/dL. Urine acellular. 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 h/o L ureteral obstruction due to uric acid kidney stone. Close outpatient follow up will be required. Linwood will have labs on September 11. He has follow up with Dr. Tomlinson in the nephrology clinic on September 11. Continue low potassium diet and dietary sodium and fluid restriction. Continue to hold NAYELI/ARB. Resume furosemide at reduced dose of 20 mg daily tomorrow. L BC AVF created 10/04/20 with transposition performed 11/25/20 is mature for use. Continue calcitriol as Rx. (3) Hyponatremia: Plan: Free water restriction reviewed. Resume furosemide tomorrow. (4) Diverticulitis: Plan: Plan to continue Augmentin through 09/09 for total of 10 days of therapy. Symptoms resolved. (5) Metabolic acidosis: Plan: Continue NaHCO3 supplement. (6) Anemia: Plan: Iron stores acceptable. Continue PO ferrous sulfate. (7) Hypertension: Plan: BP acceptable. Continue metoprolol 100 mg BID. Resume furosemide as above. Avoid NAYELI/ARB due to kidney dysfunction. (8) BPH (benign prostatic hyperplasia): Plan: Symptoms controlled with Tamsulosin and dutasteride. Admission and Anticipated Discharge Date Admission Date: September 06, 2022 Subjective No acute events overnight. Linwood was seen and evaluated with Dr. Smith this morning. He feels well and wants to go home. GI symptoms have resolved. No fevers or chills. Reports feeling slightly tired but otherwise no complaints. Appetite is good. Stable lower extremity edema. Breathing comfortably. Discharge plan reviewed. Review of Systems Review of Systems: All systems reviewed & are unremarkable except as noted in HPI & below Physical Exam Constitutional: well developed; no acute distress Eyes: no scleral abnormality and no corneal abnormality ENMT: Mouth: no oral mucosal abnormality and oral mucous membranes not dry Neck: normal visual inspection and trachea midline Respiratory: normal respiratory effort Auscultation: lungs clear to auscultation bilaterally Cardiovascular: Rate/Rhythm: regular rate Heart Sounds: normal S1 and normal S2 Extremities: + edema and + AV fistula Musculoskeletal: Extremities: no cyanosis and no clubbing Skin: normal turgor; no jaundice Neurologic: Motor/Sensory: no tremor and no asterixis Psychiatric: Orientation: alert and oriented x 3 Results & Data Vital Signs (Past 12 Hours) Vital Signs Temp Pulse Resp BP Pulse Ox O2 Del Method 09/08/22 08:01 36.6 C 93 H 18 158/84 H 94 Room Air 09/08/22 03:17 36.7 C 84 18 152/79 H 91 Room Air 09/07/22 23:53 84 18 143/79 H 94 Room Air Laboratory Results Laboratory Results - last 24 hr 09/07/22 09/07/22 09/07/22 12:01 16:21 20:04 WBC RBC Hgb Hct MCV MCH MCHC RDW Std Deviation RDW Coeff of Dorothy Plt Count MPV Sodium Potassium Chloride Carbon Dioxide Anion Gap BUN Creatinine Est Cr Clr Drug Dosing Est GFR ( Amer) Est GFR (Non-Af Amer) BUN/Creatinine Ratio Glucose POC Glucose 93 79 105 H Calcium Phosphorus Iron TIBC Unsaturated IBC Transferrin % Sat Ferritin Albumin 09/08/22 09/08/22 09/08/22 03:54 03:54 05:53 WBC 8.60 RBC 3.69 L Hgb 11.8 L Hct 34.5 L MCV 93.5 MCH 32.0 MCHC 34.2 RDW Std Deviation 45.9 RDW Coeff of Dorothy 13.3 Plt Count 230 MPV 10.6 Sodium 130 L Potassium 4.4 Chloride 105 Carbon Dioxide 15 L Anion Gap 10 BUN 66 H Creatinine 4.71 H* Est Cr Clr Drug Dosing 15.8 Est GFR ( Amer) 12.9 Est GFR (Non-Af Amer) 11.1 BUN/Creatinine Ratio 14.0 Glucose 68 L POC Glucose Calcium 8.1 L Phosphorus 4.2 Iron 40 TIBC 149 L Unsaturated IBC 109 L Transferrin % Sat 27 Ferritin Cancelled 721.7 H Albumin 3.3 L 09/08/22 07:58 WBC RBC Hgb Hct MCV MCH MCHC RDW Std Deviation RDW Coeff of Dorothy Plt Count MPV Sodium Potassium Chloride Carbon Dioxide Anion Gap BUN Creatinine Est Cr Clr Drug Dosing Est GFR ( Amer) Est GFR (Non-Af Amer) BUN/Creatinine Ratio Glucose POC Glucose 75 Calcium Phosphorus Iron TIBC Unsaturated IBC Transferrin % Sat Ferritin Albumin PG Care Time/CCT Total # of Minutes Spent Total Time Spent with Patient: Total time spent is greater than 50% in coordination of care (as documented) at patient's floor/unit and/or counseling patient: Coding Level of Care Code 93904 SUB INP/OBS CARE 3/50MIN Diagnoses SERENE (acute kidney injury) N17.9 Chronic kidney disease, stage 4 (severe) N18.4 Hyponatremia E87.1 Diverticulitis K57.92 Metabolic acidosis E87.2 Anemia D64.9 Hypertension I10 Hypertension type: essential hypertension BPH (benign prostatic hyperplasia) N40.0 (7) Hypertension Hypertension type: essential hypertension Qualified Code(s): I10 - Essential (primary) hypertension
[2022-09-11 10:52] LABS: Urea Nitrogen, Random Urine 349 mg/dL
== END 2022-09-08 12:34 | disposition home or self-care (01) | DRG 683 ==
LOC: ED 18:50 → SUATTDRO 20:48 → 4W 20:48 → INTOOBSV 20:48 → 4W 23:03

== ENCOUNTER 2022-10-23 00:24 | Inpatient (IN) ==
[2022-10-23 01:20] LABS: Basophils # (auto) 0.03 K/uL (0.00-0.20); Basophils % (auto) 0.3 %; Eosinophils # (auto) 0.14 K/uL (0.00-0.50); Eosinophils % (auto) 1.3 %; Hematocrit (blood only) 32.1 % (42.0-52.0); Hemoglobin 10.7 g/dl (14.0-18.0); Immature Granulocytes # (auto) 0.03 K/uL (0.01-0.20); Immature Granulocytes % (auto) 0.3 %; Lymphocytes # (auto) 1.32 K/uL (1.20-3.40); Lymphocytes % (auto) 12.3 %; Mean Corpuscular Hemoglobin 30.7 pg (25.0-34.0); Mean Corpuscular Hgb Conc 33.3 g/dL (32.0-36.0); Mean Corpuscular Volume 92.2 fL (80.0-100.0); Mean Platelet Volume 10.4 fL (9.4-12.4); Monocytes # (auto) 0.71 K/uL (0.11-0.59); Monocytes % (auto) 6.6 %; Neutrophils # (auto) 8.46 K/uL (1.40-6.50); Neutrophils % (auto) 79.2 %; Platelet Count 113 K/uL (130-400); RDW Coefficient of Variation 13.2 % (11.5-14.5); RDW Standard Deviation 44.4 fL (36.4-46.3); Red Blood Count 3.48 M/uL (4.70-6.10); White Blood Count 10.69 K/ul (4.8-10.8)
[2022-10-23 01:24] LABS: Alanine Aminotransferase 10 U/L (7-52); Albumin Level 3.4 gm/dl (3.4-5.0); Alkaline Phosphatase 73 U/L (34-104); Anion Gap 8 (3-11); Aspartate Aminotransferase 12 U/L (13-39); BUN Creatinine Ratio 9.7 (10-20); Bilirubin,Total 0.6 mg/dl (0.2-1.0); Blood Urea Nitrogen 27 mg/dl (6-23); Calcium 9.2 mg/dl (8.6-10.3); Carbon Dioxide 28 mmol/L (21-32); Chloride 99 mmol/L (98-107); Est GFR (African American) 24.4 ml/min; Est GFR (Non-African American) 21.1 ml/min; Globulin 3.5 gm/dl (2.5-4.0); Glucose 137 mg/dl (70-99(Fasting)); Potassium 4.6 mmol/L (3.5-5.1); Sodium 135 mmol/L (136-145); Total Protein 6.9 gm/dl (6.0-8.3)
[2022-10-23 01:42] LABS: Partial Thromboplastin Time 27.3 Seconds (21.0-31.0); Prothrombin Time 11.4 Seconds (9.0-12.0)
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
[2022-10-23] MEDS ORDERED: MoRPHine SULFATE 4 MG/ML 1 ML CARP\\VIAL IV STA ×2 (03:12→04:27)
[2022-10-23] MEDS ORDERED: IOVERSOL 350 MG 125mL Prefilled Syringe IV ONE ×2 (03:41→17:38)
--- NOTE | 2022-10-23 04:55 | CT Scan Report ---
Exam(s): CTA CHEST IV Amt: 105 ml optiray 350 EXAM: CT Angiography Chest With Intravenous Contrast CLINICAL HISTORY: Evaluate for PE. TECHNIQUE: Axial computed tomographic angiography images of the chest with intravenous contrast. CTDI is 28.14 mGy and DLP is 908.2 mGy-cm. Automated exposure control was utilized for the study. A dose lowering technique was utilized adhering to the principles of ALARA. MIP reconstructed images were created and reviewed. COMPARISON: No relevant prior studies available. FINDINGS: Limitations: There is respiratory artifact, which degrades image quality on multiple image slices. Pulmonary arteries: Evaluation of the pulmonary artery tree is markedly degraded by extensive respiratory artifact, particularly in the lung bases. The majority of the distal subsegmental pulmonary artery branches are of nondiagnostic quality. Accounting for limitations, there is no definite large/central pulmonary emboli. Aorta: The thoracic aorta is normal in caliber without dissection. Lungs: Subsegmental curvilinear changes in the inferior aspect of both lung bases is noted. No lobar consolidation. Pleural space: Trace subcentimeter layering left pleural effusion. No loculation. No pneumothorax. Heart: The cardiac chambers are mildly enlarged. Small pericardial effusion is noted in this is of intermediate density. Bones/joints: The left total shoulder arthroplasty is noted. No acute fracture. No dislocation. Soft tissues: Unremarkable. Lymph nodes: Unremarkable. No enlarged lymph nodes. IMPRESSION: 1. Evaluation of the pulmonary artery tree is markedly degraded by extensive respiratory artifact, particularly in the lung bases. The majority of the distal subsegmental pulmonary artery branches are of nondiagnostic quality. Accounting for limitations, there is no definite large/central pulmonary emboli. 2. Trace subcentimeter layering left pleural effusion. No loculation. 3. The cardiac chambers are mildly enlarged. Small pericardial effusion is noted in this is of intermediate density. This suggests proteinaceous or hemorrhagic components. 4. Subsegmental curvilinear changes in the inferior aspect of both lung bases is noted. No lobar consolidation. No pneumothorax. Electronically signed by: Alphonso Velasquez MD 10/23/22 04:54 AM
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
[2022-10-23] MEDS ORDERED: ACETAMINOPHEN 325 MG TAB PO PRN (06:26)
[2022-10-23] MEDS ORDERED: ONDANSETRON INJ 2 MG/ML 2 ML VIAL IV PRN (06:26)
--- NOTE | 2022-10-23 06:54 | XRay Report ---
XR chest 1V portable CLINICAL HISTORY: Chest pain, nonspecific COMPARISON STUDY: Chest radiograph September 11, 2022. FINDINGS: Left shoulder arthroplasty is incidentally noted. No pneumothorax or pleural effusion is pr esent. Low lung volumes are unchanged. Cardiomegaly is unchanged. There is no evidence for pulmonary edema. No consolidation is identified to suggest pneumonia. Linear left basilar densities favor atele ctasis or scarring. IMPRESSION: No acute cardiopulmonary findings. No significant change in appearance of the chest. ACT 112: Negative or not required by law. Electronically signed by: Pablo Owusu M.D. 10/23/2022 6:52 AM
[2022-10-23 07:15] LABS: Uric Acid 3.7 mg/dl (2.6-7.2)
[2022-10-23] MEDS: PENTOSAN POLYSULFATE SODIUM 100 MG CAP PO SCH ×2 (08:15→20:33)
[2022-10-23] MEDS: SUCRALFATE 1 GM TAB PO SCH ×4 (08:16→22:16)
[2022-10-23] MEDS: FERROUS SULFATE 325 MG TAB PO SCH ×2 (08:17→20:32)
[2022-10-23] MEDS: PANTOprazole 40 MG TAB PO SCH (08:17)
[2022-10-23] MEDS: CALCITRIOL 0.25 MCG CAPSULE PO SCH (08:17)
[2022-10-23] MEDS: TAMSULOSIN HCL 0.4 MG CAP PO SCH (08:17)
[2022-10-23] MEDS: FUROSEMIDE 20 MG TAB PO SCH (08:17)
[2022-10-23] MEDS: METOPROLOL TARTRATE 100 MG TAB PO SCH ×2 (08:17→20:40)
[2022-10-23] MEDS: SODIUM BICARBONATE 650 MG TAB PO SCH ×2 (08:18→20:33)
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
--- NOTE | 2022-10-23 11:15 | XCELERA ---
[id number] \\[id number]
[2022-10-23] MEDS ORDERED: SODIUM CHLORIDE 0.9% 500 ML IV SCH (16:30)
--- NOTE | 2022-10-23 17:59 | CT Scan Report ---
UNENHANCED CT OF THE BRAIN; CT ANGIOGRAM OF THE BRAIN; CT ANGIOGRAM OF THE NECK CLINICAL HISTORY: Aphasia. COMPARISON STUDY: No priors. TECHNIQUE: Unenhanced axial CT scan of the brain is performed. Subsequently, following the IV adminis tration of 113 of [address] 350, CT angiogram of the head and neck was performed from the aortic arch t o the vertex. Images are reviewed in the axial, sagittal, and coronal planes. 3-D MIPS images are cre ated and assessed. IV contrast was administered without complication. All measurements were calculate d based on NASCET criteria. A dose lowering technique was utilized adhering to the principles of ALA RA. The neck angiogram is degraded by motion artifact. CT DOSE: 1376.70 mGy.cm FINDINGS: Brain parenchyma: There is age-related involutional change noting igyg-ob-plnawgms subcortical and pe riventricular microangiopathic disease. There is no hemorrhage, mass effect, or evidence of acute ter ritorial ischemia by CT criteria. There is no evidence of enhancing mass lesion on the angiogram phas e images. The ventricles, sulci, and cisterns are prominent secondary to involutional change. Yanez-wh ite matter differentiation is preserved. No extra-axial fluid collection is seen. Thoracic aorta: There is moderate atherosclerotic calcification of the thoracic aorta. Visualized por tions of the thoracic aorta are normal in caliber. The aortic arch demonstrates standard 3-vessel ofelia yasemin. Right carotid arterial system: The right common carotid artery is widely patent, as are the right int ernal and external carotid arteries. Left carotid arterial system: The left common carotid artery is widely patent, as are the left internet network specialist al and external carotid arteries. Minimal calcified plaque is seen in the carotid bulb. Vertebral arteries: The vertebral arteries are widely patent bilaterally and codominant. Subclavian arteries: Widely patent bilaterally. Intracranial vasculature: There is atherosclerotic calcification of the cavernous carotid and vertebr al arteries. The internal carotid arteries are patent at the skull base, as are the anterior and midd le cerebral arteries bilaterally. The vertebrobasilar system and posterior cerebral arteries are wide ly patent. The vertebral arteries are codominant. There is no aneurysm, high-grade stenosis, or focal vessel cut off seen throughout the intracranial circulation. Jugular veins: Patent bilaterally. Dural sinuses: Patent. Lung apices: Partially visualized upper lobe lung parenchyma appears clear. Soft tissues: The visualized pharyngeal soft tissues are normal in appearance noting angiographic pha se technique. The oropharyngeal airway appears widely patent. The salivary and thyroid glands are nor mal in appearance. No cervical lymphadenopathy is seen. Skeletal structures: The skeletal structures are osteopenic. The calvarium appears intact. The cervic al spine is maintained noting multilevel spondylosis. A left shoulder arthroplasty is in place. Orbits: The bony orbits are intact. Orbital contents are normal as visualized noting bilateral ocular lens implants. Sinuses and mastoids: There is trace mucosal thickening in the right maxillary antrum. The remaining paranasal sinuses are clear. The mastoid air cells are well pneumatized. IMPRESSION: 1. There is no hemorrhage, mass effect, or evidence of acute territorial ischemia by CT criteria. 2. Unremarkable CT angiogram brain. 3. Unremarkable CT angiogram of the neck. ACT 112: Negative or not required by law. Electronically signed by: Conor Dick M.D. 10/23/2022 5:56 PM
[2022-10-23] MEDS ORDERED: ASPIRIN 325 MG ECTAB PO STA (18:18)
[2022-10-23 18:43] LABS: Hemoglobin 10.3 g/dl (14.0-18.0); Mean Corpuscular Hemoglobin 30.9 pg (25.0-34.0); Mean Corpuscular Hgb Conc 33.2 g/dL (32.0-36.0); Mean Corpuscular Volume 93.1 fL (80.0-100.0); Mean Platelet Volume 11.1 fL (9.4-12.4); Platelet Count 110 K/uL (130-400); RDW Coefficient of Variation 13.1 % (11.5-14.5); RDW Standard Deviation 45.1 fL (36.4-46.3); Red Blood Count 3.33 M/uL (4.70-6.10)
[2022-10-23 18:59] LABS: Base Excess VBG 0.5 mEq/L; HCO3 VBG 26 mmol/L; Oxygen Saturation VBG < 60.0 %; PCO2 VBG 44 mmHg (38-50); PO2 VBG 22 mmHg; pH VBG 7.38 (7.36-7.41)
[2022-10-23 19:01] LABS: Calcium 8.7 mg/dl (8.6-10.3); Magnesium 1.5 mg/dl (1.7-2.4); Potassium 4.6 mmol/L (3.5-5.1)
[2022-10-23 19:07] LABS: BUN Creatinine Ratio 9.9 (10-20); C Reactive Protein 15.57 mg/dl (0-0.5); Creatinine Clr Calc Pharmacy 21.2 ml/min; Est GFR (African American) 18.7 ml/min; Est GFR (Non-African American) 16.2 ml/min
[2022-10-23 19:17] LABS: Phosphorus 1.4 mg/dl (2.5-4.9); Troponin I High Sensitivity 18.4 pg/ml (0-20)
[2022-10-23] MEDS ORDERED: SODIUM PHOSPHATE 3 MMOL/1 ML INFUSION IV STA (19:18)
[2022-10-23] MEDS ORDERED: SODIUM CHLORIDE 0.9% 250 ML IV ONE (19:23)
[2022-10-23] MEDS ORDERED: SODIUM PHOSPHATE 24 MMOL in SODIUM CHLORIDE 0.9% 500 ML IV ONE (19:45)
--- NOTE | 2022-10-23 20:07 | Magnetic Resonance Report ---
MRI OF THE BRAIN WITHOUT IV CONTRAST CLINICAL HISTORY: Aphasia COMPARISON STUDY: CT of the brain dated 10/23/2022. TECHNIQUE: MRI of the brain was performed utilizing various T1 and T2-weighted sequences in the axial , sagittal, and coronal planes. IV contrast was not administered for this examination. FINDINGS: Brain parenchyma: There is age-related involutional change minimal microangiopathic is. There is no h emorrhage or mass effect. There is a punctate focus of restricted diffusion identified in the left pe riventricular white matter. This likely represents a tiny acute to subacute lacunar infarct. No addit ional foci of restricted diffusion are identified. There is no hemorrhage or mass effect. No extra-ax ial fluid collection is seen. The cerebellar tonsils are normal in configuration. Ventricles, sulci, and cisterns: Prominent secondary to involutional change. Pituitary and sella: Unremarkable. Intracranial vasculature: Normal flow voids are maintained at the skull base. Orbits: The bony orbits are grossly intact. Orbital contents are normal in appearance noting bilatera l ocular lens implants. Sinuses and mastoids: Clear. Calvarium: Unremarkable. Cervical cord: Partially visualized cervical spinal cord is normal in morphology and signal intensity . IMPRESSION: 1. There is a punctate focus of restricted diffusion seen in the left periventricular white matter. T his likely represents a tiny acute to subacute lacunar infarct. 2. No additional foci of restricted diffusion are identified. 3. There is no hemorrhage or mass effect. ACT 112: Negative or not required by law. Electronically signed by: Conor Dick M.D. 10/23/2022 8:06 PM
--- NOTE | 2022-10-23 20:10 | Billing Data ---
Date of Service October 23, 2022 Coding Level of Care Code 24561 INT INP/OBS CARE
[2022-10-23] MEDS: FOLIC ACID 1 MG TAB PO SCH (20:30)
[2022-10-23] MEDS: allopurinoL 100 MG TAB PO SCH (20:32)
[2022-10-23] MEDS: ATORVASTATIN 20 MG TAB PO SCH (20:32)
--- NOTE | 2022-10-23 21:12 | Hospitalist Progress Note ---
Date of Service October 23, 2022 Assessment & Plan (1) Lacunar stroke, acute: Plan: Patient became aphasic, stroke alert called on 10/24 He was having word finding problems. NIH stroke scale 3. Stroke alert was called. CT head and CTA hea/neck were nagetive. Tele stroke provider did not recommend tPA given patient had mild symptoms. Likely lacunar infarct as he is diabetic. Will order ASA 325 mgx1. MRI brain. folate 2mg as await homocysteine results, if level less than 10, ok to stop folate. (2) Chest pain: Plan: 76 year old male w/ PmHx ESRD on dialysis MWF, T2DM, GERD, BPH, HTN admitted for chest pain rule out. Chest pain: -EKG NSR without ST elevation or depression, T wave inversion in V1 and aVR however these are not new. -Troponin 10.0, repeat 6.0. -CTA chest without any evidence for PE, small pericardial effusion. -Ordered complete echo to rule out wall motion abnormalities, pericardial effusion. -Holding off on treatment of small pericardial effusion seen on CT until US results back. -Given negative trop and EKG without acute changes, less likely NH. -Consulted cardiology, will appreciate recs. -Admit to med/tele. ESRD on HD: -On HD MWF, had received HD yesterday. -Received contrast in the ED this past night for CTA. -Consulted nephro for HD management given contrast use. T2DM: -Holding home diabetes medications while on obs. If patient here for more than [address] on basal and SSI. GERD: -Continue home pantoprazole. HLD: -continue home atorvastatin. Anemia: -Hgb 10.7 on admission, slightly lower than baseline 11-12. -Can continue to monitor with daily CBC if admitted for more than 1 day. BPH: -Continue home tamsulosin. F/E/N/GI: Renal HD diet. DVT prophylaxis: patient able to ambulate less likely NH, no chemoprophylaxis at this time Code status: Full code Dispo: Med/tele obs. (3) Diabetes mellitus type 2 in obese: (4) GERD (gastroesophageal reflux disease): (5) Hyperlipidemia: (6) Hypertension: (7) Chronic kidney disease, stage 4 (severe): (8) BPH (benign prostatic hyperplasia): (9) Anemia: Admission and Anticipated Discharge Date Admission Date: October 23, 2022 Subjective Patient with mild aphasia, with word finding. Review of Systems Review of Systems: All systems reviewed & are unremarkable except as noted in HPI & below Physical Exam Physical Exam: No focal deficits, not able to strt year of . Results & Data Results & Data Vital Signs (Past 12 Hours) Vital Signs Temp Pulse Pulse Resp BP Pulse Ox O2 Del Method 10/23/22 20:39 119 H 102/56 L 10/23/22 19:34 37.1 C 112 H 18 112/60 94 Room Air 10/23/22 18:27 37.5 C 115 H 20 102/54 L 93 Nasal Cannula 10/23/22 16:52 108 H 10/23/22 16:41 116 H 22 121/65 90 Room Air 10/23/22 12:11 37.2 C 101 H 18 109/54 L 93 Room Air O2 Flow Rate 10/23/22 20:39 10/23/22 19:34 10/23/22 18:27 2 10/23/22 16:52 10/23/22 16:41 10/23/22 12:11 PG Care Time/CCT Total # of Minutes Spent Total Time Spent with Patient: Total time spent is greater than 50% in coordination of care (as documented) at patient's floor/unit and/or counseling patient: Coding Level of Care Code 34423 SUB INP/OBS CARE 2/35MIN Diagnoses Lacunar stroke, acute I63.81 Chest pain R07.9 Diabetes mellitus type 2 in obese E11.69; E66.9 GERD (gastroesophageal reflux disease) K21.9 Hyperlipidemia E78.5 Hypertension I10 Hypertension type: essential hypertension Chronic kidney disease, stage 4 (severe) N18.4 BPH (benign prostatic hyperplasia) N40.0 Anemia D64.9 (6) Hypertension Hypertension type: essential hypertension Qualified Code(s): I10 - Essential (primary) hypertension
[2022-10-23] MEDS: MAGNESIUM SULFATE / D5W 1 GM/100 ML BAG IV SCH (22:15)
[2022-10-23] MEDS ORDERED: SODIUM CHLORIDE 0.9% 1,000 ML IV ONE (22:56)
[2022-10-24] MEDS ORDERED: SODIUM CHLORIDE 0.9% 1,000 ML IV SCH (00:30)
[2022-10-24] MEDS: MAGNESIUM SULFATE / D5W 1 GM/100 ML BAG IV SCH ×3 (00:53→16:00)
[2022-10-24 06:55] LABS: Hematocrit (blood only) 31.4 % (42.0-52.0); Hemoglobin 10.3 g/dl (14.0-18.0); Mean Corpuscular Hemoglobin 30.7 pg (25.0-34.0); Mean Corpuscular Hgb Conc 32.8 g/dL (32.0-36.0); Mean Corpuscular Volume 93.5 fL (80.0-100.0); Mean Platelet Volume 10.9 fL (9.4-12.4); Platelet Count 113 K/uL (130-400); RDW Coefficient of Variation 13.4 % (11.5-14.5); RDW Standard Deviation 46.3 fL (36.4-46.3); Red Blood Count 3.36 M/uL (4.70-6.10); White Blood Count 20.68 K/ul (4.8-10.8)
[2022-10-24 07:16] LABS: BUN Creatinine Ratio 9.5 (10-20); Calcium 8.8 mg/dl (8.6-10.3); Creatinine Clr Calc Pharmacy 17.8 ml/min; Est GFR (African American) 15.2 ml/min; Est GFR (Non-African American) 13.1 ml/min; Magnesium 1.9 mg/dl (1.7-2.4); Potassium 4.1 mmol/L (3.5-5.1)
--- NOTE | 2022-10-24 09:59 | Nephrology Progress Note ---
Date of Service October 24, 2022 Assessment & Plan (1) ESRD (end stage renal disease): Plan: HD MWF. Orders for HD today entered into the EHR and reviewed with child support specialist. Treatment time extended to 4 hours to assist with UF. Gentle UF to avoid hypotension. Metoprolol held. Tolerating dialysis reasonably well. QB at goal. AVF functioning well. Renal diet and fluid restriction maintained. (2) Chest pain: Plan: Etiology unclear. Symptoms resolved. Cardiology consultation appreciated. CTA negative. No acute EKG changes or concerning elevation in cardiac enzymes. (3) Pericardial effusion: Plan: Small and stable. Not hemodynamically significant. (4) AV (arteriovenous fistula): Plan: AVF functioning reasonably well. Adequate clearance with treatment. Long needles. (5) Lacunar stroke, acute: Plan: Remains on tele monitor. Symptoms improving. Avoid hypotension. Remains on tele monitor. Sinus tachy without appreciable atrial fibrillation or flutter. Bubble study pending and carotid duplex. Admission and Anticipated Discharge Date Admission Date: October 23, 2022 Subjective Linwood developed acute aphasia yesterday afternoon. MRI demonstrating a small focus in the periventricular white matter consistent with a acute or subacute lacunar infarct. Linwood was generally answering questions appropriately this morning but admits to some word finding difficulty. He repeatedly stated 'September' when he assessed orientation to place. IVF provided overnight for hypotension. Linwood is breathing comfortably on 3 L NC this AM. He denies notable dyspnea. He denies any chest pains or palpitations. He remains in notable sinus tachycardia. Bubble study completed this AM. Linwood was seen and evaluated prior to and during hemodialysis. After a couple attempts, AVF was accessed with long needles. Qb at goal. BP low but acceptable. Linwood denies chest pains or palpitations. Review of Systems Review of Systems: All systems reviewed & are unremarkable except as noted in HPI & below Physical Exam Constitutional: well developed; no acute distress Eyes: no scleral abnormality and no corneal abnormality ENMT: Mouth: no oral mucosal abnormality and oral mucous membranes not dry Neck: normal visual inspection and trachea midline Respiratory: normal respiratory effort Auscultation: lungs clear to auscultation bilaterally Cardiovascular: Rate/Rhythm: regular rate Heart Sounds: normal S1 and normal S2 Extremities: + AV fistula; no edema Musculoskeletal: Extremities: no cyanosis and no clubbing Skin: normal turgor; no jaundice Neurologic: Motor/Sensory: no tremor and no asterixis Psychiatric: Orientation: alert and oriented x 3 Results & Data Vital Signs (Past 12 Hours) Vital Signs Temp Pulse Pulse Resp BP Pulse Ox O2 Del Method 10/24/22 09:15 36.9 C 84 10/24/22 07:32 37.5 C 130 H 20 105/60 94 Nasal Cannula 10/24/22 07:09 36.5 C 125 H 18 128/85 92 Nasal Cannula 10/23/22 22:07 100 H 10/24/22 02:38 37.1 C 107 H 18 134/76 91 Nasal Cannula 10/24/22 00:16 118/67 10/23/22 22:40 37.1 C 101 H 18 89/54 L 92 Nasal Cannula O2 Flow Rate 10/24/22 09:15 10/24/22 07:32 3 10/24/22 07:09 10/23/22 22:07 10/24/22 02:38 10/24/22 00:16 10/23/22 22:40 Laboratory Results Laboratory Results - last 24 hr 10/23/22 10/23/22 10/23/22 17:22 17:30 17:30 WBC 19.40 H RBC 3.33 L Hgb 10.3 L Hct 31.0 L MCV 93.1 MCH 30.9 MCHC 33.2 RDW Std Deviation 45.1 RDW Coeff of Dorothy 13.1 Plt Count 110 L MPV 11.1 VBG pH VBG pCO2 VBG pO2 VBG HCO3 VBG O2 Saturation VBG Base Excess Sodium 131 L Potassium 4.6 Chloride 97 L Carbon Dioxide 23 Anion Gap 11 BUN 34 H Creatinine 3.45 H D Est Cr Clr Drug Dosing 21.2 Est GFR ( Amer) 18.7 Est GFR (Non-Af Amer) 16.2 BUN/Creatinine Ratio 9.9 L Glucose 221 H POC Glucose 224 H Calcium 8.7 Phosphorus 1.4 L* Magnesium 1.5 L Troponin I High Sens 18.4 D C-Reactive Protein 15.57 H Homocysteine 10/23/22 10/23/22 10/24/22 18:50 18:50 06:11 WBC 20.68 H RBC 3.36 L Hgb 10.3 L Hct 31.4 L MCV 93.5 MCH 30.7 MCHC 32.8 RDW Std Deviation 46.3 RDW Coeff of Dorothy 13.4 Plt Count 113 L MPV 10.9 VBG pH 7.38 VBG pCO2 44 VBG pO2 22 VBG HCO3 26 VBG O2 Saturation < 60.0 VBG Base Excess 0.5 Sodium Potassium Chloride Carbon Dioxide Anion Gap BUN Creatinine Est Cr Clr Drug Dosing Est GFR ( Amer) Est GFR (Non-Af Amer) BUN/Creatinine Ratio Glucose POC Glucose Calcium Phosphorus Magnesium Troponin I High Sens C-Reactive Protein Homocysteine Pending 10/24/22 06:11 WBC RBC Hgb Hct MCV MCH MCHC RDW Std Deviation RDW Coeff of Dorothy Plt Count MPV VBG pH VBG pCO2 VBG pO2 VBG HCO3 VBG O2 Saturation VBG Base Excess Sodium 133 L Potassium 4.1 Chloride 98 Carbon Dioxide 22 Anion Gap 13 H BUN 39 H Creatinine 4.11 H D Est Cr Clr Drug Dosing 17.8 Est GFR ( Amer) 15.2 Est GFR (Non-Af Amer) 13.1 BUN/Creatinine Ratio 9.5 L Glucose 121 H POC Glucose Calcium 8.8 Phosphorus 3.0 D Magnesium 1.9 Troponin I High Sens C-Reactive Protein Homocysteine PG Care Time/CCT Total # of Minutes Spent Total Time Spent with Patient: Total time spent is greater than 50% in coordination of care (as documented) at patient's floor/unit and/or counseling patient: Coding Level of Care Code 63866 SUB INP/OBS CARE 3/50MIN Diagnoses ESRD (end stage renal disease) N18.6 Chest pain R07.9 Pericardial effusion I31.39 AV (arteriovenous fistula) I77.0 Lacunar stroke, acute I63.81
--- NOTE | 2022-10-24 10:28 | XCELERA ---
[id number] \\[email or web address]_[email or web address]\[id number]
[2022-10-24] MEDS: SUCRALFATE 1 GM TAB PO SCH ×3 (12:29→18:06)
[2022-10-24] MEDS ORDERED: METOPROLOL TARTRATE 100 MG TAB PO ONE (13:53)
[2022-10-24] MEDS ORDERED: MIDODRINE HCL 2.5 MG TAB PO STA (13:58)
[2022-10-24] MEDS: METOPROLOL TARTRATE 100 MG TAB PO SCH (14:10)
[2022-10-24] MEDS: FUROSEMIDE 20 MG TAB PO SCH (14:13)
[2022-10-24] MEDS: PENTOSAN POLYSULFATE SODIUM 100 MG CAP PO SCH (14:22)
[2022-10-24] MEDS: TAMSULOSIN HCL 0.4 MG CAP PO SCH (14:22)
[2022-10-24] MEDS: FOLIC ACID 1 MG TAB PO SCH (14:23)
[2022-10-24] MEDS: FERROUS SULFATE 325 MG TAB PO SCH (14:23)
[2022-10-24] MEDS: PANTOprazole 40 MG TAB PO SCH (14:23)
[2022-10-24] MEDS: ASPIRIN 81 MG ECTAB PO SCH (14:23)
[2022-10-24] MEDS: SODIUM BICARBONATE 650 MG TAB PO SCH (14:24)
[2022-10-24] MEDS: CALCITRIOL 0.25 MCG CAPSULE PO SCH (14:31)
[2022-10-24 16:00] LABS: Influenza A virus by PCR Negative (Neg); Influenza B virus by PCR Negative (Neg); RSV by PCR Negative (Neg); SARS CoV2 RNA(COVID-19) Ceph NEGATIVE (Negative)
[2022-10-24] MEDS ORDERED: ADENOSINE IV SOLN 3 MG/ML 2 ML VIAL IV STA ×2 (17:02→17:04)
[2022-10-24] MEDS ORDERED: ADENOSINE IV SOLN 3 MG/ML 2 ML VIAL IV ONE ×2 (17:05→17:06)
--- NOTE | 2022-10-24 17:11 | Cardiology Progress Note ---
Date of Service October 24, 2022 Assessment & Plan (1) Pericardial effusion: Plan: --Small, not hemodynamically significant; stable from 08/2022 2. ESRD on HD 3. Atypical chest pain 4. Type 2 diabeteson GLP-1 5. 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 Anemia 7. Acute lacunar infarct 8. ? Acute cholecystitis Intermittently tachycardic with what appears to be AT to 120-140s and extended period of SVT to 170s, ?AVNRT. When HR in 120s transient AV block with adenosine then return to prior heart rates. Borderline hypotensive post HD, now on midodrine. Repeat limited echo today. No interatrial shunt. No significant pericardial effusion. Overall suspect HRs more of a response to acute medical issues than driving acute symptoms. Further w/up of abdomen and CTA to r/o PE and repeat labs pending. -- OK with current HRs in 120s. -- Continue metoprolol to reduce likelihood of recurrent higher rate SVT -- If hypotension an issue can reduce metoprolol dose or try amio Will follow Admission and Anticipated Discharge Date Admission Date: October 23, 2022 Subjective Developed acute aphasia last night. MRI demonstrating a small focus in the periventricular white matter consistent with a acute or subacute lacunar infarct. Generally answering questions appropriately this morning. No chest pain. Remains tachycardic. Post HD HRs up to 170s today Review of Systems Review of Systems: All systems reviewed & are unremarkable except as noted in HPI & below Physical Exam Physical Exam: General: uncomfortable, tachypneic HEENT: Sclerae anicteric Lungs: Few crackles at bases Cardiac: Tachycardic, regular, no murmur Vascular: 2+ radial, palpable left upper extremity fistula with thrill Abdomen: Soft, nontender Extremities: Well perfused, no significant lower extremity edema with chronic venous stasis change Neuro: Nonfocal Psych: Alert orient x3, normal affect and mood Results & Data Vital Signs (Past 12 Hours) Vital Signs Temp Pulse Pulse Resp BP BP Pulse Ox 10/24/22 16:53 123 H 10/24/22 16:07 99.0 F 122 H 22 105/61 97 10/24/22 15:39 120 H 24 94/52 L 96 10/24/22 13:27 169 H 89/52 L 10/24/22 13:00 135 H 94/52 L 10/24/22 13:31 99.1 F 129 H 95/56 L 10/24/22 13:35 99.1 F 95/56 L 10/24/22 14:40 133 H 22 113/63 96 10/24/22 14:03 144 H 24 91/51 L 94 10/24/22 12:30 134 H 105/67 10/24/22 12:00 128 H 100/59 L 10/24/22 11:30 120 H 84/56 L 10/24/22 11:00 121 H 81/49 L 10/24/22 10:30 133 H 87/49 L 10/24/22 10:00 137 H 101/56 L 10/24/22 09:00 124 H 10/24/22 09:00 10/24/22 09:30 98.4 F 58 L 99/56 L 10/24/22 09:15 98.4 F 84 10/24/22 07:32 99.5 F 130 H 20 105/60 94 10/24/22 07:09 97.7 F 125 H 18 128/85 92 O2 Del Method O2 Flow Rate 10/24/22 16:53 10/24/22 16:07 Nasal Cannula 4 10/24/22 15:39 Nasal Cannula 4 10/24/22 13:27 10/24/22 13:00 10/24/22 13:31 10/24/22 13:35 10/24/22 14:40 Nasal Cannula 4 10/24/22 14:03 Nasal Cannula 4 10/24/22 12:30 10/24/22 12:00 10/24/22 11:30 10/24/22 11:00 10/24/22 10:30 10/24/22 10:00 10/24/22 09:00 10/24/22 09:00 Nasal Cannula 3 10/24/22 09:30 10/24/22 09:15 10/24/22 07:32 Nasal Cannula 3 10/24/22 07:09 Nasal Cannula PG Care Time/CCT Total # of Minutes Spent Total Time Spent with Patient: Total time spent is greater than 50% in coordination of care (as documented) at patient's floor/unit and/or counseling patient: Coding Level of Care Code 66077 SUB INP/OBS CARE 3/50MIN Diagnoses Pericardial effusion I31.39
[2022-10-24 17:27] LABS: Base Excess VBG -0.8 mEq/L; HCO3 VBG 25 mmol/L; Oxygen Saturation VBG 76.3 %; PCO2 VBG 44 mmHg (38-50); PO2 VBG 47 mmHg; pH VBG 7.36 (7.36-7.41)
[2022-10-24 17:37] LABS: C Reactive Protein 28.16 mg/dl (0-0.5); Magnesium 2.2 mg/dl (1.7-2.4); Phosphorus 3.2 mg/dl (2.5-4.9)
[2022-10-24] MEDS ORDERED: IOVERSOL 350 MG 125mL Prefilled Syringe IV ONE (17:41)
[2022-10-24 17:42] LABS: Albumin Level 2.8 gm/dl (3.4-5.0); BUN Creatinine Ratio 6.7 (10-20); Bilirubin,Total 3.3 mg/dl (0.2-1.0); Calcium 8.4 mg/dl (8.6-10.3); Creatinine Clr Calc Pharmacy 28.6 ml/min; Est GFR (African American) 27.1 ml/min; Est GFR (Non-African American) 23.4 ml/min; Globulin 2.8 gm/dl (2.5-4.0); Potassium 4.6 mmol/L (3.5-5.1); Total Protein 5.6 gm/dl (6.0-8.3)
[2022-10-24] MEDS ORDERED: PIPERACILLIN/TAZOBACTAM 4.5 GM (over 30 mins) IV ONE (17:45)
--- NOTE | 2022-10-24 18:03 | CT Scan Report ---
CT ANGIOGRAPHY OF THE CHEST, PULMONARY EMBOLUS PROTOCOL CLINICAL HISTORY: Shortness of breath. Evaluate for pulmonary embolus. COMPARISON STUDY: Chest CT October 23, 2022. TECHNIQUE: Following IV administration of 117 mL of Optiray, helical axial images of the chest were o btained utilizing the pulmonary embolus protocol. Maximal intensity projections and sagittal and cor onal reformats were viewed on an independent 3D workstation. IV contrast was administered without co mplication. Automated exposure control was utilized for the study. A dose lowering technique was ut ilized adhering to the principles of ALARA. CT DOSE: 2405.76 mGy.cm FINDINGS: No pulmonary emboli are identified although the segmental and subsegmental pulmonary arter ies are suboptimally assessed due to respiratory motion. There is no thoracic aortic dissection. Ther e is moderate cardiomegaly. A trace pericardial effusion is present. No pneumothorax is present. Ther e are trace bilateral pleural effusions. Subpleural opacities favor atelectasis. Lungs are suboptimal ly assessed due to respiratory motion. There is no consolidation to suggest pneumonia. The abdomen an d pelvis CT will be reported separately. There is no thoracic lymphadenopathy. Left shoulder arthropl asty is partially imaged. IMPRESSION: 1. No pulmonary emboli identified although segmental and subsegmental pulmonary arteries suboptimally assessed due to respiratory motion. 2. No consolidation to suggest pneumonia. Trace bilateral pleural effusions with subsegmental atelect asis. 3. Moderate cardiomegaly. Trace pericardial effusion. ACT 112: Negative or not required by law. Electronically signed by: Pablo Owusu M.D. 10/24/2022 6:01 PM
[2022-10-24] MEDS: MIDODRINE HCL 2.5 MG TAB PO SCH (18:06)
--- NOTE | 2022-10-24 18:14 | CT Scan Report ---
CT OF THE ABDOMEN AND PELVIS WITH CONTRAST CLINICAL HISTORY: Abdominal Pain, elevated lactic acid. COMPARISON STUDY: CT of the abdomen and pelvis April 20, 2020. TECHNIQUE: Following IV administration of 117 mL of Optiray, axial images of the abdomen and pelvis w ere obtained from the lung bases to the proximal femurs. Images were reviewed in the axial, sagittal, and coronal planes. IV contrast was administered without complication. Automated exposure control w as utilized for the study. A dose lowering technique was utilized adhering to the principles of ALAR A. FINDINGS: Please note that the chest CT will be reported separately. No pneumatosis, free air or port al venous gas is present. No hepatic lesions are present. There is mild intra and extrahepatic biliar y ductal dilatation. The gallbladder is mildly distended. There are multiple gallstones within the ga llbladder. Pericholecystic stranding is present. There is no peripancreatic infiltration or stranding . Diverticulum of the third duodenum is incidentally noted. Spleen, adrenal glands are unremarkable. Bilateral renal atrophy is noted. Numerous bilateral renal calculi are present. There is no hydroneph rosis. There are no ureteral calculi. Numerous renal cysts are incidentally noted. There is no eviden ce for a bowel obstruction. There is colonic diverticulosis without evidence for acute diverticulitis . The appendix is normal. Right hip arthroplasty is incidentally noted. There is contrast within the bladder from recent contrast-enhanced chest CT. IMPRESSION: 1. Findings highly suggestive of acute cholecystitis. 2. Mild biliary ductal dilatation. This could be correlated with obstructive liver function tests. 3. No bowel obstruction. No bowel wall thickening. 4. Sigmoid diverticulosis. No evidence for acute diverticulitis. 5. Bilateral nephrolithiasis. ACT 112: Negative or not required by law. Electronically signed by: Pablo Owusu M.D. 10/24/2022 6:12 PM
[2022-10-24 20:13] LABS: Appearance Urine Turbid (Clear); Bacteria Urine Automated Negative (Negative); Blood Urine 2+ (Negative); Color Urine Dark Yellow; Epithelial Cell Urine Auto >30 /lpf (0-5); Glucose Urine UA Trace (Negative); Ketones Urine Trace (Negative); Leukocyte Esterase Urine Trace (Negative); Nitrite Urine Positive (Negative); Protein Urine 3+ (Negative); Specific Gravity Urine > 1.045 (1.000-1.030); Urobilinogen Urine Negative (Negative); WBC Urine Automated >30 /hpf (0-5); pH Urine 5.5 (4.5-7.5)
[2022-10-24 20:17] LABS: Bilirubin Urine 2+ (Negative)
--- NOTE | 2022-10-24 20:59 | Hospitalist Progress Note ---
Date of Service October 24, 2022 Assessment & Plan (1) Acute cholecystitis due to biliary calculus: Plan: Patient has been tachycardic throughout hospital stay. WBC increased to 19, but this was at time of stroke. Initally thought to be reactive. Patient also was not having abdominal pain. However, on repeat testing and imaging, no P/E was found, but signs of cholecystitis with LFTS showing increased bilirrubin. Informed Dr. Conley, and consulted [facility]. will order MRCP in case this is needed, however, GI may bypass this step given his lab findings. (2) Lacunar stroke, acute: Plan: Patient became aphasic, stroke alert called on 10/24 He was having word finding problems. NIH stroke scale 3. Stroke alert was called. CT head and CTA hea/neck were nagetive. Tele stroke provider did not recommend tPA given patient had mild symptoms. Likely lacunar infarct as he is diabetic. Will order ASA 325 mgx1. MRI brain. folate 2mg as await homocysteine results, if level less than 10, ok to stop folate. (3) Chest pain: Plan: 76 year old male w/ PmHx ESRD on dialysis MWF, T2DM, GERD, BPH, HTN admitted for chest pain rule out. Chest pain: -EKG NSR without ST elevation or depression, T wave inversion in V1 and aVR however these are not new. -Troponin 10.0, repeat 6.0. -CTA chest without any evidence for PE, small pericardial effusion. -Ordered complete echo to rule out wall motion abnormalities, pericardial effusion. -Holding off on treatment of small pericardial effusion seen on CT until US results back. -Given negative trop and EKG without acute changes, less likely IL. -Consulted cardiology, will appreciate recs. ESRD on HD: -On HD MWF, had received HD yesterday. -Received contrast in the ED this past night for CTA. -Consulted nephro for HD management given contrast use. -will repeat HD on 10/25 T2DM: -Holding home diabetes medications while on obs. If patient here for more than [address] on basal and SSI. GERD: -Continue home pantoprazole. HLD: -continue home atorvastatin. Anemia: -Hgb 10.7 on admission, slightly lower than baseline 11-12. -Can continue to monitor with daily CBC if admitted for more than 1 day. BPH: -Continue home tamsulosin. F/E/N/GI: Renal HD diet. DVT prophylaxis: patient able to ambulate less likely IL, no chemoprophylaxis at this time Code status: Full code Dispo: Med/tele obs. (4) Diabetes mellitus type 2 in obese: (5) GERD (gastroesophageal reflux disease): (6) Hyperlipidemia: (7) Hypertension: (8) Chronic kidney disease, stage 4 (severe): (9) BPH (benign prostatic hyperplasia): (10) Anemia: Admission and Anticipated Discharge Date Admission Date: October 23, 2022 Subjective Patient reports no abdominal pain. Review of Systems Review of Systems: All systems reviewed & are unremarkable except as noted in HPI & below Physical Exam Physical Exam: Constitutional: WD/WN, vitals as above Eyes: PERRL, conjunctivae normal, anicteric sclerae Respiratory: normal respiratory effort, lungs clear to auscultation Cardiovascular: tachycardia Gastrointestinal (Abdomen): normal bowel sounds, soft, nontender, no hepatosplenomegaly Psychiatric: A+Ox3, euthymic affect Neuo: mild aphasia Results & Data Results & Data Vital Signs (Past 12 Hours) Vital Signs Temp Pulse Pulse Resp BP BP Pulse Ox 10/24/22 19:35 36.8 C 120 H 18 113/63 94 10/24/22 18:38 118 H 26 H 92/53 L 94 10/24/22 16:53 123 H 10/24/22 16:07 37.2 C 122 H 22 105/61 97 10/24/22 15:39 120 H 24 94/52 L 96 10/24/22 13:27 169 H 89/52 L 10/24/22 13:00 135 H 94/52 L 10/24/22 13:31 37.3 C 129 H 95/56 L 10/24/22 13:35 37.3 C 95/56 L 10/24/22 14:40 133 H 22 113/63 96 10/24/22 14:03 144 H 24 91/51 L 94 10/24/22 12:30 134 H 105/67 10/24/22 12:00 128 H 100/59 L 10/24/22 11:30 120 H 84/56 L 10/24/22 11:00 121 H 81/49 L 10/24/22 10:30 133 H 87/49 L 10/24/22 10:00 137 H 101/56 L 10/24/22 09:00 124 H 10/24/22 09:00 10/24/22 09:30 36.9 C 58 L 99/56 L 10/24/22 09:15 36.9 C 84 O2 Del Method O2 Flow Rate 10/24/22 19:35 Nasal Cannula 10/24/22 18:38 Nasal Cannula 4 10/24/22 16:53 10/24/22 16:07 Nasal Cannula 4 10/24/22 15:39 Nasal Cannula 4 10/24/22 13:27 10/24/22 13:00 10/24/22 13:31 10/24/22 13:35 10/24/22 14:40 Nasal Cannula 4 10/24/22 14:03 Nasal Cannula 4 10/24/22 12:30 10/24/22 12:00 10/24/22 11:30 10/24/22 11:00 10/24/22 10:30 10/24/22 10:00 10/24/22 09:00 10/24/22 09:00 Nasal Cannula 3 10/24/22 09:30 10/24/22 09:15 PG Care Time/CCT Total # of Minutes Spent Total Time Spent with Patient: Total time spent is greater than 50% in coordination of care (as documented) at patient's floor/unit and/or counseling patient: Prolonged Care Time Prolonged Care Time: Yes Total Prolonged Care Time: 120 13:00 to 13:30 16:00 to 17:30 Coding Level of Care Code 08104 SUB INP/OBS CARE 3/50MIN (25 - SIGNIFICANT, SEPARATELY IDENTIFIABLE ) Diagnoses Acute cholecystitis due to biliary calculus K80.00 Lacunar stroke, acute I63.81 Chest pain R07.9 Diabetes mellitus type 2 in obese E11.69; E66.9 GERD (gastroesophageal reflux disease) K21.9 Hyperlipidemia E78.5 Hypertension I10 Hypertension type: essential hypertension Chronic kidney disease, stage 4 (severe) N18.4 BPH (benign prostatic hyperplasia) N40.0 Anemia D64.9 Additional Codes Prolonged Care Time - Prolonged Care Time: Yes ([id number]) (7) Hypertension Hypertension type: essential hypertension Qualified Code(s): I10 - Essential (primary) hypertension
[2022-10-24 21:04] LABS: Granular Casts Urine 20-30 /lpf (0)
[2022-10-25] MEDS: METOPROLOL TARTRATE 100 MG TAB PO SCH ×3 (00:24→19:51)
[2022-10-25] MEDS: allopurinoL 100 MG TAB PO SCH ×2 (00:27→19:52)
[2022-10-25] MEDS: FERROUS SULFATE 325 MG TAB PO SCH ×3 (00:28→19:51)
[2022-10-25] MEDS: ATORVASTATIN 20 MG TAB PO SCH ×2 (00:28→19:51)
[2022-10-25] MEDS: SUCRALFATE 1 GM TAB PO SCH ×5 (00:29→21:27)
[2022-10-25] MEDS: SODIUM BICARBONATE 650 MG TAB PO SCH ×3 (00:29→21:26)
[2022-10-25] MEDS: PENTOSAN POLYSULFATE SODIUM 100 MG CAP PO SCH ×3 (00:29→19:51)
--- NOTE | 2022-10-25 00:38 | Magnetic Resonance Report ---
Exam(s): MRI MRCP EXAM: MR Abdomen Without Intravenous Contrast, MRCP Protocol CLINICAL HISTORY: Gallbladder is distended. TECHNIQUE: Multiplanar magnetic resonance images of the abdomen without intravenous contrast using MRCP protocol. COMPARISON: No relevant prior studies available. FINDINGS: Limitations: The evaluation is limited by respiratory artifact and patient body habitus. Lower thorax: Subsegmental changes noted in the posterior aspect of the lower lobes. Trace pleural effusion suspected. Mild pericardial effusion suggested. Bile ducts: The common bile duct is normal in caliber proximally. In the region of the mid to distal common bile duct, there is a cystic structure measuring 1.5 x 2.2 x 2 cm, immediately superior to the pancreatic neck and head with a suggestion of smaller adjacent cysts inferiorly measuring approximately 8 mm. The most distal common bile duct at the ampulla appears normal in caliber. No definite choledocholithiasis. Gallbladder: There are subcentimeter gallstones layering posteriorly in the gallbladder. Echogenic sludge is also identified within the gallbladder. There is a suggestion of pericholecystic edema. No gallbladder wall thickening. Liver: Grossly unremarkable. No focal abnormality suspected. Pancreas: Unremarkable. No ductal dilation. Spleen: Unremarkable. No splenomegaly. Adrenals: Limited. Kidneys and ureters: Innumerable cortical cysts noted throughout both kidneys. No definite solid enhancing components. The kidneys are somewhat atrophic in appearance. No hydronephrosis. Stomach and bowel: Evaluation the bowel is limited. No obvious focal abnormality. No obstruction. Soft tissues: Evaluation of the overlying soft tissues is limited by artifact. IMPRESSION: 1. There are subcentimeter gallstones layering posteriorly in the gallbladder. Echogenic sludge is also identified within the gallbladder. There is a suggestion of pericholecystic edema. No gallbladder wall thickening. Findings are somewhat equivocal definite; however, acute cholecystitis is difficult to exclude. Functional radionuclide imaging gallbladder may provide additional information if there is high clinical index of suspicion for acute cholecystitis. 2. The common bile duct is normal in caliber proximally. In the region of the mid to distal common bile duct, there is a cystic structure measuring 1.5 x 2.2 x 2 cm, immediately superior to the pancreatic neck and head with a suggestion of smaller adjacent cysts inferiorly measuring approximately 8 mm. The most distal common bile duct at the ampulla appears normal in caliber. No definite choledocholithiasis. Findings are suspicious for a choledochocele. IPMN of the pancreatic head is thought to be less likely. Clear delineation of the cysts in relation to the common bile duct is somewhat limited by artifact. Dedicated high- resolution imaging of the pancreas, both with and without contrast may provide additional information, ideally when the patient is able to breath-hold for the examination. 3. Innumerable cortical cysts noted throughout both kidneys. No definite solid enhancing components. The kidneys are somewhat atrophic in appearance. Please correlate with potential end-stage renal disease and dialysis. Electronically signed by: Alphonso Velasquez MD 10/25/22 00:38 AM
[2022-10-25] MEDS ORDERED: PIPERACILLIN/TAZOBACTAM 4.5 GM in DEXTROSE 5% 100 ML IV SCH (03:00)
[2022-10-25 07:46] LABS: A calco-baum cmplx NotReported Not Detected (NotDetected); Bact fragilis Not Reported Not Detected (NotDetected); C auris Not Reported Not Detected (NotDetected); CTX-M Resistant Gene Not Detected (NotDetected); Calbicans Not Reported Not Detected (NotDetected); Candida glabrata Not Reported Not Detected (NotDetected); Candida krusei Not Reported Not Detected (NotDetected); Cneoformans/gatti Not Reported Not Detected (NotDetected); Cparapsilosis Not Reported Not Detected (NotDetected); Ctropicalis Not Reported Not Detected (NotDetected); E cloacae compx Not Reported Not Detected (NotDetected); Efaecalis Not Reported Not Detected (NotDetected); Efaecium Not Reported Not Detected (NotDetected); Enterobacterales Not Reported DETECTED (NotDetected); Escherichia coli Not Reported Not Detected (NotDetected); H influenzae Not Reported Not Detected (NotDetected); IMP Resistant Gene Not Detected (NotDetected); K aerogenes Not Reported Not Detected (NotDetected); KPC Resistant Gene Not Detected (NotDetected); Koxytoca Not Reported Not Detected (NotDetected); Kpneumoniae grp Not Reported Not Detected (NotDetected); Lmonocyt Not Reported Not Detected (NotDetected); N meningitidis Not Reported Not Detected (NotDetected); NDM Resistant Gene Not Detected (NotDetected); OXA 48 Like Resistant Gene Not Detected (NotDetected); P aeruginosa Not Reported Not Detected (NotDetected); Proteus spp Not Reported Not Detected (NotDetected); Salmonella spp Not Reported Not Detected (NotDetected); Smarcescens Not Reported Not Detected (NotDetected); Staph lugdunensis Not Reported Not Detected (NotDetected); Staph spp. Not Reported Not Detected (NotDetected); Staphaureus Not Reported Not Detected (NotDetected); Staphepi Not Reported Not Detected (NotDetected); Stenmaltophilia Not Reported Not Detected (NotDetected); Strep agal(GrpB) Not Reported Not Detected (NotDetected); Strep pneum Not Reported Not Detected (NotDetected); Strep pyog (GrpA) Not Reported Not Detected (NotDetected); Strep spp Not Reported Not Detected (NotDetected); VIM Resistant Gene Not Detected (NotDetected)
[2022-10-25 07:57] LABS: Enterobacterales DETECTED (NotDetected)
--- NOTE | 2022-10-25 08:13 | Hospitalist Progress Note ---
Date of Service October 25, 2022 Assessment & Plan (1) Acute cholecystitis due to biliary calculus: Plan: Concern for sepsis Confirmed Gram neg bacteremia on blood cultures CT suggests cholecystitis with LFTS showing increased bilirubin. MRCP also suggestive, persistent elevated inflammatory markers Informed Dr. Oden, and consulted General Surgery. Renal dosed Zosyn (2) Lacunar stroke, acute: Plan: Patient became aphasic, stroke alert called on 10/24 He was having word finding problems. NIH stroke scale 3. CT head and CTA hea/neck were negative. Tele stroke provider did not recommend tPA given patient had mild symptoms. Likely lacunar infarct as he is diabetic. Will order ASA 325 mgx1. MRI brain. folate 2mg as await homocysteine results, if level less than 10, ok to stop folate. (3) Chest pain: Plan: 76 year old male w/ PmHx ESRD on dialysis MWF, T2DM, GERD, BPH, HTN admitted for chest pain rule out, found to have acute cholecystitis, sepsis/Gr negative bacteremia and episode consistent with TIA and or small stroke Chest pain: -EKG NSR without acute changes -Troponin 10.0, repeat 6.0. -CTA chest without any evidence for PE, small pericardial effusion. -Ordered complete echo to rule out wall motion abnormalities, pericardial effusion. -Given negative trop and EKG without acute changes, less likely UT. -Consulted cardiology, does not feel pericardial effusion is physiologic, continue metoprolol ESRD on HD: [id number] -On HD MWF, had received HD yesterday. -Received contrast for CTA. -Consulted nephro for HD management given contrast use. T2DM: -Holding home diabetes medications basal and SSI. HLD: -continue home atorvastatin. Anemia:chronic disease -Hgb 10.7 on admission, slightly lower than baseline 11-12. BPH: -Continue home tamsulosin. DVT prophylaxis: patient able to ambulate less likely UT, no chemoprophylaxis at this time Code status: Full code (4) Diabetes mellitus type 2 in obese: (5) Chronic kidney disease, stage 4 (severe): (6) BPH (benign prostatic hyperplasia): Admission and Anticipated Discharge Date Admission Date: October 23, 2022 Subjective pt was seen in the presence of his , she endorses that he is much improved from the 10/24/22 for ERCP today, possibe EUS and contemplation for cholecystectomy resolution of RESOURCE ANALYST symptoms, but confirmed Lacunar stroke on MRI Physical Exam Physical Exam: awake and alert, no focal distress cardiac is regular lungs are clear abd is with RUQ tenderness but not acute abdomen or guarding Results & Data Results & Data Vital Signs (Past 12 Hours) Vital Signs Temp Pulse Pulse Resp BP Pulse Ox O2 Del Method 10/24/22 22:00 106 H 10/25/22 02:27 98.1 F 110 H 18 116/73 96 Nasal Cannula 10/25/22 00:02 98.8 F 105 H 18 101/62 95 Nasal Cannula 10/24/22 22:34 98.6 F 115 H 18 105/62 95 Nasal Cannula O2 Flow Rate 10/24/22 22:00 10/25/22 02:27 10/25/22 00:02 4 10/24/22 22:34 Laboratory Results review cbc review chemistry PG Care Time/CCT Total # of Minutes Spent Total Time Spent with Patient: Total time spent is greater than 50% in coordination of care (as documented) at patient's floor/unit and/or counseling patient: Coding Level of Care Code 43799 SUB INP/OBS CARE 3/50MIN Diagnoses Acute cholecystitis due to biliary calculus K80.00 Lacunar stroke, acute I63.81 Chest pain R07.9 Diabetes mellitus type 2 in obese E11.69; E66.9 Chronic kidney disease, stage 4 (severe) N18.4 BPH (benign prostatic hyperplasia) N40.0
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
[2022-10-25] MEDS: FOLIC ACID 1 MG TAB PO SCH (09:38)
[2022-10-25] MEDS: FUROSEMIDE 20 MG TAB PO SCH (09:38)
[2022-10-25] MEDS: ASPIRIN 81 MG ECTAB PO SCH (09:38)
[2022-10-25] MEDS: MIDODRINE HCL 2.5 MG TAB PO SCH ×3 (09:38→18:26)
[2022-10-25] MEDS: CALCITRIOL 0.25 MCG CAPSULE PO SCH (09:38)
[2022-10-25] MEDS: TAMSULOSIN HCL 0.4 MG CAP PO SCH (09:38)
[2022-10-25] MEDS: PANTOprazole 40 MG TAB PO SCH (09:38)
--- NOTE | 2022-10-25 10:51 | Nephrology Progress Note ---
Date of Service October 25, 2022 Assessment & Plan (1) ESRD (end stage renal disease): Plan: HD MWF. BP and volume status acceptable. Electrolytes normal. Completed treatment yesterday with adequate clearance. Next HD will be tomorrow. Renal diet and fluid restriction maintained. Medications appropriate for kidney function. (2) Chest pain: Plan: Etiology unclear. Symptoms resolved. Cardiology consultation appreciated. CTA negative. No acute EKG changes or concerning elevation in cardiac enzymes. Atrial tachycardia persists but asymptomatic. (3) Pericardial effusion: Plan: Small and stable. Not hemodynamically significant. (4) AV (arteriovenous fistula): Plan: AVF functioning reasonably well. Adequate clearance with treatment. Long needles. (5) Lacunar stroke, acute: Plan: Remains on tele monitor. Symptoms improving. Aspirin and folate per hospitalist service. (6) Bacteremia: Plan: Blood cultures 10/24 GNR. (7) Acute cholecystitis due to biliary calculus: Plan: ERCP pending. MRCP reviewed. Cystic finding aroundd CBD suggestive of IPMC vs choledochocele. Remains on Zosyn. Admission and Anticipated Discharge Date Admission Date: October 23, 2022 Subjective No acute events overnight. Notable improvement overnight. Alfa does not recall much from the past couple of days. He remembers events prior to hospitalization but not during. He feels well this morning. No fevers or chills. He denies abdominal pain. He is breathing comfortably. Review of Systems Review of Systems: All systems reviewed & are unremarkable except as noted in HPI & below Physical Exam Constitutional: well developed; no acute distress Eyes: no scleral abnormality and no corneal abnormality ENMT: Mouth: no oral mucosal abnormality and oral mucous membranes not dry Neck: normal visual inspection and trachea midline Respiratory: normal respiratory effort Auscultation: lungs clear to auscultation bilaterally Cardiovascular: Rate/Rhythm: + irregularly irregular Heart Sounds: normal S1 and normal S2 Extremities: + AV fistula; no edema Gastrointestinal (Abdomen): Percussion/Palpation: abdomen soft; abdomen nontender and no guarding Musculoskeletal: Extremities: no cyanosis and no clubbing Skin: normal turgor; no jaundice Neurologic: Motor/Sensory: no tremor and no asterixis Psychiatric: Orientation: alert and oriented x 3 Results & Data Vital Signs (Past 12 Hours) Vital Signs Temp Pulse Pulse Resp BP Pulse Ox O2 Del Method 10/25/22 08:40 36.6 C 101 H 18 118/74 96 Nasal Cannula 10/25/22 07:00 100 H 10/25/22 02:27 36.7 C 110 H 18 116/73 96 Nasal Cannula 10/25/22 00:02 37.1 C 105 H 18 101/62 95 Nasal Cannula O2 Flow Rate 10/25/22 08:40 4.0 10/25/22 07:00 10/25/22 02:27 10/25/22 00:02 4 Laboratory Results Laboratory Results - last 24 hr 10/24/22 10/24/22 10/24/22 14:29 16:58 16:58 VBG pH VBG pCO2 VBG pO2 VBG HCO3 VBG O2 Saturation VBG Base Excess Sodium Potassium Chloride Carbon Dioxide Anion Gap BUN Creatinine Est Cr Clr Drug Dosing Est GFR ( Amer) Est GFR (Non-Af Amer) BUN/Creatinine Ratio Glucose Lactate Calcium Phosphorus 3.2 Magnesium 2.2 Total Bilirubin AST ALT Alkaline Phosphatase C-Reactive Protein 28.16 H Total Protein Albumin Globulin Albumin/Globulin Ratio Procalcitonin 26.97 H Urine Color Urine Appearance Urine pH Ur Specific Morgan Urine Protein Urine Glucose (UA) Urine Ketones Urine Blood Urine Nitrite Urine Bilirubin Urine Urobilinogen Ur Leukocyte Esterase Urine WBC (Auto) Urine RBC (Auto) U Hyaline Cast (Auto) U Epithel Cells (Auto) Urine Bacteria (Auto) Granular Casts Urine Yeast SARS-CoV-2 (PCR) NEGATIVE Enterobacterales (PCR) Influenza Type A (PCR) Negative Influenza Type B (PCR) Negative RSV (RT-PCR) Negative blaIMP Car res Gene PCR KPC-Carbap Res Gene PCR blaNDM Car Res Gene PCR OXA-48 Carbapenem Resis Gene (PCR) blaVIM Car Res Gene PCR CTX-M Gene Resistance (PCR) Bld Cult ID Panel PCR 10/24/22 10/24/22 10/24/22 16:58 16:58 16:58 VBG pH 7.36 VBG pCO2 44 VBG pO2 47 VBG HCO3 25 VBG O2 Saturation 76.3 VBG Base Excess -0.8 Sodium 136 Potassium 4.6 Chloride 101 Carbon Dioxide 25 Anion Gap 10 BUN 17 D Creatinine 2.54 H D Est Cr Clr Drug Dosing 28.6 Est GFR ( Amer) 27.1 Est GFR (Non-Af Amer) 23.4 BUN/Creatinine Ratio 6.7 L Glucose 70 Lactate 4.3 H* Calcium 8.4 L Phosphorus Magnesium Total Bilirubin 3.3 H D AST 183 H ALT 203 H Alkaline Phosphatase 331 H D C-Reactive Protein Total Protein 5.6 L Albumin 2.8 L Globulin 2.8 Albumin/Globulin Ratio 1.0 Procalcitonin Urine Color Urine Appearance Urine pH Ur Specific Morgan Urine Protein Urine Glucose (UA) Urine Ketones Urine Blood Urine Nitrite Urine Bilirubin Urine Urobilinogen Ur Leukocyte Esterase Urine WBC (Auto) Urine RBC (Auto) U Hyaline Cast (Auto) U Epithel Cells (Auto) Urine Bacteria (Auto) Granular Casts Urine Yeast SARS-CoV-2 (PCR) Enterobacterales (PCR) Influenza Type A (PCR) Influenza Type B (PCR) RSV (RT-PCR) blaIMP Car res Gene PCR KPC-Carbap Res Gene PCR blaNDM Car Res Gene PCR OXA-48 Carbapenem Resis Gene (PCR) blaVIM Car Res Gene PCR CTX-M Gene Resistance (PCR) Bld Cult ID Panel PCR 10/24/22 10/24/22 10/24/22 18:08 19:24 Unknown VBG pH VBG pCO2 VBG pO2 VBG HCO3 VBG O2 Saturation VBG Base Excess Sodium Potassium Chloride Carbon Dioxide Anion Gap BUN Creatinine Est Cr Clr Drug Dosing Est GFR ( Amer) Est GFR (Non-Af Amer) BUN/Creatinine Ratio Glucose Lactate 3.0 H* Calcium Phosphorus Magnesium Total Bilirubin AST ALT Alkaline Phosphatase C-Reactive Protein Total Protein Albumin Globulin Albumin/Globulin Ratio Procalcitonin Urine Color Dark Yellow Urine Appearance Turbid A Urine pH 5.5 Ur Specific Morgan > 1.045 H Urine Protein 3+ H Urine Glucose (UA) Trace H Urine Ketones Trace H Urine Blood 2+ H Urine Nitrite Positive A Urine Bilirubin 2+ H Urine Urobilinogen Negative Ur Leukocyte Esterase Trace H Urine WBC (Auto) >30 H Urine RBC (Auto) 10-30 H U Hyaline Cast (Auto) 10-30 H U Epithel Cells (Auto) >30 H Urine Bacteria (Auto) Negative Granular Casts 20-30 H Urine Yeast Not Reportable SARS-CoV-2 (PCR) Enterobacterales (PCR) DETECTED A Influenza Type A (PCR) Influenza Type B (PCR) RSV (RT-PCR) blaIMP Car res Gene PCR Not Detected KPC-Carbap Res Gene PCR Not Detected blaNDM Car Res Gene PCR Not Detected OXA-48 Carbapenem Resis Gene (PCR) Not Detected blaVIM Car Res Gene PCR Not Detected CTX-M Gene Resistance (PCR) Not Detected Bld Cult ID Panel PCR See PCR Comment PG Care Time/CCT Total # of Minutes Spent Total Time Spent with Patient: Total time spent is greater than 50% in coordination of care (as documented) at patient's floor/unit and/or counseling patient: Coding Level of Care Code 54955 SUB INP/OBS CARE 3/50MIN Diagnoses ESRD (end stage renal disease) N18.6 Chest pain R07.9 Pericardial effusion I31.39 AV (arteriovenous fistula) I77.0 Lacunar stroke, acute I63.81 Bacteremia R78.81 Acute cholecystitis due to biliary calculus K80.00
[2022-10-25] MEDS: PIPERACILLIN/TAZOBACTAM 4.5 GM in DEXTROSE 5% 100 ML IV SCH ×2 (11:17→19:45)
[2022-10-25 11:25] LABS: Hematocrit (blood only) 28.9 % (42.0-52.0); Hemoglobin 9.5 g/dl (14.0-18.0); Mean Corpuscular Hemoglobin 30.5 pg (25.0-34.0); Mean Corpuscular Hgb Conc 32.9 g/dL (32.0-36.0); Mean Corpuscular Volume 92.9 fL (80.0-100.0); Mean Platelet Volume 11.1 fL (9.4-12.4); Platelet Count 101 K/uL (130-400); RDW Coefficient of Variation 13.9 % (11.5-14.5); RDW Standard Deviation 47.4 fL (36.4-46.3); Red Blood Count 3.11 M/uL (4.70-6.10); White Blood Count 22.19 K/ul (4.8-10.8)
[2022-10-25 11:29] LABS: Albumin Level 2.7 gm/dl (3.4-5.0); Bilirubin Direct 2.1 mg/dl (0-0.2); Bilirubin,Total 2.9 mg/dl (0.2-1.0); Calcium 8.1 mg/dl (8.6-10.3); Creatinine Clr Calc Pharmacy 19.8 ml/min; Est GFR (African American) 17.6 ml/min; Est GFR (Non-African American) 15.2 ml/min; Total Protein 5.8 gm/dl (6.0-8.3)
[2022-10-25 12:09] LABS: Basophils # (auto) 0.04 K/uL (0.00-0.20); Basophils % (auto) 0.2 %; Dohle Bodies 1+; Echinocytes 1+; Eosinophils # (auto) 0.01 K/uL (0.00-0.50); Immature Granulocytes # (auto) 0.29 K/uL (0.01-0.20); Immature Granulocytes % (auto) 1.3 %; Lymphocytes # (auto) 0.84 K/uL (1.20-3.40); Lymphocytes % (auto) 3.8 %; Monocytes # (auto) 0.94 K/uL (0.11-0.59); Monocytes % (auto) 4.2 %; Neutrophils # (auto) 20.07 K/uL (1.40-6.50); Neutrophils % (auto) 90.5 %; Rouleaux 1+; Toxic Vacuolation 1+
--- NOTE | 2022-10-25 12:41 | Surgery Consultation ---
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 K/uL MPV 11.1 (9.4-12.4) fL Immature Gran % (Auto) 1.3 % Neut % (Auto) 90.5 % Lymph % (Auto) 3.8 % Day % (Auto) 4.2 % Eos % (Auto) 0.0 % Baso % (Auto) 0.2 % Neut # (Auto) 20.07 H (1.40-6.50) K/uL Lymph # (Auto) 0.84 L (1.20-3.40) K/uL Day # (Auto) 0.94 H (0.11-0.59) K/uL Eos # (Auto) 0.01 (0.00-0.50) K/uL Baso # (Auto) 0.04 (0.00-0.20) K/uL Immature Gran # (Auto) 0.29 H (0.01-0.20) K/uL Toxic Vacuolation 1+ Dohle Bodies 1+ Echinocytes 1+ Rouleaux 1+ PT (9.0-12.0) Seconds INR (0.9-1.1) APTT (21.0-31.0) Seconds PTT Ratio VBG pH (7.36-7.41) VBG pCO2 (38-50) mmHg VBG pO2 mmHg VBG HCO3 mmol/L VBG O2 Saturation % VBG Base Excess mEq/L Sodium 132 L (136-145) mmol/L Potassium 5.0 (3.5-5.1) mmol/L Chloride 98 (98-107) mmol/L Carbon Dioxide 25 (21-32) mmol/L Anion Gap 9 (3-11) BUN 33 H (6-23) mg/dl Creatinine 3.64 H D (0.6-1.4) mg/dl Est Cr Clr Drug Dosing 19.8 Est GFR ( Amer) 17.6 ml/min Est GFR (Non-Af Amer) 15.2 ml/min BUN/Creatinine Ratio (10-20) Glucose (70-99(Fasting)) mg/dl POC Glucose (70-99) mg/dl Fasting Glucose 114 H (70-99) mg/dl Lactate (0.4-2.0) mmol/L Uric Acid (2.6-7.2) mg/dl Calcium 8.1 L (8.6-10.3) mg/dl Phosphorus (2.5-4.9) mg/dl Magnesium (1.7-2.4) mg/dl Total Bilirubin 2.9 H (0.2-1.0) mg/dl Direct Bilirubin 2.1 H (0-0.2) mg/dl AST 106 H (13-39) U/L ALT 142 H (7-52) U/L Alkaline Phosphatase 253 H (34-104) U/L Troponin I High Sens (0-20) pg/ml C-Reactive Protein (0-0.5) mg/dl Total Protein 5.8 L (6.0-8.3) gm/dl Albumin 2.7 L (3.4-5.0) gm/dl Globulin (2.5-4.0) gm/dl Albumin/Globulin Ratio (0.9-2) Procalcitonin (0-0.5) ng/ml Urine Color Dark Yellow Urine Appearance Turbid A (Clear) Urine pH 5.5 (4.5-7.5) Ur Specific [place] > 1.045 H (1.000-1.030) Urine Protein 3+ H (Negative) Urine Glucose (UA) Trace H (Negative) Urine Ketones Trace H (Negative) Urine Blood 2+ H (Negative) Urine Nitrite Positive A (Negative) Urine Bilirubin 2+ H (Negative) Urine Urobilinogen Negative (Negative) Ur Leukocyte Esterase Trace H (Negative) Urine WBC (Auto) >30 H (0-5) /hpf Urine RBC (Auto) 10-30 H (0-4) /hpf U Hyaline Cast (Auto) 10-30 H (0-5) /lpf U Epithel Cells (Auto) >30 H (0-5) /lpf Urine Bacteria (Auto) Negative (Negative) Granular Casts 20-30 H (0) /lpf Urine Yeast Not Reportable SARS-CoV-2 (PCR) (Negative) Enterobacterales (PCR) (NotDetected) Influenza Type A (PCR) (Neg) Influenza Type B (PCR) (Neg) RSV (RT-PCR) (Neg) blaIMP Car res Gene PCR (NotDetected) KPC-Carbap Res Gene PCR (NotDetected) blaNDM Car Res Gene PCR (NotDetected) OXA-48 Carbapenem Resis Gene (PCR) (NotDetected) blaVIM Car Res Gene PCR (NotDetected) CTX-M Gene Resistance (PCR) (NotDetected) Bld Cult ID Panel PCR (NotDetected) Diagnostic Findings Exam(s): MRI MRCP EXAM: MR Abdomen Without Intravenous Contrast, MRCP Protocol CLINICAL HISTORY: Gallbladder is distended. TECHNIQUE: Multiplanar magnetic resonance images of the abdomen without intravenous contrast using MRCP protocol. COMPARISON: No relevant prior studies available. FINDINGS: Limitations: The evaluation is limited by respiratory artifact and patient body habitus. Lower thorax: Subsegmental changes noted in the posterior aspect of the lower lobes. Trace pleural effusion suspected. Mild pericardial effusion suggested. Bile ducts: The common bile duct is normal in caliber proximally. In the region of the mid to distal common bile duct, there is a cystic structure measuring 1.5 x 2.2 x 2 cm, immediately superior to the pancreatic neck and head with a suggestion of smaller adjacent cysts inferiorly measuring approximately 8 mm. The most distal common bile duct at the ampulla appears normal in caliber. No definite choledocholithiasis. Gallbladder: There are subcentimeter gallstones layering posteriorly in the gallbladder. Echogenic sludge is also identified within the gallbladder. There is a suggestion of pericholecystic edema. No gallbladder wall thickening. Liver: Grossly unremarkable. No focal abnormality suspected. Pancreas: Unremarkable. No ductal dilation. Spleen: Unremarkable. No splenomegaly. Adrenals: Limited. Kidneys and ureters: Innumerable cortical cysts noted throughout both kidneys. No definite solid enhancing components. The kidneys are somewhat atrophic in appearance. No hydronephrosis. Stomach and bowel: Evaluation the bowel is limited. No obvious focal abnormality. No obstruction. Soft tissues: Evaluation of the overlying soft tissues is limited by artifact. IMPRESSION: 1. There are subcentimeter gallstones layering posteriorly in the gallbladder. Echogenic sludge is also identified within the gallbladder. There is a suggestion of pericholecystic edema. No gallbladder wall thickening. Findings are somewhat equivocal definite; however, acute cholecystitis is difficult to exclude. Functional radionuclide imaging gallbladder may provide additional information if there is high clinical index of suspicion for acute cholecystitis. 2. The common bile duct is normal in caliber proximally. In the region of the mid to distal common bile duct, there is a cystic structure measuring 1.5 x 2.2 x 2 cm, immediately superior to the pancreatic neck and head with a suggestion of smaller adjacent cysts inferiorly measuring approximately 8 mm. The most distal common bile duct at the ampulla appears normal in caliber. No definite choledocholithiasis. Findings are suspicious for a choledochocele. IPMN of the pancreatic head is thought to be less likely. Clear delineation of the cysts in relation to the common bile duct is somewhat limited by artifact. Dedicated high- resolution imaging of the pancreas, both with and without contrast may provide additional information, ideally when the patient is able to breath-hold for the examination. 3. Innumerable cortical cysts noted throughout both kidneys. No definite solid enhancing components. The kidneys are somewhat atrophic in appearance. Please correlate with potential end-stage renal disease and dialysis. CT OF THE ABDOMEN AND PELVIS WITH CONTRAST CLINICAL HISTORY: Abdominal Pain, elevated lactic acid. COMPARISON STUDY: CT of the abdomen and pelvis April 20, 2020. TECHNIQUE: Following IV administration of 117 mL of Optiray, axial images of the abdomen and pelvis were obtained from the lung bases to the proximal femurs. Images were reviewed in the axial, sagittal, and coronal planes. IV contrast was administered without complication. Automated exposure control was utilized for the study. A dose lowering technique was utilized adhering to the principles of ALARA. FINDINGS: Please note that the chest CT will be reported separately. No pneumatosis, free air or portal venous gas is present. No hepatic lesions are present. There is mild intra and extrahepatic biliary ductal dilatation. The gallbladder is mildly distended. There are multiple gallstones within the gallbladder. Pericholecystic stranding is present. There is no peripancreatic i nfiltration or stranding. Diverticulum of the third duodenum is incidentally noted. Spleen, adrenal glands are unremarkable. Bilateral renal atrophy is noted. Numerous bilateral renal calculi are present. There is no hydronephrosis. There are no ureteral calculi. Numerous renal cysts are incidentally noted. There is no evidence for a bowel obstruction. There is colonic diverticulosis without evidence for acute diverticulitis. The appendix is normal. Right hip arthroplasty is incidentally noted. There is contrast within the bladder from recent contrast-enhanced chest CT. IMPRESSION: 1. Findings highly suggestive of acute cholecystitis. 2. Mild biliary ductal dilatation. This could be correlated with obstructive liver function tests. 3. No bowel obstruction. No bowel wall thickening. 4. Sigmoid diverticulosis. No evidence for acute diverticulitis. 5. Bilateral nephrolithiasis. ACT 112: Negative or not required by law.
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
[2022-10-25] MEDS ORDERED: ONDANSETRON INJ 2 MG/ML 2 ML VIAL IV PRN (14:51)
[2022-10-25] MEDS ORDERED: fentaNYL citrate PF 100 MCG/2 ML VIAL IV PRN (14:51)
[2022-10-25] MEDS ORDERED: ePHEDrine sulfate 50 MG/ML AMP IV PRN (14:51)
[2022-10-25] MEDS ORDERED: HYDROmorphone INJ 1 MG/ML SYRINGE IV PRN (14:51)
[2022-10-25] MEDS ORDERED: ATROPINE SULFATE 0.1 MG/ML 10ML SYR IV PRN (14:51)
--- NOTE | 2022-10-25 14:53 | History & Physical Bridge Note ---
Date of Service October 25, 2022 History & Physical Bridge Note I have examined the patient, reviewed the History & Physical and in the interval since the performance of the History & Physical I have noted the following changes of clinical significance: no changes noted EUS/ERCP Patient was explained in detail regarding risks, benefits, limitations and alternatives of the above endoscopic procedure. Risks of intravenous sedation used for procedure were also explained. Risks include, but not limited to perfor ation, bleeding, infection, respiratory distress, cardiac arrest and . Patient is also aware about the possibility of missed lesion. Patient's questions were answered. The patient verbalized understanding the information and agreed to undergo the procedure.
[2022-10-25] MEDS ORDERED: fentaNYL citrate PF 100 MCG/2 ML VIAL ONE (14:56)
[2022-10-25] MEDS ORDERED: ONDANSETRON INJ 2 MG/ML 2 ML VIAL ONE (14:56)
[2022-10-25] MEDS ORDERED: PROPOFOL IV EMULSION 10 MG/ML 20 ML VIAL IV ONE (14:56)
[2022-10-25] MEDS ORDERED: LIDOCAINE 2% 2 ML VIAL/AMP(20MG/ML) INFIL ONE (14:56)
[2022-10-25] MEDS ORDERED: ePHEDrine sulfate 50 MG/ML AMP ONE (15:31)
[2022-10-25] MEDS ORDERED: PHENYLEPHRINE HCL 10 MG/ML VIAL ONE (15:31)
[2022-10-25] MEDS ORDERED: SODIUM CHLORIDE 0.9% PF INJ 10 ML VIAL ONE (15:31)
--- NOTE | 2022-10-25 15:58 | Operative Report ---
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 Any exceptions are noted below.
--- NOTE | 2022-10-25 16:11 | GI REPORT ---
Patient Name: Linwood Milton Procedure Date: 10/25/2022 3:18 PM Date of : 1945 Admit Type: Inpatient Age: 76 Gender: Male Attending MD: Donato Venegas MD, Procedure: Upper GI endoscopy Providers: Donato Venegas MD Referring MD: Malcolm Owen Indications: Abnormal MRI of the GI tract Medicines: General Anesthesia Complications: No immediate complications. Estimated Blood Loss: Estimated blood loss: none. Procedure: Pre-Anesthesia Assessment: - Prior to the procedure, a History and Physical was performed, and patient medications, allergies and sensitivities were reviewed. The patient's tolerance of previous anesthesia was reviewed. - The risks and benefits of the procedure and the sedation options and risks were discussed with the patient. All questions were answered and informed consent was obtained. - Patient identification and proposed procedure were verified prior to the procedure by the physician and the nurse. The procedure was verified in the procedure room. - Pre-procedure physical examination revealed no contraindications to sedation. After obtaining informed consent, the endoscope was passed under direct vision. Throughout the procedure, the patient's blood pressure, pulse, and oxygen saturations were monitored continuously. The Endoscope was introduced through the mouth, and advanced to the second part of duodenum. The upper GI endoscopy was accomplished without difficulty. The patient tolerated the procedure well. Findings: The examined esophagus was normal. Few non-bleeding superficial gastric ulcers with no stigmata of bleeding were found at the gastroesophageal junction and in the gastric body. The largest lesion was 8 mm in largest dimension. The duodenal bulb and second portion of the duodenum were normal. Impression: - Normal esophagus. - Non-bleeding gastric ulcers with no stigmata of bleeding. - Normal duodenal bulb and second portion of the duodenum. - No specimens collected. Recommendation: - Use Protonix (pantoprazole) 40 mg PO BID for 2 months. - Avoid NSAIDs. - Perform an upper GI endoscopy in 2 months. Donato Venegas MD 10/25/2022 4:10:53 PM This report has been signed electronically. Note Initiated On: 10/25/2022 3:18 PM Number of Addenda: 0 I attest to the content of the Intraoperative Record and orders documented therein, exceptions below {[id number]}
--- NOTE | 2022-10-25 16:24 | GI REPORT ---
Patient Name: Linwood Milton Procedure Date: 10/25/2022 3:17 PM Date of : 1945 Admit Type: Inpatient Age: 76 Gender: Male Attending MD: Donato Venegas MD, Procedure: Upper EUS Providers: Donato Venegas MD Referring MD: Malcolm Owen Indications: Abnormal MRCP, Elevated liver enzymes Medicines: General Anesthesia Complications: No immediate complications. Estimated Blood Loss: Estimated blood loss: none. Procedure: Pre-Anesthesia Assessment: - Prior to the procedure, a History and Physical was performed, and patient medications, allergies and sensitivities were reviewed. The patient's tolerance of previous anesthesia was reviewed. - The risks and benefits of the procedure and the sedation options and risks were discussed with the patient. All questions were answered and informed consent was obtained. - Patient identification and proposed procedure were verified prior to the procedure by the physician and the nurse. The procedure was verified in the procedure room. - Pre-procedure physical examination revealed no contraindications to sedation. After obtaining informed consent, the endoscope was passed under direct vision. Throughout the procedure, the patient's blood pressure, pulse, and oxygen saturations were monitored continuously. The Endosonoscope was introduced through the mouth, and advanced to the second part of duodenum. The upper EUS was accomplished without difficulty. The patient tolerated the procedure well. Findings: ENDOSONOGRAPHIC FINDING: : There was no sign of significant endosonographic abnormality in the ampulla. No masses were identified. Moderate hyperechoic material consistent with sludge was visualized endosonographically in the common bile duct. CBD was mildly dilated but no evidence of a choledochocele. Extensive hyperechoic material consistent with sludge was visualized endosonographically in the gallbladder. Many stones were visualized endosonographically in the gallbladder. They were hyperechoic and characterized by shadowing. There was no sign of significant endosonographic abnormality in the visualized portion of the liver. Homogeneous parenchyma was identified. An anechoic and multicystic lesion suggestive of a cyst was identified in the pancreatic head with a dominant large cyst. The lesion measured 30 mm in maximal cross-sectional diameter. There were many compartments thinly septated. The outer wall of the lesion was thin. There was no associated mass. There was no internal debris within the fluid-filled cavity. An isoechoic lesion was identified in the pancreatic tail. The lesion measured 12 mm in maximal cross-sectional diameter. Impression: - There was no sign of significant pathology in the ampulla. - Hyperechoic material consistent with sludge was visualized endosonographically in the common bile duct. Otherwise, there was no evidence of a choledochocele. - Many stones and sludge were visualized endosonographically in the gallbladder. - There was no evidence of significant pathology in the visualized portion of the liver. - A multicystic lesion with large dominant cyst was seen in the pancreatic head, possibly a serous cystadenoma adjacent to an IPMN . 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 - No specimens collected as patient is on high dose ASA. Recommendation: - Perform an upper endoscopic ultrasound (UEUS) in 3 months while of ASA to FNA the pancreatic tail lesion and the cyst. - Perform an ERCP today. Donato Venegas MD 10/25/2022 4:23:36 PM This report has been signed electronically. Note Initiated On: 10/25/2022 3:17 PM Number of Addenda: 0 I attest to the content of the Intraoperative Record and orders documented therein, exceptions below {[id number]}
--- NOTE | 2022-10-25 16:31 | GI REPORT ---
Patient Name: Linwood Milton Procedure Date: 10/25/2022 3:16 PM Date of : 1945 Admit Type: Inpatient Age: 76 Gender: Male Attending MD: Donato Venegas MD, Procedure: ERCP Providers: Donato Venegas MD Referring MD: Malcolm Owen Indications: For therapy of ascending cholangitis, Elevated liver enzymes Medicines: General Anesthesia Complications: No immediate complications. Estimated Blood Loss: Estimated blood loss: none. Procedure: Pre-Anesthesia Assessment: - Prior to the procedure, a History and Physical was performed, and patient medications, allergies and sensitivities were reviewed. The patient's tolerance of previous anesthesia was reviewed. - The risks and benefits of the procedure and the sedation options and risks were discussed with the patient. All questions were answered and informed consent was obtained. - Patient identification and proposed procedure were verified prior to the procedure by the physician and the nurse. The procedure was verified in the procedure room. - Pre-procedure physical examination revealed no contraindications to sedation. After obtaining informed consent, the scope was passed under direct vision. Throughout the procedure, the patient's blood pressure, pulse, and oxygen saturations were monitored continuously. The Duodenoscope was introduced through the mouth, and advanced to the duodenum and used to inject contrast into the bile duct. The ERCP was accomplished without difficulty. The patient tolerated the procedure well. Findings: The assistant boys track coach film was normal. The esophagus was successfully intubated under direct vision. The scope was advanced to a normal major papilla in the descending duodenum without detailed examination of the pharynx, larynx and associated structures, and upper GI tract. The upper GI tract was grossly normal. A 0.025 inch x 270 cm angled Visiglide wire was passed into the biliary tree. The short-nosed traction sphincterotome was passed over the guidewire and the bile duct was then deeply cannulated. Contrast was injected. I personally interpreted the bile duct images. Ductal flow of contrast was adequate. Image quality was adequate. Contrast extended to the main bile duct. Opacification of the entire biliary tree except for the gallbladder was successful. The maximum diameter of the ducts was 9 mm. Biliary sphincterotomy was made with a monofilament traction (standard) sphincterotome using ERBE electrocautery. There was no post-sphincterotomy bleeding. The biliary tree was swept with a 12 mm balloon starting at the bifurcation. Sludge was swept from the duct. Pus was swept from the duct. One 10 Fr by 9 cm plastic biliary stent with a single external flap and a single internal flap was placed into the common bile duct. Bile flowed through the stent. The stent was in good position. Impression: - Normal biliary anatomy with no choledochocele. - A biliary sphincterotomy was performed. - The biliary tree was swept and sludge and pus were found. - One plastic biliary stent was placed into the common bile duct. Recommendation: - [facility]. - Repeat ERCP in 3 months to remove stent. - Refer to a surgeon for cholecystectomy. If the patient is deemed a nonsurgical candidate then we can arrange EUS guided drainage as OP. Donato Venegas MD 10/25/2022 4:31:09 PM This report has been signed electronically. Note Initiated On: 10/25/2022 3:16 PM Number of Addenda: 0 I attest to the content of the Intraoperative Record and orders documented therein, exceptions below {[id number]}
--- NOTE | 2022-10-25 16:43 | Fluoroscopy Report ---
[place] ERCP biliary ductal CLINICAL HISTORY: ERCP COMPARISON STUDY: CT of the abdomen and pelvis and MRCP October 24, 2022. FLUOROSCOPY TIME: 1 minute and 20 seconds. Ka, r: 59.79 mGy FLUOROSCOPIC IMAGES: 12 FINDINGS: Fluoroscopy was provided during ERCP. The common bile duct was cannulated. Filling defects within the common bile duct may reflect calculi. Balloon sweep through the common bile duct was perfo rmed. A biliary stent was placed. IMPRESSION: Fluoroscopy provided during ERCP with placement of a biliary stent. ACT 112: Negative or not required by law. Electronically signed by: Pablo Owusu M.D. 10/25/2022 4:42 PM
--- NOTE | 2022-10-25 17:39 | Anesthesiology Progress Note ---
Date of Service October 25, 2022 Anesthesia Post Procedure Vital Signs Vital Signs: Temp Pulse Pulse Pulse Resp BP Pulse Ox 10/25/22 16:50 93 10/25/22 16:55 96 H 24 102/65 93 10/25/22 16:40 94 H 22 107/65 94 10/25/22 16:30 96 H 22 108/62 92 10/25/22 16:20 99 H 20 111/66 93 10/25/22 16:09 36 C L 95 H 17 106/61 93 10/25/22 14:45 36.8 C 112 H 20 108/71 92 10/25/22 12:22 36.4 C L 83 18 103/69 98 10/25/22 08:40 36.6 C 101 H 18 118/74 96 10/25/22 07:00 100 H 10/24/22 22:00 106 H 10/25/22 02:27 36.7 C 110 H 18 116/73 96 10/25/22 00:02 37.1 C 105 H 18 101/62 95 10/24/22 20:00 10/24/22 22:34 37 C 115 H 18 105/62 95 10/24/22 19:35 36.8 C 120 H 18 113/63 94 10/24/22 18:38 118 H 26 H 92/53 L 94 O2 Del Method O2 Flow Rate 10/25/22 16:50 Nasal Cannula 2 10/25/22 16:55 Nasal Cannula 2 10/25/22 16:40 Oxymask 5 10/25/22 16:30 Oxymask 5 10/25/22 16:20 Oxymask 10 10/25/22 16:09 Oxymask 10 10/25/22 14:45 Room Air 10/25/22 12:22 Room Air 10/25/22 08:40 Nasal Cannula 4.0 10/25/22 07:00 10/24/22 22:00 10/25/22 02:27 Nasal Cannula 10/25/22 00:02 Nasal Cannula 4 10/24/22 20:00 Nasal Cannula 4 10/24/22 22:34 Nasal Cannula 10/24/22 19:35 Nasal Cannula 10/24/22 18:38 Nasal Cannula 4 Pain Intensity Chest: Pain Intensity: 0 Transfer of Care Handoff Completed per policy Notes Mental Status: alert / awake / arousable and participated in evaluation Patient Amnestic to Procedure: Yes Nausea / Vomiting: adequately controlled Pain: adequately controlled Airway Patency, RR, SpO2: see Notes below BP & HR: stable & adequate Hydration State: stable & adequate Anesthetic Complications: no major complications apparent and Pt Satisfied with anesthetic care Notes: Patient had been on and off oxygen during his hospital stay. We decided to keep him on [place] oxygen upon transfer out of PACU given that he just had a general anesthetic. Patient also given incentive spirometer to encourage deep breathing.
[2022-10-26] MEDS: PIPERACILLIN/TAZOBACTAM 4.5 GM in DEXTROSE 5% 100 ML IV SCH ×2 (02:27→15:22)
--- NOTE | 2022-10-26 06:00 | Electrocardiogram Report ---
Test Reason : Blood Pressure : / mmHG Vent. Rate : 089 BPM Atrial Rate : 089 BPM P-R Int : 200 ms QRS Dur : 088 ms QT Int : 370 ms P-R-T Axes : 064 080 051 degrees QTc Int : 450 ms Normal sinus rhythm Poor R wave progression, consider anterior ID vs. lead placement vs. LVH Abnormal ECG When compared with ECG of 06-SEP-2022 19:22, SC interval has decreased Minimal criteria for Anterior infarct are now Present Minimal criteria for Inferior infarct are no longer Present T wave inversion no longer evident in Inferior leads Confirmed by Umer Tate ([id number]) on 10/26/2022 6:00:18 AM Referred By: REFERRED SELF Confirmed By:Umer Tate
[2022-10-26 06:40] LABS: Hematocrit (blood only) 25.8 % (42.0-52.0); Hemoglobin 8.8 g/dl (14.0-18.0); Mean Corpuscular Hemoglobin 30.8 pg (25.0-34.0); Mean Corpuscular Hgb Conc 34.1 g/dL (32.0-36.0); Mean Corpuscular Volume 90.2 fL (80.0-100.0); Mean Platelet Volume 11.6 fL (9.4-12.4); Platelet Count 103 K/uL (130-400); RDW Coefficient of Variation 13.3 % (11.5-14.5); RDW Standard Deviation 44.3 fL (36.4-46.3); Red Blood Count 2.86 M/uL (4.70-6.10); White Blood Count 16.32 K/ul (4.8-10.8)
[2022-10-26 06:59] LABS: Albumin Level 2.7 gm/dl (3.4-5.0); BUN Creatinine Ratio 10.5 (10-20); Calcium 7.9 mg/dl (8.6-10.3); Creatinine Clr Calc Pharmacy 18.1 ml/min; Est GFR (African American) 14.5 ml/min; Est GFR (Non-African American) 12.5 ml/min; Phosphorus 5.4 mg/dl (2.5-4.9); Potassium 4.8 mmol/L (3.5-5.1)
[2022-10-26] MEDS: SUCRALFATE 1 GM TAB PO SCH ×4 (08:34→21:20)
[2022-10-26] MEDS: FERROUS SULFATE 325 MG TAB PO SCH ×2 (08:35→20:18)
[2022-10-26] MEDS: TAMSULOSIN HCL 0.4 MG CAP PO SCH (08:35)
[2022-10-26] MEDS: METOPROLOL TARTRATE 100 MG TAB PO SCH ×2 (08:35→20:17)
[2022-10-26] MEDS: CALCITRIOL 0.25 MCG CAPSULE PO SCH (08:35)
[2022-10-26] MEDS: MIDODRINE HCL 2.5 MG TAB PO SCH ×2 (08:35→13:59)
[2022-10-26] MEDS: PANTOprazole 40 MG TAB PO SCH (08:35)
[2022-10-26] MEDS: FUROSEMIDE 20 MG TAB PO SCH (08:35)
[2022-10-26] MEDS: ASPIRIN 81 MG ECTAB PO SCH (08:35)
[2022-10-26] MEDS: PENTOSAN POLYSULFATE SODIUM 100 MG CAP PO SCH ×2 (08:35→20:17)
[2022-10-26] MEDS: FOLIC ACID 1 MG TAB PO SCH (08:35)
[2022-10-26] MEDS: SODIUM BICARBONATE 650 MG TAB PO SCH (08:36)
--- NOTE | 2022-10-26 08:48 | Hospitalist Progress Note ---
Date of Service October 26, 2022 Assessment & Plan (1) Acute cholecystitis due to biliary calculus: Plan: Concern for sepsis Confirmed Gram neg bacteremia on blood cultures CT suggests cholecystitis with LFTS showing increased bilirubin. MRCP also suggestive, persistent elevated inflammatory markers ERCP with finding of sludge and pus in biliary tree, stent and sphincterotomy placed, surgical attending Dr Bennett feels best to defer surgery and consider outpt EUS drainage Renal dosed Zosyn (2) Lacunar stroke, acute: Plan: Patient became aphasic, stroke alert called on 10/24 He was having word finding problems. NIH stroke scale 3. CT head and CTA hea/neck were negative. Tele stroke provider did not recommend tPA given patient had mild symptoms. Likely lacunar infarct as he is diabetic. Will order ASA 325 mgx1. MRI brain. folate 2mg as await homocysteine results, if level less than 10, ok to stop folate. (3) Chest pain: Plan: 76 year old male w/ PmHx ESRD on dialysis MWF, T2DM, GERD, BPH, HTN admitted for chest pain rule out, found to have acute cholecystitis, sepsis/Gr negative bacteremia and episode consistent with TIA and or small stroke Chest pain: -EKG NSR without acute changes -Troponin 10.0, repeat 6.0. -CTA chest without any evidence for PE, small pericardial effusion. -Ordered complete echo to rule out wall motion abnormalities, pericardial effusion. -Given negative trop and EKG without acute changes, less likely [place]. -Consulted cardiology, does not feel pericardial effusion is physiologic, continue metoprolol ESRD on HD: [id number] -On HD MWF, -Received contrast for CTA. -Consulted nephro for HD management given contrast use. T2DM: -Holding home diabetes medications basal and SSI. HLD: -continue home atorvastatin. Anemia:chronic disease -Hgb 10.7 on admission, slightly lower than baseline 11-12. BPH: -Continue home tamsulosin. DVT prophylaxis: patient able to ambulate less likely [place], no chemoprophylaxis at this time Code status: Full code (4) Diabetes mellitus type 2 in obese: (5) Chronic kidney disease, stage 4 (severe): (6) BPH (benign prostatic hyperplasia): Admission and Anticipated Discharge Date Admission Date: October 23, 2022 Subjective patient is awake and alert he was seen on dialysis. He is much better than he was over the last few days. Likely needing to determine his functional abilities before discharge is considered. Physical Exam Physical Exam: awake and alert, no focal distress cardiac is regular lungs are clear abd is with RUQ tenderness but not acute abdomen or guarding Results & Data Results & Data Vital Signs (Past 12 Hours) Vital Signs Temp Pulse Pulse Resp BP Pulse Ox O2 Del Method 10/26/22 03:53 97.9 F 85 20 117/65 97 Nasal Cannula 10/26/22 00:00 85 10/25/22 23:32 98.4 F 85 19 117/68 96 Nasal Cannula O2 Flow Rate 10/26/22 03:53 2 10/26/22 00:00 10/25/22 23:32 2 Laboratory Results Reviewed CBC reviewed chemistry PG Care Time/CCT Total # of Minutes Spent Total Time Spent with Patient: Total time spent is greater than 50% in coordination of care (as documented) at patient's floor/unit and/or counseling patient: Coding Level of Care Code 18236 SUB INP/OBS CARE 3/50MIN Diagnoses Acute cholecystitis due to biliary calculus K80.00 Lacunar stroke, acute I63.81 Chest pain R07.9 Diabetes mellitus type 2 in obese E11.69; E66.9 Chronic kidney disease, stage 4 (severe) N18.4 BPH (benign prostatic hyperplasia) N40.0
--- NOTE | 2022-10-26 09:07 | Gastroenterology Progress Note ---
Date of Service October 26, 2022 Assessment & Plan (1) Acute cholecystitis due to biliary calculus: (2) Elevated LFTs: (3) Abnormal magnetic resonance cholangiopancreatography (MRCP): (4) Bacteremia: Plan This is a 76 y/o male with ESRD on dialysis, and other comorbidities admitted with right-sided chest pain, then had SVT, then aphasia w/ suspected small lacunar stroke, then had acutely elevated LFTs with bili of 3 in the setting of gram negative bacilli bacteremia, and abnormal imaging suggestive of cholecystitis, cholelithiasis, and possible choledocholithiasis/cyst in the CBD. Yesterday underwent EGD/EUS/ERCP. EGD showed gastric ulcers w/o bleeding. ERCP showed pus and sludge in the CBD which was swept and CBD stent placed. EUS showed many stones in the gallbladder, and a multicystic lesion with large dominant cyst in the pancreatic head (possibly cystadenoma adjacent to IPMN); also a 12 mm lesion seen in the pancreatic tail like pNET. Today LFTs, WBC trending down. On exam, abd soft, nontender. - Trend daily LFTs - Refer to surgeon for cholecystectomy. If pt is not a surgical candidate then we can arrange EUS guided drainage as OP - Repeat EGD in 2 months to assess ulcer healing - Repeat EUS in 3 months while off ASA to FNA the pancreatic lesions, along with repeat ERCP in 3 months to remove stent - Empiric ABX as per primary service - Supportive care with IVF - PPI 40 mg BID x 2 months - Avoid NSAIDs - GI will sign off, please call with questions Admission and Anticipated Discharge Date Admission Date: October 23, 2022 Subjective Patient seen and examined, chart reviewed. No acute events overnight. Pt tolerated breakfast. Feels well; no acute complaints. Denies abd pain, nausea ,vomiting, hematemesis, melena, hematochezia, fever, chills, CP, SOB. Review of Systems Review of Systems: All systems reviewed & are unremarkable except as noted in HPI & below Physical Exam Constitutional: well developed, well nourished (chronically ill) and co mfortable; no acute distress Neck: trachea midline Respiratory: normal respiratory effort, lungs clear to auscultation Gastrointestinal (Abdomen): normal bowel sounds, soft, nontender, no hepatosplenomegaly Inspection/Auscultation: abdomen not distended Skin: no rashes, warm and dry Results & Data Vital Signs (Past 12 Hours) Vital Signs Temp Pulse Pulse Resp BP Pulse Ox O2 Del Method 10/26/22 03:53 36.6 C 85 20 117/65 97 Nasal Cannula 10/26/22 00:00 85 10/25/22 23:32 36.9 C 85 19 117/68 96 Nasal Cannula O2 Flow Rate 10/26/22 03:53 2 10/26/22 00:00 10/25/22 23:32 2 Laboratory Results 10/26/22 10/26/22 10/25/22 Range/Units 05:36 05:36 16:14 WBC 16.32 H (4.8-10.8) K/ul RBC 2.86 L (4.70-6.10) M/uL Hgb 8.8 L (14.0-18.0) g/dl Hct 25.8 L (42.0-52.0) % MCV 90.2 (80.0-100.0) fL MCH 30.8 (25.0-34.0) pg MCHC 34.1 (32.0-36.0) g/dL RDW Std Deviation 44.3 (36.4-46.3) fL RDW Coeff of Dorothy 13.3 (11.5-14.5) % Plt Count 103 L (130-400) K/uL MPV 11.6 (9.4-12.4) fL Immature Gran % (Auto) % Neut % (Auto) % Lymph % (Auto) % [place] % (Auto) % Eos % (Auto) % Baso % (Auto) % Neut # (Auto) (1.40-6.50) K/uL Lymph # (Auto) (1.20-3.40) K/uL [place] # (Auto) (0.11-0.59) K/uL Eos # (Auto) (0.00-0.50) K/uL Baso # (Auto) (0.00-0.20) K/uL Immature Gran # (Auto) (0.01-0.20) K/uL Toxic Vacuolation Dohle Bodies Echinocytes Rouleaux Sodium 131 L (136-145) mmol/L Potassium 4.8 (3.5-5.1) mmol/L Chloride 97 L (98-107) mmol/L Carbon Dioxide 24 (21-32) mmol/L Anion Gap 10 (3-11) BUN 45 H (6-23) mg/dl Creatinine 4.27 H D (0.6-1.4) mg/dl Est Cr Clr Drug Dosing 18.1 ml/min Est GFR ( Amer) 14.5 ml/min Est GFR (Non-Af Amer) 12.5 ml/min BUN/Creatinine Ratio 10.5 (10-20) Glucose 136 H (70-99(Fasting)) mg/dl POC Glucose 123 H (70-99) mg/dl Fasting Glucose (70-99) mg/dl Calcium 7.9 L (8.6-10.3) mg/dl Phosphorus 5.4 H D (2.5-4.9) mg/dl Total Bilirubin (0.2-1.0) mg/dl Direct Bilirubin (0-0.2) mg/dl AST (13-39) U/L ALT (7-52) U/L Alkaline Phosphatase (34-104) U/L Total Protein (6.0-8.3) gm/dl Albumin 2.7 L (3.4-5.0) gm/dl Homocysteine (<11.4) umol/L 10/25/22 10/25/22 10/23/22 Range/Units 10:55 10:55 18:50 WBC 22.19 H (4.8-10.8) K/ul RBC 3.11 L (4.70-6.10) M/uL Hgb 9.5 L (14.0-18.0) g/dl Hct 28.9 L (42.0-52.0) % MCV 92.9 (80.0-100.0) fL MCH 30.5 (25.0-34.0) pg MCHC 32.9 (32.0-36.0) g/dL RDW Std Deviation 47.4 H (36.4-46.3) fL RDW Coeff of Dorothy 13.9 (11.5-14.5) % Plt Count 101 L (130-400) K/uL MPV 11.1 (9.4-12.4) fL Immature Gran % (Auto) 1.3 % Neut % (Auto) 90.5 % Lymph % (Auto) 3.8 % [place] % (Auto) 4.2 % Eos % (Auto) 0.0 % Baso % (Auto) 0.2 % Neut # (Auto) 20.07 H (1.40-6.50) K/uL Lymph # (Auto) 0.84 L (1.20-3.40) K/uL [place] # (Auto) 0.94 H (0.11-0.59) K/uL Eos # (Auto) 0.01 (0.00-0.50) K/uL Baso # (Auto) 0.04 (0.00-0.20) K/uL Immature Gran # (Auto) 0.29 H (0.01-0.20) K/uL Toxic Vacuolation 1+ Dohle Bodies 1+ Echinocytes 1+ Rouleaux 1+ Sodium 132 L (136-145) mmol/L Potassium 5.0 (3.5-5.1) mmol/L Chloride 98 (98-107) mmol/L Carbon Dioxide 25 (21-32) mmol/L Anion Gap 9 (3-11) BUN 33 H (6-23) mg/dl Creatinine 3.64 H D (0.6-1.4) mg/dl Est Cr Clr Drug Dosing 19.8 ml/min Est GFR ( Amer) 17.6 ml/min Est GFR (Non-Af Amer) 15.2 ml/min BUN/Creatinine Ratio (10-20) Glucose (70-99(Fasting)) mg/dl POC Glucose (70-99) mg/dl Fasting Glucose 114 H (70-99) mg/dl Calcium 8.1 L (8.6-10.3) mg/dl Phosphorus (2.5-4.9) mg/dl Total Bilirubin 2.9 H (0.2-1.0) mg/dl Direct Bilirubin 2.1 H (0-0.2) mg/dl AST 106 H (13-39) U/L ALT 142 H (7-52) U/L Alkaline Phosphatase 253 H (34-104) U/L Total Protein 5.8 L (6.0-8.3) gm/dl Albumin 2.7 L (3.4-5.0) gm/dl Homocysteine 12.6 H (<11.4) umol/L Diagnostic Findings EGD: - Normal esophagus. - Non-bleeding gastric ulcers with no stigmata of bleeding. - Normal duodenal bulb and second portion of the duodenum. - No specimens collected. ERCP: Normal biliary anatomy w/ no choledocholithiasis A biliary sphincterotomy was performed The biliary tree was swept and sludge and pus were found One plastic biliary stent was placed into the common bile duct EUS: - There was no sign of significant pathology in the ampulla. - Hyperechoic material consistent with sludge was visualized endosonographically in the common bile duct. Otherwise, there was no evidence of a choledochocele. - Many stones and sludge were visualized endosonographically in the gallbladder. - There was no evidence of significant pathology in the visualized portion of the liver. - A multicystic lesion with large dominant cyst was seen in the pancreatic head, possibly a serous cystadenoma adjacent to an IPMN . 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 - No specimens collected as patient is on high dose ASA.
[2022-10-26 10:42] LABS: Bilirubin Direct 1.1 mg/dl (0-0.2); Bilirubin,Total 1.7 mg/dl (0.2-1.0); Total Protein 5.6 gm/dl (6.0-8.3)
--- NOTE | 2022-10-26 12:06 | Nephrology Progress Note ---
Date of Service October 26, 2022 Assessment & Plan (1) ESRD (end stage renal disease): Plan: HD MWF. Orders for HD today entered into the EHR and reviewed with manufacturing quality inspector. AVF functioning well. Clearance at goal. UF goal 2 L. Renal diet and fluid restriction maintained. Medications appropriate for kidney function. (2) Chest pain: Plan: Etiology unclear. Symptoms resolved. Atrial tachycardia resolved. Cardiology consultation appreciated. CTA negative. No acute EKG changes or concerning elevation in cardiac enzymes. (3) Lacunar stroke, acute: Plan: Remains on tele monitor. Symptoms improving. Aspirin and folate per hospitalist service. (4) Acute cholecystitis due to biliary calculus: Plan: Clinically improving. Surgical consultation reviewed. No immediate plan for surgical intervention at this time. (5) Bacteremia: Plan: Blood cultures 10/24 GNR. Remains on Zosyn. Admission and Anticipated Discharge Date Admission Date: October 23, 2022 Subjective No acute events overnight. No complaints this AM. Alfa was seen and evaluated during hemodialysis. He is tolerating dialysis well. No fevers or chills. Appetite is good. He denies abdominal pain. He denies dyspnea. No chest pain or palpitations. I discussed the plan of care with Dr. Owen. Review of Systems Review of Systems: All systems reviewed & are unremarkable except as noted in HPI & below Physical Exam Constitutional: well developed; no acute distress Eyes: no scleral abnormality and no corneal abnormality ENMT: Mouth: no oral mucosal abnormality and oral mucous membranes not dry Neck: normal visual inspection and trachea midline Respiratory: normal respiratory effort Auscultation: lungs clear to auscultation bilaterally Cardiovascular: Rate/Rhythm: regular rate and + irregularly irregular Heart Sounds: normal S1 and normal S2 Extremities: + AV fistula; no edema Gastrointestinal (Abdomen): Percussion/Palpation: abdomen soft; abdomen nontender and no guarding Musculoskeletal: Extremities: no cyanosis and no clubbing Skin: normal turgor; no jaundice Neurologic: Motor/Sensory: no tremor and no asterixis Psychiatric: Orientation: alert and oriented x 3 Results & Data Vital Signs (Past 12 Hours) Vital Signs Temp Pulse Pulse Pulse Resp BP BP 10/26/22 11:30 82 121/70 10/26/22 11:00 81 119/73 10/26/22 10:30 85 123/80 10/26/22 10:15 80 126/75 10/26/22 09:49 36.7 C 88 10/26/22 08:20 36.9 C 88 19 125/66 10/26/22 07:00 84 10/26/22 03:53 36.6 C 85 20 117/65 Pulse Ox O2 Del Method O2 Flow Rate 10/26/22 11:30 10/26/22 11:00 10/26/22 10:30 10/26/22 10:15 10/26/22 09:49 10/26/22 08:20 92 Room Air 10/26/22 07:00 10/26/22 03:53 97 Nasal Cannula 2 Laboratory Results Laboratory Results - last 24 hr 10/23/22 10/25/22 10/25/22 18:50 10:55 16:14 WBC RBC Hgb Hct MCV MCH MCHC RDW Std Deviation RDW Coeff of Dorothy Plt Count MPV Immature Gran % (Auto) 1.3 Neut % (Auto) 90.5 Lymph % (Auto) 3.8 [place] % (Auto) 4.2 Eos % (Auto) 0.0 Baso % (Auto) 0.2 Neut # (Auto) 20.07 H Lymph # (Auto) 0.84 L [place] # (Auto) 0.94 H Eos # (Auto) 0.01 Baso # (Auto) 0.04 Immature Gran # (Auto) 0.29 H Toxic Vacuolation 1+ Dohle Bodies 1+ Echinocytes 1+ Rouleaux 1+ Sodium Potassium Chloride Carbon Dioxide Anion Gap BUN Creatinine Est Cr Clr Drug Dosing Est GFR ( Amer) Est GFR (Non-Af Amer) BUN/Creatinine Ratio Glucose POC Glucose 123 H Calcium Phosphorus Total Bilirubin Direct Bilirubin AST ALT Alkaline Phosphatase Total Protein Albumin Homocysteine 12.6 H 10/26/22 10/26/22 05:36 05:36 WBC 16.32 H RBC 2.86 L Hgb 8.8 L Hct 25.8 L MCV 90.2 MCH 30.8 MCHC 34.1 RDW Std Deviation 44.3 RDW Coeff of Dorothy 13.3 Plt Count 103 L MPV 11.6 Immature Gran % (Auto) Neut % (Auto) Lymph % (Auto) [place] % (Auto) Eos % (Auto) Baso % (Auto) Neut # (Auto) Lymph # (Auto) [place] # (Auto) Eos # (Auto) Baso # (Auto) Immature Gran # (Auto) Toxic Vacuolation Dohle Bodies Echinocytes Rouleaux Sodium 131 L Potassium 4.8 Chloride 97 L Carbon Dioxide 24 Anion Gap 10 BUN 45 H Creatinine 4.27 H D Est Cr Clr Drug Dosing 18.1 Est GFR ( Amer) 14.5 Est GFR (Non-Af Amer) 12.5 BUN/Creatinine Ratio 10.5 Glucose 136 H POC Glucose Calcium 7.9 L Phosphorus 5.4 H D Total Bilirubin 1.7 H Direct Bilirubin 1.1 H AST 64 H ALT 108 H Alkaline Phosphatase 244 H Total Protein 5.6 L Albumin 2.7 L Homocysteine PG Care Time/CCT Total # of Minutes Spent Total Time Spent with Patient: Total time spent is greater than 50% in coordination of care (as documented) at patient's floor/unit and/or counseling patient: Coding Level of Care Code 74994 SUB INP/OBS CARE 3/50MIN Diagnoses ESRD (end stage renal disease) N18.6 Chest pain R07.9 Lacunar stroke, acute I63.81 Acute cholecystitis due to biliary calculus K80.00 Bacteremia R78.81
--- NOTE | 2022-10-26 17:15 | Surgery Progress Note ---
Date of Service October 26, 2022 Assessment & Plan (1) Acute cholecystitis due to biliary calculus: (2) Bacteremia: (3) Elevated LFTs: (4) Lacunar stroke, acute: (5) ESRD (end stage renal disease): (6) Diabetes mellitus type 2 in obese: Plan POD # 1 s/p EUS/ERCP with biliary stent placement afebrile, vss leukocytosis improving 22k --> 16k t. bili and lfts improving no abdominal pain, n,v today Plan: Discussed EUS/ERCP findings with Dr. Bennett. Recommending conservative management for acute cholecystitis with IV antibiotics and consider outpatient EUS with gallbladder drainage given overall complexity of patient and medical comorbidities. Continue IV Zosyn Monitor wbc Continue medical management [facility] surgery covering this weekend Admission and Anticipated Discharge Date Admission Date: October 23, 2022 Subjective feeling much better today no abdominal pain, chest pain, nausea, vomiting tolerating full liquids without abdominal pain no fevers or chills last night underwent dialysis today Physical Exam Constitutional: WD/WN, vitals as above cooperative and comfortable; no acute distress and not ill appearing Respiratory: normal respiratory effort, lungs clear to auscultation Cardiovascular: RRR, no murmur, no edema Gastrointestinal (Abdomen): Inspection/Auscultation: abdomen normal to inspection; abdomen not distended Percussion/Palpation: abdomen soft; abdomen nontender, no guarding, abdomen not rigid and abdomen not firm Skin: no rashes, warm and dry Psychiatric: A+Ox3, euthymic affect Results & Data Vital Signs (Past 12 Hours) Vital Signs Temp Pulse Pulse Pulse Resp BP BP 10/26/22 15:32 36.9 C 106 H 17 107/68 10/26/22 14:15 36.7 C 80 116/60 10/26/22 14:00 81 112/70 10/26/22 13:30 92 H 114/65 10/26/22 13:00 68 122/66 10/26/22 12:30 87 126/71 10/26/22 12:00 75 125/79 10/26/22 11:30 82 121/70 10/26/22 11:00 81 119/73 10/26/22 10:30 85 123/80 10/26/22 10:15 80 126/75 10/26/22 09:49 36.7 C 88 10/26/22 08:20 36.9 C 88 19 125/66 10/26/22 07:00 84 Pulse Ox O2 Del Method 10/26/22 15:32 92 Room Air 10/26/22 14:15 10/26/22 14:00 10/26/22 13:30 10/26/22 13:00 10/26/22 12:30 10/26/22 12:00 10/26/22 11:30 10/26/22 11:00 10/26/22 10:30 10/26/22 10:15 10/26/22 09:49 10/26/22 08:20 92 Room Air 10/26/22 07:00 Laboratory Results 10/26/22 10/26/22 Range/Units 05:36 05:36 WBC 16.32 H (4.8-10.8) K/ul RBC 2.86 L (4.70-6.10) M/uL Hgb 8.8 L (14.0-18.0) g/dl Hct 25.8 L (42.0-52.0) % MCV 90.2 (80.0-100.0) fL MCH 30.8 (25.0-34.0) pg MCHC 34.1 (32.0-36.0) g/dL RDW Std Deviation 44.3 (36.4-46.3) fL RDW Coeff of Dorothy 13.3 (11.5-14.5) % Plt Count 103 L (130-400) K/uL MPV 11.6 (9.4-12.4) fL Sodium 131 L (136-145) mmol/L Potassium 4.8 (3.5-5.1) mmol/L Chloride 97 L (98-107) mmol/L Carbon Dioxide 24 (21-32) mmol/L Anion Gap 10 (3-11) BUN 45 H (6-23) mg/dl Creatinine 4.27 H D (0.6-1.4) mg/dl Est Cr Clr Drug Dosing 18.1 ml/min Est GFR ( Amer) 14.5 ml/min Est GFR (Non-Af Amer) 12.5 ml/min BUN/Creatinine Ratio 10.5 (10-20) Glucose 136 H (70-99(Fasting)) mg/dl Calcium 7.9 L (8.6-10.3) mg/dl Phosphorus 5.4 H D (2.5-4.9) mg/dl Total Bilirubin 1.7 H (0.2-1.0) mg/dl Direct Bilirubin 1.1 H (0-0.2) mg/dl AST 64 H (13-39) U/L ALT 108 H (7-52) U/L Alkaline Phosphatase 244 H (34-104) U/L Total Protein 5.6 L (6.0-8.3) gm/dl Albumin 2.7 L (3.4-5.0) gm/dl
[2022-10-26] MEDS: allopurinoL 100 MG TAB PO SCH (20:16)
[2022-10-26] MEDS: ATORVASTATIN 20 MG TAB PO SCH (20:18)
[2022-10-27] MEDS: PIPERACILLIN/TAZOBACTAM 4.5 GM in DEXTROSE 5% 100 ML IV SCH ×2 (01:53→14:11)
--- NOTE | 2022-10-27 05:28 | Surgery Progress Note ---
Date of Service October 27, 2022 Assessment & Plan (1) Acute cholecystitis due to biliary calculus: Plan: Patient has been admitted on the hospitalist service. He is status post ERCP with biliary stent placement on 10/25/2022 (postop day #2) Continue diet as tolerated Continue antibiotics in the form of Zosyn Continue analgesics and antiemetics as needed Check a.m. labs when available Patient previously seen by [facility] and due to numerous medical comorbidities conservative management with antibiotics has been recommended. If patient requires additional intervention concerning his gallbladder recommendation was for patient to have a more conservative approach (potential endoscopic management) Admission and Anticipated Discharge Date Admission Date: October 23, 2022 Supervising Physician Co-Signing Physician Notes I agree with the above plan. The patient is improving well since ERCP with stent placement. He has been HD stable and afebrile. He has had marked improvement in leukocytosis with a WBC down to 11 today from 16.32 yesterday. Continue current management. Will f/u am labs. Subjective Patient is sitting in bedside chair. He denies any abdominal pain. He notes he is tolerating a diet consisting of solid food without any exacerbation of abdominal pain. He denies any nausea or vomiting. He denies any fevers, shakes, or chills. Physical Exam Gastrointestinal (Abdomen): Abdomen is soft, nonrigid, nondistended, and nontender to palpation (specifically no pain in the right upper quadrant with palpation). Bowel sounds are present. Results & Data Vital Signs (Past 12 Hours) Vital Signs Temp Pulse Pulse Resp BP Pulse Ox O2 Del Method 10/27/22 03:27 36.6 C 85 21 115/70 91 Room Air 10/26/22 23:24 36.8 C 87 17 126/71 90 Room Air 10/26/22 23:20 85 10/26/22 19:43 37.1 C 97 H 21 124/69 90 Room Air PG Care Time/CCT Total # of Minutes Spent Total Time Spent with Patient: Total time spent is greater than 50% in coordination of care (as documented) at patient's floor/unit and/or counseling patient: Coding Level of Care Code 67673 SUB INP/OBS CARE /25MIN Diagnoses Acute cholecystitis due to biliary calculus K80.00
[2022-10-27 06:29] LABS: Basophils # (auto) 0.02 K/uL (0.00-0.20); Basophils % (auto) 0.2 %; Eosinophils % (auto) 0.9 %; Hematocrit (blood only) 28.2 % (42.0-52.0); Hemoglobin 9.5 g/dl (14.0-18.0); Immature Granulocytes # (auto) 0.04 K/uL (0.01-0.20); Immature Granulocytes % (auto) 0.4 %; Lymphocytes # (auto) 0.83 K/uL (1.20-3.40); Lymphocytes % (auto) 7.5 %; Mean Corpuscular Hemoglobin 30.5 pg (25.0-34.0); Mean Corpuscular Hgb Conc 33.7 g/dL (32.0-36.0); Mean Corpuscular Volume 90.7 fL (80.0-100.0); Monocytes # (auto) 0.91 K/uL (0.11-0.59); Monocytes % (auto) 8.3 %; Neutrophils % (auto) 82.7 %; Platelet Count 106 K/uL (130-400); RDW Coefficient of Variation 13.8 % (11.5-14.5); RDW Standard Deviation 45.4 fL (36.4-46.3); Red Blood Count 3.11 M/uL (4.70-6.10)
[2022-10-27 06:48] LABS: Albumin Globulin Ratio 0.9 (0.9-2); Albumin Level 2.9 gm/dl (3.4-5.0); BUN Creatinine Ratio 6.3 (10-20); Bilirubin,Total 1.6 mg/dl (0.2-1.0); Calcium 8.2 mg/dl (8.6-10.3); Creatinine Clr Calc Pharmacy 24.5 ml/min; Est GFR (African American) 20.9 ml/min; Est GFR (Non-African American) 18.1 ml/min; Globulin 3.3 gm/dl (2.5-4.0); Potassium 3.7 mmol/L (3.5-5.1); Total Protein 6.2 gm/dl (6.0-8.3)
--- NOTE | 2022-10-27 08:58 | Nephrology Progress Note ---
Date of Service October 27, 2022 Assessment & Plan (1) ESRD (end stage renal disease): Plan: * Patient was last dialyzed yesterday without complication. No acute indication for HD today * Will obtain CBC, PRP in am (2) Chest pain: Plan: * Symptoms resolved. Atrial tachycardia resolved. Cardiology consultation appreciated. * CTA negative. No acute EKG changes or concerning elevation in cardiac enzymes. (3) Lacunar stroke, acute: Plan: * Aspirin and folate per hospitalist service. (4) Acute cholecystitis due to biliary calculus: Plan: * Clinically improving * Biliary stent in place * Continue antibiotic therapy * Surgery will consider cholecystectomy once inflammation has resolved (5) Bacteremia: Plan: * 10/24 Blood Cx: Citrobacter - pansensitive. Remains on Zosyn therapy Admission and Anticipated Discharge Date Admission Date: October 23, 2022 Subjective Mr. Milton was evaluated in his hospital room this morning. He was sitting up in a chair and expressed a desire to return home. His speech was fluent and he had no focal neurologic deficit. Mr. Milton denied angina, dyspnea, AMOR, focal weakness or abdominal pain. Review of Systems Constitutional: no fever Eyes: no problem reported Ear, Nose, Mouth, Throat: no problem reported Respiratory: no cough and no dyspnea Cardiovascular: no chest pain Gastrointestinal: no abdominal pain, no vomiting and no diarrhea/loose stools Genitourinary: no hematuria or no flank pain Physical Exam Constitutional: not in distress Eyes: PERRL, conjunctivae normal, anicteric sclerae ENMT: external ear and nose normal, oropharynx normal Neck: trachea midline, no thyromegaly Respiratory: normal respiratory effort, lungs clear to auscultation Cardiovascular: Rate/Rhythm: regular rate and regular rhythm Extremities: + edema (1+ pretibial pitting edema) and + AV fistula (LUE BC AVF + bruit) Gastrointestinal (Abdomen): normal bowel sounds, soft, nontender, no hepatosplenomegaly Neurologic: Speech / Cognition: normal speech and normal cognition Results & Data Vital Signs (Past 12 Hours) Vital Signs Temp Pulse Pulse Resp BP Pulse Ox O2 Del Method 10/27/22 08:28 36.6 C 88 18 119/66 94 Room Air 10/27/22 07:00 81 10/27/22 03:27 36.6 C 85 21 115/70 91 Room Air 10/26/22 23:24 36.8 C 87 17 126/71 90 Room Air 10/26/22 23:20 85 Laboratory Results Laboratory Tests 10/24/22 10/27/22 10/27/22 16:58 05:44 05:44 WBC 11.00 H Hgb 9.5 L Hct 28.2 L Plt Count 106 L Sodium 134 L Potassium 3.7 D Chloride 98 Carbon Dioxide 28 BUN 20 D Creatinine 3.15 H D Glucose 121 H Calcium 8.2 L Total Bilirubin 3.3 H D 1.6 H AST 47 H ALT 88 H Alkaline Phosphatase 300 H Albumin 2.9 L PG Care Time/CCT Total # of Minutes Spent Total Time Spent with Patient: Total time spent is greater than 50% in coordination of care (as documented) at patient's floor/unit and/or counseling patient: Coding Level of Care Code 26951 SUB INP/OBS CARE 3/50MIN Diagnoses ESRD (end stage renal disease) N18.6 Chest pain R07.9 Lacunar stroke, acute I63.81 Acute cholecystitis due to biliary calculus K80.00 Bacteremia R78.81
[2022-10-27] MEDS: TAMSULOSIN HCL 0.4 MG CAP PO SCH (09:22)
[2022-10-27] MEDS: FOLIC ACID 1 MG TAB PO SCH (09:22)
[2022-10-27] MEDS: FUROSEMIDE 20 MG TAB PO SCH (09:22)
[2022-10-27] MEDS: FERROUS SULFATE 325 MG TAB PO SCH ×2 (09:22→20:43)
[2022-10-27] MEDS: CALCITRIOL 0.25 MCG CAPSULE PO SCH (09:22)
[2022-10-27] MEDS: PENTOSAN POLYSULFATE SODIUM 100 MG CAP PO SCH ×2 (09:22→20:44)
[2022-10-27] MEDS: METOPROLOL TARTRATE 100 MG TAB PO SCH ×2 (09:22→20:44)
[2022-10-27] MEDS: PANTOprazole 40 MG TAB PO SCH (09:23)
[2022-10-27] MEDS: SUCRALFATE 1 GM TAB PO SCH ×4 (09:23→20:45)
[2022-10-27] MEDS: ASPIRIN 81 MG ECTAB PO SCH (09:23)
--- NOTE | 2022-10-27 15:12 | Hospitalist Progress Note ---
Date of Service October 27, 2022 Assessment & Plan (1) Acute cholecystitis due to biliary calculus: Plan: Concern for sepsis Confirmed Gram neg bacteremia on blood cultures Citrobacter pansensitive CT suggests cholecystitis with LFTS showing increased bilirubin. MRCP also suggestive, persistent elevated inflammatory markers ERCP with finding of sludge and pus in biliary tree, stent and sphincterotomy placed, surgical attending Dr Bennett feels best to defer surgery and consider outpt EUS drainage Renal dosed Zosyn likely will go home on Augmentin or similar (2) Lacunar stroke, acute: Plan: Patient became aphasic, stroke alert called on 10/24 He was having word finding problems. NIH stroke scale 3. CT head and CTA hea/neck were negative. Tele stroke provider did not recommend tPA given patient had mild symptoms. Likely lacunar infarct as he is diabetic. Will order ASA 325 mgx1. MRI brain. Confirms lacunar infarction folate 2mg as await homocysteine results, level is greater than than 10, continue folate and at discharge. (3) Chest pain: Plan: 76 year old male w/ PmHx ESRD on dialysis MWF, T2DM, GERD, BPH, HTN admitted for chest pain rule out, found to have acute cholecystitis, sepsis/Gr negative bacteremia and episode consistent with TIA and or small stroke Chest pain: -EKG NSR without acute changes -Troponin 10.0, repeat 6.0. -CTA chest without any evidence for PE, small pericardial effusion. Echo limited study without intra arterial shunt -Consulted cardiology, does not feel pericardial effusion is physiologic, continue metoprolol ESRD on HD: ckd4 -On HD MWF, -Received contrast for CTA. -Consulted nephro for HD management given contrast use. T2DM: -Holding home diabetes medications basal and SSI. HLD: -continue home atorvastatin. Anemia:chronic disease -Hgb 10.7 on admission, slightly lower than baseline 11-12. BPH: -Continue home tamsulosin. DVT prophylaxis: patient able to ambulate less likely [place], no chemoprophylaxis at this time Code status: Full code (4) Diabetes mellitus type 2 in obese: (5) Chronic kidney disease, stage 4 (severe): (6) BPH (benign prostatic hyperplasia): Admission and Anticipated Discharge Date Admission Date: October 23, 2022 Subjective Patient without complaints or problems he is feeling much better and he feels near his baseline. He is still only had 1 regular consistency meal It was explained to him the plan to have a nonsurgical approach to his cholecystitis with possible endoscopic drainage in the short-term future with Meghna Physical Exam Physical Exam: awake and alert, no focal distress cardiac is regular lungs are clear abd is without RUQ tenderness still not acute abdomen or guarding Results & Data Results & Data Vital Signs (Past 12 Hours) Vital Signs Temp Pulse Pulse Resp BP Pulse Ox O2 Del Method 10/27/22 11:07 97.7 F 91 H 18 128/77 94 Room Air 10/27/22 08:28 97.9 F 88 18 119/66 94 Room Air 10/27/22 07:00 81 10/27/22 03:27 97.9 F 85 21 115/70 91 Room Air Laboratory Results Reviewed CBC Reviewed chemistry Reviewed liver function test Reviewed albumin this is low consistent with possible mild malnutrition PG Care Time/CCT Total # of Minutes Spent Total Time Spent with Patient: Total time spent is greater than 50% in coordination of care (as documented) at patient's floor/unit and/or counseling patient: Coding Level of Care Code 16156 SUB INP/OBS CARE 2/35MIN Diagnoses Acute cholecystitis due to biliary calculus K80.00 Lacunar stroke, acute I63.81 Chest pain R07.9 Diabetes mellitus type 2 in obese E11.69; E66.9 Chronic kidney disease, stage 4 (severe) N18.4 BPH (benign prostatic hyperplasia) N40.0
[2022-10-27] MEDS: ATORVASTATIN 20 MG TAB PO SCH (20:43)
[2022-10-27] MEDS: allopurinoL 100 MG TAB PO SCH (20:44)
--- NOTE | 2022-10-27 21:25 | Electrocardiogram Report ---
Test Reason : Blood Pressure : / mmHG Vent. Rate : 120 BPM Atrial Rate : 120 BPM P-R Int : 200 ms QRS Dur : 090 ms QT Int : 324 ms P-R-T Axes : 057 -05 010 degrees QTc Int : 457 ms Sinus tachycardia with Premature atrial complexes Possible Inferior infarct , age undetermined Abnormal ECG When compared with ECG of 23-OCT-2022 00:31, Premature atrial complexes are now Present Borderline criteria for Inferior infarct are now Present Confirmed by Umer Tate ([id number]) on 10/27/2022 9:25:05 PM Referred By: REFERRED SELF Confirmed By:Umer Tate
--- NOTE | 2022-10-27 22:09 | Electrocardiogram Report ---
Test Reason : Blood Pressure : / mmHG Vent. Rate : 123 BPM Atrial Rate : 123 BPM P-R Int : 232 ms QRS Dur : 080 ms QT Int : 294 ms P-R-T Axes : 000 -05 018 degrees QTc Int : 420 ms Sinus tachycardia with 1st degree A-V block Cannot rule out Inferior infarct (cited on or before 06-SEP-2022) Abnormal ECG When compared with ECG of 23-OCT-2022 16:42, Premature atrial complexes are no longer Present NV interval has increased Confirmed by Umer Tate ([id number]) on 10/27/2022 10:08:55 PM Referred By: REFERRED SELF Confirmed By:Umer Tate
[2022-10-28] MEDS: PIPERACILLIN/TAZOBACTAM 4.5 GM in DEXTROSE 5% 100 ML IV SCH (01:42)
--- NOTE | 2022-10-28 05:10 | Surgery Progress Note ---
Date of Service October 28, 2022 Assessment & Plan (1) Acute cholecystitis due to biliary calculus: Plan: Patient has been admitted on the hospitalist service. He is status post ERCP with biliary stent placement on 10/25/2022 (postop day #3) Continue diet as tolerated Continue antibiotics in the form of Zosyn while hospitalized Continue analgesics and antiemetics as needed Check a.m. labs when available [facility] surgery performed patient's initial surgical consultation and due to numerous medical comorbidities conservative management with antibiotics has been recommended. It has also been recommended that if patient requires additional intervention concerning his gallbladder a more conservative approach (potential endoscopic management) should be considered Plan I have seen this patient this am. Leukocytosis was resolving on lab work yesterday, today there was a slight bump up. He has remained afebrile and is tolerating a diet. LFTs are continuing to improve with the bilirubin very slowly improving. The patient is very anxious to go home. His lab work is very slowly improving. I would be more inclined to get him into the normal range prior to discharge but suggest F/U with GI for their opinion/ their recommendation as this is monitoring of how well the stent is serving its intended purpose and they know what their expectations are after their procedure. Admission and Anticipated Discharge Date Admission Date: October 23, 2022 Subjective Patient sleeping comfortably in bed and easily arousable. He notes that he has not had any nausea or vomiting or abdominal pain overnight. He continues to tolerate solid food without issues. Physical Exam Gastrointestinal (Abdomen): Abdomen is soft, nonrigid, and nondistended. There is no pain with palpation and no rebound tenderness or guarding. Results & Data Vital Signs (Past 12 Hours) Vital Signs Temp Pulse Pulse Resp BP Pulse Ox O2 Del Method 10/28/22 03:22 36.4 C L 81 18 136/73 94 Room Air 10/28/22 00:05 37.0 C 77 20 125/78 95 Room Air 10/27/22 22:57 78 10/27/22 19:50 36.7 C 83 18 119/64 94 Room Air 10/27/22 18:00 36.7 C PG Care Time/CCT Total # of Minutes Spent Total Time Spent with Patient: Total time spent is greater than 50% in coordination of care (as documented) at patient's floor/unit and/or counseling patient: Coding Level of Care Code 34217 SUB INP/OBS CARE Diagnoses Acute cholecystitis due to biliary calculus K80.00
[2022-10-28 07:23] LABS: BUN Creatinine Ratio 7.1 (10-20); Calcium 8.1 mg/dl (8.6-10.3); Creatinine Clr Calc Pharmacy 19.5 ml/min; Est GFR (African American) 15.9 ml/min; Est GFR (Non-African American) 13.7 ml/min; Potassium 3.6 mmol/L (3.5-5.1)
[2022-10-28] MEDS: FOLIC ACID 1 MG TAB PO SCH (08:11)
[2022-10-28] MEDS: FERROUS SULFATE 325 MG TAB PO SCH (08:11)
[2022-10-28] MEDS: CALCITRIOL 0.25 MCG CAPSULE PO SCH (08:11)
[2022-10-28] MEDS: FUROSEMIDE 20 MG TAB PO SCH (08:11)
[2022-10-28] MEDS: SUCRALFATE 1 GM TAB PO SCH (08:11)
[2022-10-28] MEDS: METOPROLOL TARTRATE 100 MG TAB PO SCH (08:12)
[2022-10-28] MEDS: PENTOSAN POLYSULFATE SODIUM 100 MG CAP PO SCH (08:12)
[2022-10-28] MEDS: PANTOprazole 40 MG TAB PO SCH (08:12)
[2022-10-28] MEDS: ASPIRIN 81 MG ECTAB PO SCH (08:12)
[2022-10-28] MEDS: TAMSULOSIN HCL 0.4 MG CAP PO SCH (08:12)
[2022-10-28 08:25] LABS: Hematocrit (blood only) 27.7 % (42.0-52.0); Hemoglobin 9.2 g/dl (14.0-18.0); Mean Corpuscular Hemoglobin 30.4 pg (25.0-34.0); Mean Corpuscular Hgb Conc 33.2 g/dL (32.0-36.0); Mean Corpuscular Volume 91.4 fL (80.0-100.0); Mean Platelet Volume 12.3 fL (9.4-12.4); Platelet Count 101 K/uL (130-400); RDW Coefficient of Variation 13.9 % (11.5-14.5); RDW Standard Deviation 47.3 fL (36.4-46.3); Red Blood Count 3.03 M/uL (4.70-6.10); White Blood Count 11.19 K/ul (4.8-10.8)
[2022-10-28 08:34] LABS: Albumin Level 2.9 gm/dl (3.4-5.0); Bilirubin Direct 0.8 mg/dl (0-0.2); Bilirubin,Total 1.5 mg/dl (0.2-1.0); Total Protein 6.3 gm/dl (6.0-8.3)
--- NOTE | 2022-10-28 08:53 | Nephrology Progress Note ---
Date of Service October 28, 2022 Assessment & Plan (1) ESRD (end stage renal disease): Plan: * Patient was last dialyzed 10/26/22 without complication. No acute indication for HD today * Will obtain CBC, PRP in am * If discharge is anticipated, please have patient resume his regular outpatient HD at [facility] on Saturday (2) Chest pain: Plan: * Symptoms resolved. Atrial tachycardia resolved. Cardiology consultation appreciated. * CTA negative. No acute EKG changes or concerning elevation in cardiac enzymes. (3) Lacunar stroke, acute: Plan: * Aspirin and folate per hospitalist service. (4) Acute cholecystitis due to biliary calculus: Plan: * Clinically improving * Biliary stent in place * Continue antibiotic therapy * Will need outpatient surgery follow up (5) Bacteremia: Plan: * 10/24 Blood Cx: Citrobacter - pansensitive. Remains on Zosyn therapy Admission and Anticipated Discharge Date Admission Date: October 23, 2022 Subjective Mr. Milton was evaluated in his hospital room this morning. He was sitting up in a chair and expressed a desire to return home. His speech was fluent and he had no focal neurologic deficit. Mr. Milton denied angina, dyspnea, AMOR, focal weakness or abdominal pain. Review of Systems Constitutional: no fever Eyes: no problem reported Ear, Nose, Mouth, Throat: no problem reported Respiratory: no cough and no dyspnea Cardiovascular: no chest pain Gastrointestinal: no abdominal pain, no vomiting and no diarrhea/loose stools Genitourinary: no hematuria or no flank pain Physical Exam Constitutional: not in distress Eyes: PERRL, conjunctivae normal, anicteric sclerae ENMT: external ear and nose normal, oropharynx normal Neck: trachea midline, no thyromegaly Respiratory: normal respiratory effort, lungs clear to auscultation Cardiovascular: Rate/Rhythm: regular rate and regular rhythm Extremities: + edema (1+ pretibial pitting edema) and + AV fistula (LUE BC AVF + bruit) Gastrointestinal (Abdomen): normal bowel sounds, soft, nontender, no hepatosplenomegaly Neurologic: Speech / Cognition: normal speech and normal cognition Results & Data Vital Signs (Past 12 Hours) Vital Signs Temp Pulse Pulse Resp BP Pulse Ox O2 Del Method 10/28/22 07:50 36.6 C 86 18 134/74 96 Room Air 10/28/22 07:00 81 10/28/22 03:22 36.4 C L 81 18 136/73 94 Room Air 10/28/22 00:05 37.0 C 77 20 125/78 95 Room Air 10/27/22 22:57 78 Laboratory Results Laboratory Tests 10/28/22 10/28/22 10/28/22 06:05 06:05 07:59 WBC 11.19 H Hgb 9.2 L Hct 27.7 L Plt Count 101 L Sodium 134 L Potassium 3.6 Chloride 98 Carbon Dioxide 27 BUN 28 H Creatinine 3.96 H D Glucose 130 H Calcium 8.1 L Total Bilirubin 1.5 H AST 37 ALT 66 H Alkaline Phosphatase 274 H Albumin 2.9 L PG Care Time/CCT Total # of Minutes Spent Total Time Spent with Patient: Total time spent is greater than 50% in coordination of care (as documented) at patient's floor/unit and/or counseling patient: Coding Level of Care Code 71852 SUB INP/OBS CARE 3/50MIN Diagnoses ESRD (end stage renal disease) N18.6 Chest pain R07.9 Lacunar stroke, acute I63.81 Acute cholecystitis due to biliary calculus K80.00 Bacteremia R78.81
--- NOTE | 2022-10-28 16:35 | Discharge Summary ---
Date of Service October 28, 2022 Admission HPI Per Admitting Provider Linwood is a 76 year old male w/ PmHx ESRD on dialysis MWF, T2DM, GERD, BPH, HTN coming in to the ED for R sided chest pain he developed yesterday during dialysis. Patient states that he was in his dialysis session yesterday when he started to develop some R sided chest pain along the lower right chest as well as occasionally at his R shoulder. The pain is difficult for him to put a number on but around 8/10 and achey in nature. He said the pain is constant at the R lower chest but occasional at the R shoulder. He is unsure if it is worse with exertion as he did not exert himself too much prior to arrival. He has occasional nausea even before this, no vomiting, no sweating or palpitations or shortness of breath. He states he was concerned about the persistence of the pain and so came into the ED. He denies any past history of any cardiac issues. In the ED hgb 10.7, WBC 10.69, electrolytes WNL, troponin negative x2. CTA difficult study but no definite large/central PE, small pericardial effusion. Principal Diagnosis cholecystitis status post ERCP with sphincterotomy and biliary stent with expression of pus, concern for sepsis now sepsis resolved gram-negative bacteremia confirmed by blood cultures acute lacunar infarction metabolic encephalopathy since resolved end-stage renal disease on dialysis Discharge Exam patient awake alert appropriate has no complaints or problems is disappointed about not having cholecystectomy but is understanding that his recent stroke places him at anesthesia risk. Subsequently he is slated to have outpatient endoscopic attention to his gallbladder Discharge Data Allergies Allergy/AdvReac Type Severity Reaction Status Date / Time doxycycline Allergy Unknown genital Verified 09/28/22 07:19 area burning sensation. Sulfa (Sulfonamide Allergy Unknown genital Verified 09/28/22 07:19 Antibiotics) area burning sensation. Consultations 10/23/22 05:08 ED Decision to Admit Stat 10/23/22 06:26 Consult Cardiology Routine Consult Nephrology Routine 10/24/22 18:21 Consult Gastroenterology Routine 10/24/22 18:23 Consult General Surgery Routine Procedures Performed Operation Date: 10/25/22 11:00 Actual Procedures p Endoscopic Retrograde Cholangiopancreato - Donato Venegas MD s Endoscopic Ultrasonography Upper - Donato Venegas MD s Esophagogastroduodenoscopy - Donato Venegas MD Ordered Studies 10/23/22 03:12 CT angio chest PE protocol Stat 10/23/22 17:16 CT angio neck with con Stat CT head/brain wo con Stat CTA head w con [CT angio head w con] Stat 10/23/22 18:18 MR brain wo con Routine 10/24/22 16:15 CT for pulmonary embolism PE [CT angio chest PE protocol] Stat 10/24/22 17:35 CT Abd and Pelvis [CT abd pelvis IV con only] Stat 10/24/22 20:53 MR MRCP Routine 10/25/22 15:00 FL ERCP biliary ductal Routine 10/25/22 15:14 US upper EUS PACS images Routine Hospital Course (1) Acute cholecystitis due to biliary calculus: Concern for sepsis Confirmed Gram neg bacteremia on blood cultures Citrobacter pansensitive CT suggests cholecystitis with LFTS showing increased bilirubin. MRCP also suggestive, persistent elevated inflammatory markers ERCP with finding of sludge and pus in biliary tree, stent and sphincterotomy placed, surgical attending Dr Bennett feels best to defer surgery and consider outpt EUS drainage Renal dosed Zosyn likely will go home on Augmentin with dosing augmented on days of dialysis (2) Lacunar stroke, acute: Patient became aphasic, stroke alert called on 10/24 He was having word finding problems. NIH stroke scale 3. CT head and CTA hea/neck were negative. Tele stroke provider did not recommend tPA given patient had mild symptoms. Likely lacunar infarct as he is diabetic. Will order ASA 325 mgx1. MRI brain. Confirms lacunar infarction folate 2mg as await homocysteine results, level is greater than than 10, continue folate and at discharge. (3) Chest pain: 76 year old male w/ PmHx ESRD on dialysis MWF, T2DM, GERD, BPH, HTN admitted for chest pain rule out, found to have acute cholecystitis, sepsis/Gr negative bacteremia and episode consistent with TIA and or small stroke Chest pain: -EKG NSR without acute changes -Troponin 10.0, repeat 6.0. -CTA chest without any evidence for PE, small pericardial effusion. Echo limited study without intra arterial shunt -Consulted cardiology, does not feel pericardial effusion is physiologic, continue metoprolol ESRD on HD: ckd4 -On HD MWF, -Received contrast for CTA. -Consulted nephro for HD management given contrast use. T2DM: -Holding home diabetes medications basal and SSI. HLD: -continue home atorvastatin. Anemia:chronic disease -Hgb 10.7 on admission, slightly lower than baseline 11-12. BPH: -Continue home tamsulosin. Code status: Full code (4) Diabetes mellitus type 2 in obese: (5) Chronic kidney disease, stage 4 (severe): (6) BPH (benign prostatic hyperplasia): Total Time Total Time Spent Total Time Spent (In Minutes): it required greater than 30 minutes to prepare this patient for discharge Discharge Plan Discharge Items Patient Disposition: Home - Self-Care Reason For Visit: STROKE Discharge Diagnosis: cholecystitis lacunar stroke esrd on dialysis Activity: Per Instructions section Activity Comment: gradually return to your activity Non-emergency contact: Primary Care Provider and Speech And Language Tutor Call non-emergency contact if: your symptoms worsen Follow-up/Referrals: Leon Lainez DO [Primary Care Provider] - (Patient will make PCP follow up appointment.) Donato Venegas MD [Physician] - Diet: Low Fat Addtl Attending Provider Instructions: please eat a low fat diet keep watch for fever, nausea and vomiting or worsening abdominal pain please be sure to connect to [facility] to have your procedure to adress your gall bladder take your antibiotic every morning and take an additional dose after your dialysis session Pending Studies at Discharge: No Stand-Alone Forms: My [employer], Smoking Cessation Medications and DC Order Prescriptions: New amoxicillin-pot clavulanate 875-125 mg tablet 1 tab PO BID Qty: 36 0RF Rx Instructions: take twice a day but take an extra dose after dialysis Continued tamsulosin 0.4 mg capsule 0.4 mg PO QAM Qty: 90 3RF Patient Comments: sometimes at night dutasteride [Avodart] 0.5 mg capsule 0.5 mg PO QAM Qty: 90 3RF allopurinol 100 mg tablet 100 mg PO QPM Qty: 90 3RF nystatin 100,000 unit/gram powder 1 applic TOP TID PRN (Reason: Skin Irritation) Qty: 30 1RF (DME) pen needle, diabetic [BD Ultra-Fine Shira Pen Needle] 32 gauge x 5/32" needle See Rx Instructions .ROUTE .MEDSUPPLY Qty: 400 3RF Rx Instructions: use to inject insulin 4 times daily calcitriol 0.25 mcg capsule 0.25 mcg PO DAILY Qty: 90 3RF Tresiba FlexTouch U-200 200 unit/mL (3 mL) insulin pen 22 - 25 unit SUBCUT HS Qty: 9 3RF Hold Instructions: 70 units then change to 65 once staring trulicity Rx Instructions: Takes at midnight sucralfate 1 gram tablet 1,000 mg PO QID 90 Days Qty: 360 1RF furosemide 20 mg tablet 20 mg PO QAM Qty: 90 3RF pantoprazole 40 mg tablet,delayed release (DR/EC) 40 mg PO QAM Qty: 90 1RF Trulicity 1.5 mg/0.5 mL pen injector 1.5 mg subcut WK Qty: 2 5RF Rx Instructions: Saturday atorvastatin 20 mg tablet 20 mg PO HS Qty: 90 3RF (DME) FreeStyle Lite Strips Strip See Dose Instructions .ROUTE .MEDSUPPLY Qty: 200 3RF Dose Instruction: As directed Rx Instructions: TEST 4 TIME DAILY AND PRN dx E11.9 metoprolol tartrate 100 mg tablet 100 mg PO BID Qty: 90 3RF Rx Instructions: Pt started taking 100mg by mouth twice daily on 09/05/22, has not taken anymore doses as pt is concerned about the increase in dose from 25mg twice daily. sodium bicarbonate 650 mg tablet 1,300 mg PO BID Qty: 360 3RF Rx Instructions: Pt started taking 1300mg by mouth twice daily on 09/05/22, has not taken anymore doses as pt is concerned about the increase in dose from 650mg once daily. Systane (propylene glycol) 0.4-0.3 % drops 1 drp ophthalmic (eye) QID ferrous sulfate 325 mg (65 mg iron) Tablet 325 mg PO BID Elmiron 100 mg Capsule 100 mg PO BID Discharge Orders: Discharge Order (Routine); Ordered 10/28/22 Ordered By: Malcolm wOen Admission Data Admit Date/Time: 10/23/22 21:13 Attending Provider: Malcolm Owen Admit Provider: Carlos Castro Primary Care Provider: Leon Lainez Other Providers: Jules Landon ; Leroy Reid ; Dave Davalos ; Cal Silva ; Linwood Cruz ; Kuldip Kunz ; Luis Luna Jr ; Umer Tate ; Chica Lam ; Millicent Girard ; Jarrod Gray ; Shahab Khan ; Stas Kelly ; Nataly Greenberg ; Edel Zabala ; Gucci Beasley ; Ashwin Rowell ; Linwood Reynoso V. ; Camden Cortez ; Manish Mendez ; Milind Fowler ; Ryder Zhang ; Radha Pacheco ; Zehra Lunsford ; Yarely Hernández ; Sandra Ríos ; Ranjit Card ; Zacarias Lopez ; Jennifer Snow ; Shiraz Vazquez ; Cedric Núñez ; Kelsey Murry ; Harriet Thomas ; Shirlene Babin ; Gilma Mcdowell ; Donato Venegas ; Felton Chacon ; Ranulfo Salter ; Mandy Layton ; Bird Oden Jr ; Héctor Bennett Other Interventions: Discharge Summary Assessment (RN) Last Done: 10/28/22 14:20 Coding Level of Care Code 50933 INP/OBS DISCH >30 MIN Diagnoses Acute cholecystitis due to biliary calculus K80.00 Lacunar stroke, acute I63.81 Chest pain R07.9 Diabetes mellitus type 2 in obese E11.69; E66.9 Chronic kidney disease, stage 4 (severe) N18.4 BPH (benign prostatic hyperplasia) N40.0
--- NOTE | 2022-10-29 07:59 | Electrocardiogram Report ---
Test Reason : Blood Pressure : / mmHG Vent. Rate : 134 BPM Atrial Rate : 134 BPM P-R Int : 172 ms QRS Dur : 090 ms QT Int : 332 ms P-R-T Axes : 000 -07 007 degrees QTc Int : 495 ms Poor data quality, interpretation may be adversely affected Sinus tachycardia Cannot rule out Inferior infarct (cited on or before 06-SEP-2022) Poor R wave progression, consider anterior VA vs. lead placement vs. LVH Abnormal ECG When compared with ECG of 24-OCT-2022 04:11, MA interval has decreased Confirmed by Umer Tate ([id number]) on 10/29/2022 7:58:46 AM Referred By: REFERRED SELF Confirmed By:Umer Tate
== END 2022-10-28 15:11 | disposition home or self-care (01) | DRG 871 ==
LOC: ED 00:24 → 4W 00:24 → SUATTDRO 05:42 → 4W 06:03 → SUATTDRO 21:13

== ENCOUNTER 2023-04-18 10:14 | Observation (INO) ==
--- NOTE | 2023-02-22 16:03 | PAT Medication Instructions ---
Medication Instructions Date of Service February 22, 2023 Home Medications Medication Instructions Recorded dutasteride 0.5 mg capsule 0.5 mg PO QAM #90 caps 06/26/21 (Avodart) pen needle, diabetic 32 gauge x #400 ea 03/07/22" (BD Ultra-Fine Shira Pen Needle) furosemide 20 mg tablet 20 mg PO QAM #90 tabs 07/09/22 atorvastatin 20 mg tablet 20 mg PO HS #90 tabs 09/06/22 FreeStyle Lite Strips (blood sugar #200 ea 09/20/22 diagnostic) folic acid 800 mcg tablet 800 mcg PO DAILY #30 tabs 10/28/22 sucralfate 1 gram tablet 1,000 mg PO QID 90 days #360 tabs 12/11/22 allopurinol 100 mg tablet 100 mg PO QPM #90 tabs 12/28/22 nystatin 100,000 unit/gram topical 1 applic topical TID PRN Skin 12/28/22 powder Irritation #30 grams tirzepatide 5 mg/0.5 mL 5 mg (0.5 mL) subcut .weekly #2 mL 02/07/23 subcutaneous pen injector (Mounjaro) pantoprazole 40 mg tablet,delayed 40 mg PO BID #180 tabs 02/12/23 release metoprolol tartrate 100 mg tablet 100 mg PO BID #90 tabs 02/22/23 pentosan polysulfate sodium 100 mg capsule (Elmiron) 100 mg PO QAM dutasteride 0.5 mg capsule (Avodart) 0.5 mg PO QAM furosemide 20 mg tablet 20 mg PO QAM atorvastatin 20 mg tablet 20 mg PO HS folic acid 800 mcg tablet 800 mcg PO DAILY sucralfate 1 gram tablet 1,000 mg PO QID allopurinol 100 mg tablet 100 mg PO QPM nystatin 100,000 unit/gram topical powder 1 applic topical TID PRN tirzepatide 5 mg/0.5 mL subcutaneous pen injector (Mounjaro) 5 mg (0.5 mL) subcut .weekly pantoprazole 40 mg tablet,delayed release 40 mg PO BID aspirin 81 mg tablet,delayed release (Ecotrin Low Strength) 81 mg PO QAM insulin degludec 200 unit/mL (3 mL) subcutaneous pen (Tresiba FlexTouch U-200 insulin) 25 unit subcut HS metoprolol tartrate 100 mg tablet 100 mg PO BID tamsulosin 0.4 mg capsule 0.4 mg PO HS STOP 7 days before surgery tirzepatide 5 mg/0.5 mL subcutaneous pen injector (Mounjaro) 5 mg (0.5 mL) subcut .weekly ASK your prescriber and surgeon aspirin 81 mg tablet,delayed release (Ecotrin Low Strength) 81 mg PO QAM pentosan polysulfate sodium 100 mg capsule (Elmiron) 100 mg PO QAM STOP taking 24 hours before surgery nystatin 100,000 unit/gram topical powder 1 applic topical TID PRN DO NOT take the morning of surgery sucralfate 1 gram tablet 1,000 mg PO QID folic acid 800 mcg tablet 800 mcg PO DAILY furosemide 20 mg tablet 20 mg PO QAM Take morning of surgery With a small sip of water, OTHERWISE NOTHING TO EAT OR DRINK AFTER MIDNIGHT: metoprolol tartrate 100 mg tablet 100 mg PO BID pantoprazole 40 mg tablet,delayed release 40 mg PO BID dutasteride 0.5 mg capsule (Avodart) 0.5 mg PO QAM Take evening before surgery tamsulosin 0.4 mg capsule 0.4 mg PO HS metoprolol tartrate 100 mg tablet 100 mg PO BID insulin degludec 200 unit/mL (3 mL) subcutaneous pen (Tresiba FlexTouch U-200 insulin) 25 unit subcut HS pantoprazole 40 mg tablet,delayed release 40 mg PO BID allopurinol 100 mg tablet 100 mg PO QPM sucralfate 1 gram tablet 1,000 mg PO QID atorvastatin 20 mg tablet 20 mg PO HS Other Notes If you have any questions please call us at [phone] or [phone] or [phone] or [phone]
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
[~2023-04-18 10:14] MED LIST changes: +BUPIVACAINE 0.5 % 5 MG/1 ML PF 10ML VIAL ONE; -CIPROFLOXACIN / D5W 400 MG/200 ML BAG IV SCH
--- NOTE | 2023-04-18 10:56 | History & Physical Bridge Note ---
Date of Service April 18, 2023 History & Physical Bridge Note I have examined the patient, reviewed the History & Physical and in the interval since the performance of the History & Physical I have noted the following changes of clinical significance: no changes noted
[2023-04-18] MEDS: SODIUM CHLORIDE 0.9% 1000ML IV SCH (11:03)
[2023-04-18] MEDS: ACETAMINOPHEN 500 MG TAB PO SCH ×2 (11:07→21:04)
[2023-04-18] MEDS: GABAPENTIN 300 MG CAP PO SCH (11:07)
[2023-04-18] MEDS: dexAMETHasone**PF** 10 MG/ML VIAL IV SCH (11:07)
[2023-04-18] MEDS: FAMOTIDINE 20 MG TAB PO SCH (11:07)
[2023-04-18] MEDS: LR 60ML/HR IV SCH (11:08)
[2023-04-18] MEDS ORDERED: MIDAZOLAM HCL 1 MG/ML 2ML VIAL ONE (11:10)
[2023-04-18] MEDS ORDERED: ONDANSETRON INJ 2 MG/ML 2 ML VIAL ONE (11:11)
[2023-04-18] MEDS ORDERED: PROPOFOL IV EMULSION 10 MG/ML 20 ML VIAL IV ONE (11:11)
[2023-04-18] MEDS ORDERED: LIDOCAINE 2% 2 ML VIAL/AMP(20MG/ML) INFIL ONE (11:11)
[2023-04-18] MEDS ORDERED: fentaNYL citrate PF 100 MCG/2 ML VIAL ONE (11:11)
[2023-04-18] MEDS ORDERED: fentaNYL citrate PF 100 MCG/2 ML VIAL IV PRN (11:19)
[2023-04-18] MEDS ORDERED: ATROPINE SULFATE 0.1 MG/ML 10ML SYR IV PRN (11:19)
[2023-04-18] MEDS ORDERED: ONDANSETRON INJ 2 MG/ML 2 ML VIAL IV PRN (11:19)
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
[2023-04-18] MEDS ORDERED: CISATRACURIUM BESYLATE IV SOLN 2 MG/ML 10 ML VIAL IV ONE (11:34)
[2023-04-18 11:39] LABS: BUN Creatinine Ratio 7.2 (10-20); Blood Urea Nitrogen 41 mg/dl (6-23); Calcium 9.3 mg/dl (8.6-10.3); Carbon Dioxide 28 mmol/L (21-32); Chloride 94 mmol/L (98-107); Creatinine Clr Calc Pharmacy 12.4 ml/min; Est GFR (African American) 10.2 ml/min; Est GFR (Non-African American) 8.8 ml/min; Glucose 97 mg/dl (70-99(Fasting))
[2023-04-18] MEDS: TRANEXAMIC ACID 1,000 MG **IV Pre-op IV SCH (11:43)
[2023-04-18] MEDS: ceFAZolin 2000MG 2,000 MG/15 ML SYR IV SCH ×2 (11:54→19:20)
[2023-04-18] MEDS ORDERED: PHENYLEPHRINE 100MCG/ML 10ML SYR IV ONE (12:27)
[2023-04-18] MEDS ORDERED: ePHEDrine sulfate 50 MG/5 ML SYR ONE (12:27)
[2023-04-18] MEDS: TRANEXAMIC ACID 1,000 MG **IV Intra-op IV SCH (12:54)
[2023-04-18] MEDS: ROPIV 0.5% 246mg, Ketorolac 30mg, EPINEPHrine 0.5mg in NSS INFIL SCH (12:55)
[2023-04-18] MEDS: ORTHO JOINT ANESTHETIC ONE (12:55)
[2023-04-18] MEDS ORDERED: GLYCOPYRROLATE 0.2 MG/ML VIAL ONE ×2 (13:03→13:05)
[2023-04-18] MEDS ORDERED: NEOSTIGMINE METHYLSULFATE 1 MG/ML 10ML VIAL ONE (13:03)
--- NOTE | 2023-04-18 13:08 | Operative Report ---
PG Post Operative Report Pre & Post Diagnosis Operation Date: 04/18/23 12:00 Pre-Op Diagnosis: Osteoarthritis of right shoulder with tendinopathy long head of biceps tendon Post-Op Diagnosis: Osteoarthritis of right shoulder with tendinopathy long head of biceps tendon I identified the patient and participated in the time-out.: Yes Procedure Operation Date: 04/18/23 12:00 Actual Procedures p Right Anatomic Total Shoulder Arthroplasty(Right) with open biceps tenodesis as a distinct and separate procedure (modifier 59)- Leon Rodríguez DO Surgeon Leon Rodríguez DO Coo Leon Bryan PA-C Estimated Blood Loss 150 Findings Consistent with Post-Op Diagnosis Specimens Right humeral head Description of Procedure A CPT code modifier 59: The long head of the biceps tendon was enlarged and inflamed consistent with tendinopathy. A tenodesis was opted. This was a separate and distinct portion of the procedure. For these reasons, a CPT code modifier 59 will be added to this case. Implants used: I used a [employer] Comprehensive total shoulder arthroplasty system with a size 13 press fit micro humeral stem, a size 50 x 21 eccentric humeral head, and a 4 glenoid with a trabecular metal peg. The glenoid was cemented in place with Palacos G cement. Linwood arrived at [facility] for the above procedure. He was seen in the preoperative holding area and the operative extremity was identified and signed. He was given a preoperative antibiotic, TXA, and an interscalene nerve block. He was taken back to the operating room, laid on table in supine position, and put under general anesthesia. He was then put into the beachchair position. The shoulder was then prepped and draped in sterile fashion. A timeout was done and the patient and the operative extremity was properly identified. A deltopectoral approach was used. Dissection was taken down through the fascia and the deltoid was retracted laterally and the conjoined tendon was retracted medially. The anterior shoulder was exposed. the biceps groove was opened up and the biceps tendon was examined extensively. The biceps tendon demonstrated enlargement and inflammatory changes consistent with longstanding inflammation in the context of osteoarthritis. The long head of the biceps tendon was then tenodesed to the upper border of the pectoralis major. This was a separate and distinct portion of the procedure. The subscapularis was then released off the lesser tuberosity with a centimeter of cuff tissue remaining. The inferior capsule was released and the humeral head was dislocated. The rotator cuff was inspected and intact. A canal finding reamer was sent down the center of the humeral canal. Sequential reaming up to a size 13 reamer was done. Offset reamer a proximal humeral resection guide was placed. The proximal humerus was resected at 135 of inclination and 30 of retroversion. Inferior osteophytes were then removed and the glenoid was exposed. Time was spent doing an appropriate labral release. The glenoid measured to be a size 4. A 3.2 mm Steinmann pin was placed in the central hole of the glenoid vault pin guide. The glenoid was then reamed with a propeller reamer. The central post cutter was then used to prepare for the central boss. The cannulated peripheral peg drill guide was then placed and 3 peg holes were drilled. The final size 4 glenoid was then cemented in place with Palacos G cement. Surrounding soft tissues were then injected with 100 cc of an orthopedic pain control cocktail. Once cement had dried the proximal humerus was once again exposed. Sequential broaching of the humerus up to a size 13 broach was done. Off that broach a size 50 x 21 eccentric humeral head was trialed. The shoulder was then reduced, brought through a full range of motion, and felt to be stable. The shoulder was then dislocated and the broach was removed. The final size 13 micro humeral stem implant was then impacted into place. A size 50 x 21 eccentric humeral head was then impacted onto the humeral stem. The shoulder was then reduced and once again brought through a full range of motion and felt to be stable. The subscapularis was then tenodesed back to the lesser tuberosity with transosseous FiberWire sutures and side to side sutures with the arm in 45 of external rotation. 2 sutures were placed in the lateral rotator interval. A dilute betadyne lavage was then done for 3 minutes. The joint was then irrigated with normal saline solution. Hemostasis was obtained. The interval was closed with 2-0 Vicryl suture. The skin was closed with 2-0 Vicryl and yenni. A Silverlon dressing was placed and the arm was rested in a regular arm sling. He was then extubated and transferred to a hospital bed. He was taken to the postanesthesia care unit in stable condition. He tolerated the procedure well. Leon Bryan PA-C, was present for the entire procedure. He was critical for patient positioning, prepping, draping, retraction exposure, wound closure and application of sterile dressing. I attest to the content of the Intraoperative Record and any orders documented therein. Any exceptions are noted below.
--- NOTE | 2023-04-18 14:41 | XRay Report ---
XR shoulder RT min 2V routine HISTORY: 77 years-old Male Post shoulder surgery right shoulder arthroplasty COMPARISON: 02/21/2023 TECHNIQUE: 2 views of the right shoulder FINDINGS: Satisfactory alignment of the right shoulder arthroplasty. Overlying skin yenni are noted along wit h expected postoperative soft tissue swelling with deep tissue air. IMPRESSION: Right shoulder arthroplasty with expected postoperative changes. ACT 112: Negative or not required by law. The above report was generated using voice recognition software. It may contain grammatical, syntax o r spelling errors. Electronically signed by: Davis Ward M.D. 04/18/2023 2:40 PM
[2023-04-18] MEDS ORDERED: HYDROmorphone INJ 0.5 MG/0.5 ML SYR IV PRN (14:47)
[2023-04-18] MEDS ORDERED: METOCLOPRAMIDE HCL INJ 5 MG/ML 2 ML VIAL IV PRN (14:47)
[2023-04-18] MEDS ORDERED: oxyCODONE HCL IR 5 MG TAB (IMMEDIATE RELEASE) PO PRN (14:47)
[2023-04-18] MEDS ORDERED: NALOXONE HCL 0.4 MG/1 ML VIAL/CARP IV PRN (14:47)
[2023-04-18] MEDS ORDERED: MAGNESIUM HYDROXIDE SUSP 30 ML UDC PO PRN (14:47)
[2023-04-18] MEDS ORDERED: PHARMACY GLYCEMIC MGMT CONSULT PRN (14:47)
[2023-04-18] MEDS ORDERED: bisacodyL 10 MG SUPP PR PRN (14:47)
--- NOTE | 2023-04-18 15:08 | Anesthesiology Progress Note ---
Date of Service April 18, 2023 Anesthesia Post Procedure Vital Signs Vital Signs: Temp Pulse Pulse Resp BP Pulse Ox O2 Del Method 04/18/23 14:48 36.4 C L 82 18 124/79 94 Nasal Cannula 04/18/23 14:25 87 18 131/62 93 Nasal Cannula 04/18/23 14:15 36.3 C L 84 21 114/59 L 94 Nasal Cannula 04/18/23 14:05 87 21 148/61 H 94 Nasal Cannula 04/18/23 13:55 89 21 130/61 91 Room Air 04/18/23 13:45 91 H 20 142/66 H 92 Room Air 04/18/23 13:35 92 H 18 128/55 L 91 Room Air 04/18/23 13:27 36.0 C L 94 H 20 132/53 L 98 Room Air 04/18/23 10:52 36.7 C 76 18 122/72 94 Room Air O2 Flow Rate 04/18/23 14:48 2 04/18/23 14:25 04/18/23 14:15 04/18/23 14:05 04/18/23 13:55 04/18/23 13:45 04/18/23 13:35 04/18/23 13:27 04/18/23 10:52 Transfer of Care Handoff Completed per policy Notes Mental Status: alert / awake / arousable Patient Amnestic to Procedure: Yes Nausea / Vomiting: adequately controlled Pain: adequately controlled Airway Patency, RR, SpO2: stable & adequate BP & HR: stable & adequate Hydration State: stable & adequate Anesthetic Complications: no major complications apparent
[2023-04-18] MEDS: SODIUM CHLORIDE 0.9% 1,000 ML IV SCH (15:14)
[2023-04-18] MEDS ORDERED: DEXTROSE 50% 50 ML SYRINGE IV PRN (15:30)
[2023-04-18] MEDS ORDERED: GLUCOSE 40% GEL 15 GM TUBE PO PRN (15:30)
[2023-04-18] MEDS ORDERED: CARBOHYDRATES FOR HYPOGLYCEMIA PO PRN (15:30)
[2023-04-18] MEDS ORDERED: GLUCOSE 10 TAB/TUBE PO PRN (15:30)
[2023-04-18] MEDS ORDERED: GLUCAGON FOR INJ 1 MG VIAL IM PRN (15:30)
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
[2023-04-18] MEDS: SUCRALFATE 1 GM TAB PO SCH (16:52)
[2023-04-18 17:40] LABS: Calcium 8.6 mg/dl (8.6-10.3); Creatinine Clr Calc Pharmacy 12.2 ml/min; Est GFR (Non-African American) 8.6 ml/min; Potassium 4.7 mmol/L (3.5-5.1)
[2023-04-18] MEDS: INSULIN ASPART PER UNIT CHARGE SC SCH (17:45)
[2023-04-18] MEDS: LANTUS PER UNIT CHARGE SC SCH (17:46)
[2023-04-18] MEDS: PANTOprazole 40 MG TAB PO SCH (21:03)
[2023-04-18] MEDS: allopurinoL 100 MG TAB PO SCH (21:03)
[2023-04-18] MEDS: METOPROLOL TARTRATE 100 MG TAB PO SCH (21:03)
[2023-04-18] MEDS: ATORVASTATIN 20 MG TAB PO SCH (21:03)
[2023-04-18] MEDS: TAMSULOSIN HCL 0.4 MG CAP PO SCH (21:03)
[2023-04-18] MEDS: DOCUSATE SODIUM 100 MG CAP PO SCH (21:04)
[2023-04-18] MEDS: SENNA 8.6 MG TAB PO SCH (21:04)
[2023-04-19] MEDS: INSULIN ASPART PER UNIT CHARGE SC SCH (00:30)
[2023-04-19] MEDS ORDERED: SODIUM CHLORIDE 0.9% 1,000 ML IV PRN (07:00)
[2023-04-19] MEDS: FINASTERIDE 5 MG TAB PO SCH (08:32)
[2023-04-19] MEDS: ASPIRIN 81 MG ECTAB PO SCH (08:33)
[2023-04-19] MEDS: MULTIVITAMIN TAB PO SCH (08:34)
--- NOTE | 2023-04-19 10:28 | Nephrology Progress Note ---
Date of Service April 19, 2023 Assessment & Plan (1) ESRD (end stage renal disease): Plan: * Outpatient HD Rx: [facility] MWF 3.5hr, 3K 2.5Ca, F-180NR, Na 140, HCO3 32, EDW 101 kg, L BC AVF * Will provide HD this am according to chronic outpatient prescription. Orders have been entered into EMR and HD RN notified * Recommend diabetic, dialysis diet (2) Anemia: Plan: * Awaiting H&H results (3) Status post replacement of right shoulder joint: Admission and Anticipated Discharge Date Admission Date: April 18, 2023 Subjective Mr. Milton was evaluated in his hospital room this morning. He c/o numbness involving his R hand. 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 He denies fever, angina, dyspnea, N/V/D. He hopes to have HD today and then return home Review of Systems Constitutional: no fever Eyes: no problem reported Ear, Nose, Mouth, Throat: no problem reported Respiratory: no cough and no dyspnea Cardiovascular: no chest pain Gastrointestinal: no abdominal pain, no nausea, no vomiting and no diarrhea/loose stools Integumentary: no rash Neurologic: no problem reported Physical Exam Constitutional: not in distress Eyes: PERRL, conjunctivae normal, anicteric sclerae ENMT: external ear and nose normal, oropharynx normal Neck: trachea midline, no thyromegaly Respiratory: normal respiratory effort, lungs clear to auscultation Cardiovascular: Rate/Rhythm: regular rate and regular rhythm Heart Sounds: + murmur Gastrointestinal (Abdomen): normal bowel sounds, soft, nontender, no hepatosplenomegaly Musculoskeletal: Extremities: no cyanosis R arm in sling Skin: no rashes, warm and dry Neurologic: Speech / Cognition: normal speech and normal cognition Results & Data Vital Signs (Past 12 Hours) Vital Signs Temp Pulse Pulse Pulse Resp BP BP 04/19/23 10:00 69 119/56 L 04/19/23 09:30 69 137/60 04/19/23 08:49 36.3 C L 61 04/19/23 08:23 36.4 C L 81 16 174/97 H 04/19/23 03:49 36.6 C 72 18 142/88 H 04/19/23 00:00 36.7 C 79 18 153/71 H Pulse Ox O2 Del Method 04/19/23 10:00 04/19/23 09:30 04/19/23 08:49 04/19/23 08:23 95 Room Air 04/19/23 03:49 94 Room Air 04/19/23 00:00 94 Room Air Laboratory Results Laboratory Results - last 24 hr 04/18/23 04/18/23 04/18/23 10:34 10:40 10:42 Sodium TNP Potassium TNP Chloride 94 L Carbon Dioxide 28 Anion Gap TNP BUN 41 H Creatinine 5.67 H* Est Cr Clr Drug Dosing 12.4 Est GFR ( Amer) 10.2 Est GFR (Non-Af Amer) 8.8 BUN/Creatinine Ratio 7.2 L Glucose 97 POC Glucose 97 Calcium 9.3 Nasal Screen MRSA (PCR) SARS-CoV-2, RNA, NAAT NEGATIVE 04/18/23 04/18/23 04/18/23 13:30 16:44 16:58 Sodium 133 L Potassium 4.7 Chloride 97 L Carbon Dioxide 23 Anion Gap 13 H BUN 46 H Creatinine 5.78 H* Est Cr Clr Drug Dosing 12.2 Est GFR ( Amer) 10.0 Est GFR (Non-Af Amer) 8.6 BUN/Creatinine Ratio 8.0 L Glucose 153 H POC Glucose 122 H 170 H Calcium 8.6 Nasal Screen MRSA (PCR) SARS-CoV-2, RNA, NAAT 04/18/23 04/18/23 04/19/23 17:11 20:27 00:18 Sodium Potassium Chloride Carbon Dioxide Anion Gap BUN Creatinine Est Cr Clr Drug Dosing Est GFR ( Amer) Est GFR (Non-Af Amer) BUN/Creatinine Ratio Glucose POC Glucose 211 H 187 H Calcium Nasal Screen MRSA (PCR) Negative SARS-CoV-2, RNA, NAAT 04/19/23 04/19/23 04:11 07:34 Sodium Potassium Chloride Carbon Dioxide Anion Gap BUN Creatinine Est Cr Clr Drug Dosing Est GFR ( Amer) Est GFR (Non-Af Amer) BUN/Creatinine Ratio Glucose POC Glucose 161 H 137 H Calcium Nasal Screen MRSA (PCR) SARS-CoV-2, RNA, NAAT PG Care Time/CCT Total # of Minutes Spent Total Time Spent with Patient: Total time spent is greater than 50% in coordination of care (as documented) at patient's floor/unit and/or counseling patient: Coding Level of Care Code 93171 SUB INP/OBS CARE MIN Diagnoses ESRD (end stage renal disease) N18.6 Anemia D64.9 Status post replacement of right shoulder joint Z96.611
--- NOTE | 2023-04-19 10:56 | Pharmacy Report ---
Pharmacy Glycemic Short Note 2 - Date of Service April 19, 2023 - Glycemic Short BSG Results (Last 24 hours): 04/18/23 04/18/23 04/18/23 10:34 13:30 16:44 Glucose 97 POC Glucose 122 H 170 H 04/18/23 04/18/23 04/19/23 16:58 20:27 00:18 Glucose 153 H POC Glucose 211 H 187 H 04/19/23 04/19/23 04:11 07:34 Glucose POC Glucose 161 H 137 H OUTPATIENT ANTIDIABETIC REGIMEN: * tresiba 25 units HS ASSESSMENT: * 77 year old s/p right total shoulder arthroplasty, POD 1 - pharmacy consulted for glycemic management postop. Patient is ESRD on HD schedule MWF and is type 2 diabetic. Received IV steroids intraoperatively yesterday. Received total of 24 units of insulin yesterday, of which 12 units were basal insulin * Fasting BSG 137 mg/dL - reasonable to continue similar basal this evening. May provide a slightly lower scale 10-12 units as likely steroids wearing off today and insulin needs may decrease * Plan to loosen CF/CR later today as steroids wear off, will trend PLAN FOR INPATIENT GLYCEMIC CONTROL: * Hold outpatient oral diabetes medications * Basal insulin * Lantus 10-12 units HS * Bolus insulin * NovoLog per scale ACHS or Q6hrs while NPO * Goal Range: Low 110 mg/dL - High 140 mg/dL * Correction Factor: 25 mg/dL/unit * Nutritional / Prandial insulin per carb ratio of 1 unit per 8 grams CHO consumed
[2023-04-19] MEDS: FUROSEMIDE 20 MG TAB PO SCH (13:37)
--- NOTE | 2023-04-19 14:08 | Orthopedic Progress Note ---
Date of Service April 19, 2023 Assessment & Plan (1) Status post replacement of right shoulder joint: Overall he is doing well. He is not having much pain in the right shoulder. He was already seen by physical therapy and was able to do ambulation and range of motion exercises. He is ready for discharge to home. He will follow-up with orthopedics in 2 weeks. Subjective Alfa was seen and examined at bedside this morning. Overall is doing very well. Is not having much pain in the right shoulder. He did go to dialysis this morning. He has no complaints.. Review of Systems All systems reviewed & are unremarkable except as noted in HPI & below. Physical Exam On physical examination of the right shoulder, the dressing is clean and dry. He is wearing his sling as instructed. He has active motion of his hand and his wrist.. Results & Data Results & Data Laboratory Results . Diagnostic Findings Postoperative x-rays of the right shoulder show the prosthesis to be in anatomic alignment without any evidence of fracture complication, or loosening.. PG Care Time/CCT Total # of Minutes Spent Total Time Spent with Patient: Total time spent is greater than 50% in coordination of care (as documented) at patient's floor/unit and/or counseling patient: Coding Level of Care Code 19796 Post Operative Follow-Up Diagnoses Status post replacement of right shoulder joint Z96.611
--- NOTE | 2023-04-19 14:09 | Discharge Summary ---
Date of Service April 19, 2023 Admission HPI (Per Admitting) Alfa is a pleasant 77-year-old male who has been dealing with chronic increasing right shoulder pain. I did a left anatomic shoulder replacement on him in 2019 and he has done great with that. Unfortunately, he is now really struggling with his right shoulder. He is having trouble doing anything away from his body or up overhead. X-rays have shown worsening arthritis. After failing conservative treatment, he has elected to proceed with a right total shoulder arthroplasty. . Admission Exam (Per Admitting) On physical examination of the right shoulder, he has about 30 degrees of forward elevation and 30 degrees of abduction. He has good strength. He has crepitus throughout range of motion.. Principal Diagnosis Same as "Discharge Diagnosis" noted below under Discharge Instructions. Discharge Exam On physical examination of the right shoulder, the dressing is clean and dry. He is wearing his sling as instructed. He has active motion of his hand and his wrist.. Discharge Data Consultations 04/18/23 14:47 Consult Nephrology Routine Procedures Performed Operation Date: 04/18/23 12:00 Actual Procedures p Right Anatomic Total Shoulder Arthroplasty(Right) - Leon Rodríguez DO Ordered Studies 04/18/23 05:00 US - OR guided needle placemen Stat Hospital Course (1) Status post replacement of right shoulder joint: On April 18, 2023 Alfa arrived at [facility] and underwent a right shoulder replaced without complication. Postoperatively he was placed in a sling and transferred to the general orthopedic floors. His hospital course was uneventful. On postop day #1, his vital signs were relatively stable and his pain was well-controlled. He was able to go to dialysis in the morning. Later that day he was seen by physical therapy and was able to do ambulation and range of motion exercises. He was then discharged home. He will follow-up with orthopedics in 2 weeks. PG Care Time/CCT Total # of Minutes Spent Total Time Spent with Patient: Total time spent is greater than 50% in coordination of care (as documented) at patient's floor/unit and/or counseling patient: Discharge Plan Discharge Items Patient Disposition: Home - Self-Care Reason For Visit: Degenerative Joint Disease Right Shoulder Discharge Diagnosis: Status post right shoulder Activity: Per Instructions section Non-emergency contact: Surgeon Call non-emergency contact if: your wound has increased redness and your wound has increased drainage Follow-up/Referrals: Leon Lainez, [Primary Care Provider] - Diet: Regular Ambulatory Orders: SARS CoV2 RNA(COVID-19)[place] (Routine) Timeframe: [id number] Location: Determined by Patient Ordered By: Leon Locke Attending Provider Instructions: Activity and Therapy Recommendations: * If you are using [facility] then therapy will be provided at your home until they feel you have accomplished all of your goals. * If you are using [facility] then Physical Therapy will be provided until they feel you are ready to start Outpatient Physical Therapy. * If you are not using home therapy then Outpatient Physical Therapy should start about 3-5 days from your day of surgery. Therapy will last about 8-12 weeks * Wear your sling for 3 weeks, unless otherwise instructed. You may remove your sling to shower and to dress, but otherwise, you should be in your sling at all times, including while sleeping * The shoulder replacement is very stable and you can use your hand while in the sling * You were shown a series of exercises in the hospital. Do these exercises daily including the exercises you were shown in physical therapy. Medications: * Narcotic You will likely be sent home from the hospital with a prescription for the narcotic pain medication that worked best throughout your stay. * Cefadroxil -take the antibiotic twice a day for 10 days to help prevent infection. * Other medications may be prescribed for specific circumstances. If you have any questions, please call the office at . * Resume previous home medications unless otherwise instructed Dressing Care: Leave the Silverlon dressing in place for 7 days. After 7 days you may remove the dressing. If the incision is not draining then you may leave the yenni open to air. If there is a little bit of drainage or if the yenni are getting stuck on your clothing then cover the incision with a dry dressing. The yenni will be removed at your 2 week follow-up appointment. Showering: You may shower with the Silverlon dressing in place. Do not let the shower spray hit the dressing directly. Pat the Silverlon dressing dry. If the dressing becomes wet underneath, then simply remove the dressing. Keep the incision dry until you are 7 days out from the day of surgery. After 7 days you may remove the Silverlon dressing and shower with the yenni exposed. Let soapy water run over the yenni and pat them dry. Do not scrub or soak the incision. Things To Watch For: * Drainage from the incision site that occurs more than one week after your surgery. * Increased redness at the incision site. * Fever above 102 degrees Fahrenheit. * Unusual chest pain or shortness of breath. * Call [facility] at with any of the above problems Follow-Up Visit: Follow-up with Dr. Rodríguez's PA (Leon Bryan) 2-3 weeks after your day of surgery. He will remove your yenni and answer any questions. If you have any additional questions or concerns, Dr Rodríguez is usually in the office at the same time and will be available An appointment was probably scheduled when you signed-up for surgery in the office. If you have any questions call More detailed instructions as well as Frequently Asked Questions were provided in a folder by our office when you signed-up for surgery. Please review these instructions when you get home. If you have any further questions or concerns, please feel free to call the office at [phone] Pending Studies at Discharge: No Stand-Alone Forms: My [facility] Medications and DC Order Prescriptions: New tramadol 50 mg tablet 50 mg PO Q6H PRN (Reason: pain) Qty: 30 0RF cefadroxil 500 mg capsule 500 mg PO BID 10 Days Qty: 20 0RF Continued dutasteride [Avodart] 0.5 mg capsule 0.5 mg PO QAM Qty: 90 3RF (DME) pen needle, diabetic [BD Ultra-Fine Shira Pen Needle] 32 gauge x 5/32" needle See Rx Instructions .ROUTE .MEDSUPPLY Qty: 400 3RF Rx Instructions: use to inject insulin 4 times daily furosemide 20 mg tablet 20 mg PO QAM Qty: 90 3RF atorvastatin 20 mg tablet 20 mg PO HS Qty: 90 3RF (DME) FreeStyle Lite Strips Strip See Dose Instructions .ROUTE .MEDSUPPLY Qty: 200 3RF Dose Instruction: As directed Rx Instructions: TEST 4 TIME DAILY AND PRN dx E11.9 sucralfate 1 gram tablet 1,000 mg PO QID 90 Days Qty: 360 1RF Hold Instructions: taking break from this medication allopurinol 100 mg tablet 100 mg PO QPM Qty: 90 3RF nystatin 100,000 unit/gram powder 1 applic TOP TID PRN (Reason: Skin Irritation) Qty: 30 1RF Mounjaro 5 mg/0.5 mL pen injector 5 mg subcut .weekly Qty: 2 3RF Patient Comments: SUNDAYS > LAST DOSE TO BE MAR 31, 2023 pantoprazole 40 mg tablet,delayed release (DR/EC) 40 mg PO BID Qty: 180 3RF metoprolol tartrate 100 mg tablet 100 mg PO BID Qty: 90 3RF insulin degludec [Tresiba FlexTouch U-200] 200 unit/mL (3 mL) insulin pen 25 unit SUBCUT HS Qty: 9 3RF Rx Instructions: Takes at midnight Elmiron 100 mg Capsule 100 mg PO QAM folic acid 800 mcg tablet 800 mcg PO DAILY Qty: 30 5RF aspirin [Ecotrin Low Strength] 81 mg tablet,delayed release (DR/EC) 81 mg PO QAM tamsulosin 0.4 mg capsule 0.4 mg PO HS Patient Comments: sometimes at night Discharge Orders: Discharge Order (Routine); Ordered 04/19/23 Ordered By: Leon Rodríguez Admission Data Admit Date/Time: 04/18/23 13:24 Attending Provider: Leon Rodríguez Admit Provider: Leon Rodríguez Primary Care Provider: Leon Lainez Other Providers: Saul Tomlinson; Victor Manuel Graham Kevin C.; Andra Rdz
[2023-04-19 14:51] LABS: Hematocrit (blood only) 33.9 % (42.0-52.0); Hemoglobin 11.5 g/dl (14.0-18.0); Mean Corpuscular Hemoglobin 31.6 pg (25.0-34.0); Mean Corpuscular Hgb Conc 33.9 g/dL (32.0-36.0); Mean Corpuscular Volume 93.1 fL (80.0-100.0); Mean Platelet Volume 10.7 fL (9.4-12.4); Platelet Count 165 K/uL (130-400); RDW Standard Deviation 51.5 fL (36.4-46.3); Red Blood Count 3.64 M/uL (4.70-6.10); White Blood Count 12.46 K/ul (4.8-10.8)
[2023-04-19 15:05] LABS: Calcium 9.2 mg/dl (8.6-10.3); Creatinine Clr Calc Pharmacy 21.1 ml/min; Est GFR (African American) 19.4 ml/min; Est GFR (Non-African American) 16.7 ml/min; Potassium 4.3 mmol/L (3.5-5.1)
[2023-04-19] MEDS ORDERED: LANTUS PER UNIT CHARGE SC SCH (21:00)
== END 2023-04-19 15:30 | disposition home or self-care (01) ==
LOC: ASU 10:14 → 3N 10:14